=== PATIENT | female | born 1960 | race Caucasian/White ===

== ENCOUNTER 2022-12-12 17:37 | Inpatient (IN) | payer OTHER ==
[~2022-12-12] VITALS: Ht 30.5 cm; Wt 99.8 kg
--- NOTE | 2022-12-12 17:35 | NUR ---
PT ARRIVED ONTO UNIT, ACCOMPANIED BY [facility]. PT IS ALERT AND ORIENTED X3. ABLE TO VERBALIZE NEEDS, ABLE TO FOLLOW COMMANDS. PT IS ON 2L 02 VIA NC. NO SIGNS OF DISTRESS NOTED. NO COMPLAINTS OF SOB. ABD IS NONTENDER, NONDISTENDED WITH BOWEL SOUNDS PRESENT. PT IS ON CARDIAC MONITORING, SR AT THIS TIME. PT HAS HX OF SCHIZOPHRENIA, AND BIPOLAR DISORDER. DIAGNOSIS IS UTI. PT IS ON REGULAR DIET. LAST BOWEL MOVEMENT WAS ON 12/11/22. SKIN IS WARM, DRY, AND INTACT. VS TAKEN. MRSA SWAB DONE. PT IS DIRECT ADMISSION FROM [facility]. CALL LIGHT WITHIN REACH. ALL SAFETY MEASURES IN PLACE.
[2022-12-12] MEDS ORDERED: MAG SULF 2000 MG/WATER PREMIX 50 ML IV PRN (18:30)
[2022-12-12] MEDS ORDERED: ACETAMINOPHEN 325 MG TAB PO PRN (18:30)
[2022-12-12] MEDS ORDERED: DOCUSATE SODIUM 100 MG GELCAP PO PRN (18:30)
[2022-12-12] MEDS ORDERED: MORPHINE SULFATE 2 MG/ML SYR IVP PRN (18:30)
[2022-12-12] MEDS ORDERED: ONDANSETRON 4 MG/2 ML VIAL IVP PRN (18:30)
[2022-12-12 18:56] LABS: BASOPHILS # (AUTO) 0.1 K/uL (0.00-0.22); BASOPHILS % (AUTO) 0.6 % (0.0-2.0); EOSINOPHILS # (AUTO) 0.1 K/uL (0-0.4); EOSINOPHILS % (AUTO) 0.8 % (0.0-4.0); HEMATOCRIT 39.3 % (36-48); HEMOGLOBIN 13.1 g/dL (12.0-16.0); LYMPHOCYTES # (AUTO) 1.6 K/uL (2.5-16.5); LYMPHOCYTES % (AUTO) 10.4 % (20.5-51.1); MEAN CORPUSCULAR HEMOGLOBIN 29 pg (27-31); MEAN CORPUSCULAR HGB CONC 33 g/dL (33-37); MEAN CORPUSCULAR VOLUME 85.6 fL (80-94); MONOCYTES # (AUTO) 1.5 K/uL (0.8-1.0); MONOCYTES % (AUTO) 9.7 % (1.7-9.3); NEUTROPHILS # (AUTO) 11.9 K/uL (1.8-7.7); NEUTROPHILS % (AUTO) 78.5 % (42.2-75.2); PLATELET COUNT (AUTO) 345 K/uL (140-450); RED BLOOD CELL COUNT(AUTO) 4.59 MIL/uL (4.20-5.40); RED CELL DISTRIBUTION WIDTH 14.2 % (11.6-13.7); WHITE BLOOD COUNT (AUTO) 15.1 K/uL (4.8-10.8)
[2022-12-12 19:13] LABS: ALBUMIN 3.1 g/dL (3.4-5.0); ANION GAP 8.7 (8-16); CARBON DIOXIDE 31.1 mmol/L (21-32); CREATININE 0.5 mg/dL (0.6-1.3); TOTAL BILIRUBIN 0.4 mg/dL (0.0-1.0)
[2022-12-12 19:35] LABS: POTASSIUM 2.8 mmol/L (3.5-5.1)
--- NOTE | 2022-12-12 19:41 | NUR ---
ENDORSED PT TO AIR SUPPORT OPERATIONS OPERATOR NURSE, RALPH, FOR CONTINUITY OF CARE. PT IS STABLE.
--- NOTE | 2022-12-12 19:42 | NUR ---
RECD. RESTING IN BED, AWAKE, A/OX3. RESPIRATION EVEN AND UNLABORED. NEWLY INSERTED IV SALINE LOCK AT THE RIGHT AC G20, PATENT AND INTACT. VERBALIZED SHE USES A WALKER AT HOME. BEDSIDE COMMODE PLACED BESIDE BED. DENIES PAIN 0/10.
[2022-12-12 20:00] VITALS: BP 143/73
--- NOTE | 2022-12-12 20:00 | NUR ---
Patient's Plan of Care was discussed and reviewed with RALPH FERNANDO:
--- NOTE | 2022-12-12 21:00 | NUR ---
CHICKEN SANDWICH GIVEN BUT REFUSED TO EAT, DOES NOT LIKE THE TASTE. PUDDING AND CRACKERS GIVEN.
[2022-12-12] MEDS ORDERED: cefTRIAXone 1,000 MG VIAL ONE (21:44)
--- NOTE | 2022-12-12 22:00 | NUR ---
ASSISTED TO GO TO [facility]. ABLE TO VOID MODERATE AMOUNT OF CLEAR YELLOW URINE. REFUSED TO PUT SIDE RAILS UP. EXPLAINED ITS IMPORTANCE BUT STILL REFUSED.
[2022-12-12] MEDS ORDERED: HYDROXYZINE HYDROCHLORIDE 25 MG TAB PO SCH (22:55)
[2022-12-12] MEDS ORDERED: THEOPHYLLINE 300 MG TABER PO SCH (22:55)
[2022-12-12] MEDS: POTASSIUM CHLORIDE 10 MEQ TABER PO PRN (23:47)
--- NOTE | 2022-12-12 23:47 | NUR ---
K LEVEL - 2.8, MEDICATED WITH 40 MEQ K-DUR PO PER MD ORDER.
[2022-12-13] VITALS: BP 145/75
[2022-12-13] MEDS: oxyCODONE/APAP 5/325 MG 1 TAB TAB PO PRN ×4 (01:58→22:12)
[2022-12-13] MEDS: ZOLPIDEM 10 MG TAB PO PRN ×2 (02:44→22:12)
--- NOTE | 2022-12-13 02:45 | NUR ---
UNABLE TO SLEEP, MEDICATED WITH AMBIEN PER MD ORDER.
--- NOTE | 2022-12-13 03:30 | NUR ---
INFORM DR. CARRILLO, THEOPHYLLINE ER THAT PATIENT TAKES AT HOME NOT AVAILABLE IN THE [facility], PT REQUESTING FOR A REPLACEMENT FOR THIS MEDICATION. ORDERED BREATHING TREATMENT PRN FOR SOB/WHEEZING.
[2022-12-13 04:00] VITALS: BP 148/85
--- NOTE | 2022-12-13 05:30 | NUR ---
SITTING ON BED, ACCIDENTALLY WET HER BEDDINGS. ASSISTED TO CLEAN AND GOWN CHANGED.
--- NOTE | 2022-12-13 06:20 | NUR ---
INFORMED DR. JIMÉNEZ, PATIENT REFUSED TWICE FOR TELE MONITORING BOX TO BE PUT ON.
[2022-12-13] MEDS ORDERED: ALBUTEROL 0.083% 2.5 MG/3 ML NEBU INH PRN (06:25)
--- NOTE | 2022-12-13 07:23 | NUR ---
CONDITION REMAIN STABLE. ENDORSED TO AM SHIFT NURSE FOR CONTINUITY OF CARE.
[2022-12-13 07:45] LABS: BASOPHILS # (AUTO) 0.1 K/uL (0.00-0.22); BASOPHILS % (AUTO) 0.5 % (0.0-2.0); EOSINOPHILS # (AUTO) 0.2 K/uL (0-0.4); EOSINOPHILS % (AUTO) 1.8 % (0.0-4.0); HEMATOCRIT 39.1 % (36-48); HEMOGLOBIN 13.1 g/dL (12.0-16.0); LYMPHOCYTES # (AUTO) 1.9 K/uL (2.5-16.5); LYMPHOCYTES % (AUTO) 16.5 % (20.5-51.1); MEAN CORPUSCULAR HEMOGLOBIN 29 pg (27-31); MEAN CORPUSCULAR HGB CONC 34 g/dL (33-37); MEAN CORPUSCULAR VOLUME 86.1 fL (80-94); MONOCYTES % (AUTO) 8.9 % (1.7-9.3); NEUTROPHILS # (AUTO) 8.5 K/uL (1.8-7.7); NEUTROPHILS % (AUTO) 72.3 % (42.2-75.2); PLATELET COUNT (AUTO) 338 K/uL (140-450); RED BLOOD CELL COUNT(AUTO) 4.54 MIL/uL (4.20-5.40); RED CELL DISTRIBUTION WIDTH 14.4 % (11.6-13.7); WHITE BLOOD COUNT (AUTO) 11.7 K/uL (4.8-10.8)
[2022-12-13 08:00] VITALS: BP 133/71
[2022-12-13 08:16] LABS: ANION GAP 8.8 (8-16); CARBON DIOXIDE 32.3 mmol/L (21-32); CREATININE 0.5 mg/dL (0.6-1.3); MAGNESIUM 1.6 mg/dL (1.8-2.4); PHOSPHORUS 3.5 mg/dL (2.5-4.9); POTASSIUM 3.1 mmol/L (3.5-5.1)
[2022-12-13] MEDS: HYDROXYZINE HYDROCHLORIDE 25 MG TAB PO SCH ×3 (08:54→16:47)
[2022-12-13] MEDS: THEOPHYLLINE 300 MG TABER PO SCH ×3 (08:55→16:40)
[2022-12-13] MEDS: LORazepam 2 MG/ML VIAL IVP PRN ×3 (10:48→22:33)
[2022-12-13 12:00] VITALS: BP 135/54
--- NOTE | 2022-12-13 13:30 | NUR ---
DC PLANNING SW ATTEMPTED TO MEET WITH PT AT BEDSIDE TO COMPLETE ASSESSMENT HOWEVER, PT STRUGGLED TO STAY AWAKE. PT PROVIDED SW WITH PERMISSION TO CALL KA[facility] SERRANO, TO GATHER COLLAT INFO. OUTREACHED TO PTS DAUGHTER MAGGIE, HOWEVER MAGGIE UNAVAILABLE TO PROVIDE INFORMATION AT TIME OF CALL. MAGGIE REQUESTING TO CALL BACK. Addendum: 12/18/22 at 1619 by ABBY JARAMILLO CM DC PILLOW FILLER GENOVEVA: RECEIVED ORDER FOR SNF PLACEMENT. DC PILLOW FILLER FAXED TO [facility]. SPOKE WITH MURALI AND PT WAS ACCEPTED AT [place] [id number] . WILL BE GOING TO ROOM 9-A UNDER THE CARE OF DR. KIM NUMBER FOR REPORT IS . AUTH #[id number]. [facility] TRANSP[facility] WAS SETUP WITH [facility] FOR A 1999 PICKIP TIME. NURSE TAVON NEWELL CHARGE NURSE ZAIRA AND SISTER IN LAW FERNANDO AWARE OF THE ABOVE INFORMATION
--- NOTE | 2022-12-13 14:15 | NUR ---
SPOKE WITH SISTER MARIE, RECEIVED NUMBER FOR PT'S DAUGHTER MAGGIE WHO IS PRIMARY CAREGIVER.
--- NOTE | 2022-12-13 14:22 | NUR ---
SPOKE WITH PT'S PRIMARY CAREGIVER, DAUGHTER MAGGIE, CONFIRMED PREFERRED PHARMACY AND CODE STATUS. UPDATED DAUGHTER ON PT'S CONDITION.
[2022-12-13 16:00] VITALS: BP 138/63
--- NOTE | 2022-12-13 16:49 | NUR ---
PATIENT HAS BEEN SCREENED AND CATEGORIZED LOW NUTRITION RISK. PATIENT WILL BE SEEN WITHIN 7 DAYS OF ADMISSION. 12/19/[address]ZZ C[address]
[2022-12-13 17:41] LABS: APPEARANCE,URINE CLEAR (CLEAR); BILIRUBIN,URINE NEGATIVE (NEGATIVE); BLOOD, URINE 2+ (NEGATIVE); COLOR,URINE YELLOW (YELLOW); LEUKOCYTE ESTERASE ,URINE 1+ (NEGATIVE); NITRITE, URINE NEGATIVE (NEGATIVE); PH,URINE 7.5 (5.0-9.0); UGLUCOSE TRACE (NEGATIVE)
--- NOTE | 2022-12-13 18:39 | NUR ---
P.T. NOTES P.T. EVAL COMPLETED; REFER TO EVAL FOR DETAILS.
[2022-12-13] MEDS: POTASSIUM CHLORIDE 10 MEQ TABER PO PRN (19:18)
[2022-12-13 20:00] VITALS: BP 141/75
--- NOTE | 2022-12-13 20:00 | NUR ---
NURSE REPORT REPORT OBTAINED FROM DAYSTNFT NURSE AND THIS NURSE ASSUMED CARE OF PATIENT. MED SURG STATUS- SUNCE REFUSED TELE.
--- NOTE | 2022-12-13 22:00 | NUR ---
NURSE NOTES MEDICATED FOR PAIN WITH PERCOCET 1 TAB AND FOR ALSEEP AMBIEN. INCONTINENT OF URINE AND STOOL. PATIENT STILL ANXIOUS AND GIVEN ATIVAN 2 MG IVP.
[2022-12-14 04:00] VITALS: BP 174/102
--- NOTE | 2022-12-14 04:30 | NUR ---
NURSE NOTES PATIENT AWAKENED AND ASKED FOR PAIN MED AND ANXIETY MED. GIVEN PERCOCET 1 TAB PO AND ATIVAN 2 MG IVP X 1. SHE ALSO REQUESTED SLEEPING MED AND SHE WAS TOLD IT CAN'T BE GIVEN.
--- NOTE | 2022-12-14 07:30 | NUR ---
NURSE REPORT REPORT GIVEN TO [facility] NURSE IRVIN TO ASSUME CARE OF PATIENT. SBAR GIVEN. ALL QUESTIONS ANSWERED. YOLANDA CONTRERAS RN
--- NOTE | 2022-12-14 07:30 | NUR ---
RECEIVED REPORT FROM TACTICAL/MOBILE WATCH OFFICER NURSE FOR CONTINUITY OF CARE, POC DISCUSSED. PT STATES SHE WOULD LIKE A ROOM PHONE, TOLD HER ONE WILL GET SETUP IN HER ROOM SHORTLY. ON ROOM AIR WITH CHEST RISING AND FALLING EVEN AND UNLABORED. ALL SAFETY MEASURES IN PLACE, CALL LIGHT WITHIN REACH
[2022-12-14 07:31] LABS: ANION GAP 9.4 (8-16); BASOPHILS # (AUTO) 0.1 K/uL (0.00-0.22); BASOPHILS % (AUTO) 0.5 % (0.0-2.0); CARBON DIOXIDE 29.6 mmol/L (21-32); CREATININE 0.5 mg/dL (0.6-1.3); EOSINOPHILS # (AUTO) 0.4 K/uL (0-0.4); EOSINOPHILS % (AUTO) 3.5 % (0.0-4.0); HEMATOCRIT 39.1 % (36-48); HEMOGLOBIN 13.2 g/dL (12.0-16.0); LYMPHOCYTES # (AUTO) 2.2 K/uL (2.5-16.5); MEAN CORPUSCULAR HEMOGLOBIN 29 pg (27-31); MEAN CORPUSCULAR HGB CONC 34 g/dL (33-37); MEAN CORPUSCULAR VOLUME 85.6 fL (80-94); MONOCYTES # (AUTO) 1.1 K/uL (0.8-1.0); MONOCYTES % (AUTO) 9.3 % (1.7-9.3); NEUTROPHILS # (AUTO) 8.2 K/uL (1.8-7.7); NEUTROPHILS % (AUTO) 68.7 % (42.2-75.2); PLATELET COUNT (AUTO) 339 K/uL (140-450); RED BLOOD CELL COUNT(AUTO) 4.56 MIL/uL (4.20-5.40); RED CELL DISTRIBUTION WIDTH 14.2 % (11.6-13.7)
[2022-12-14 08:00] VITALS: BP 162/97
[2022-12-14] MEDS: POTASSIUM CHLORIDE 10 MEQ TABER PO PRN (08:52)
[2022-12-14] MEDS: HYDROXYZINE HYDROCHLORIDE 25 MG TAB PO SCH ×3 (08:53→17:35)
[2022-12-14] MEDS: THEOPHYLLINE 300 MG TABER PO SCH ×3 (08:54→17:35)
[2022-12-14] MEDS: oxyCODONE/APAP 5/325 MG 1 TAB TAB PO PRN ×3 (11:15→20:18)
[2022-12-14] MEDS: LORazepam 2 MG/ML VIAL IVP PRN ×2 (13:54→19:49)
--- NOTE | 2022-12-14 14:02 | NUR ---
PRN ATIVAN ADMINISTERED PER MD ORDER FOR PT YELLING AND UNABLE TO CONTROL. NONPHARM METHODS ATTEMPTED, COMFORT MEASURES, ANSWERS QUESTIONS, ALL NEEDS MET. PT UNCONSOLIBLE AND YELLING DISRESPECTFUL THINGS AT PT IN BED A. PT TOLERATED ADMINISTRATION. REITERATED THE IMPORTANCE OF KEEPING QUIET VOICE AND BEING RESPECTFUL TO ALL STAFF AND PTS/FAMILY.
[2022-12-14 20:00] VITALS: BP 158/95
--- NOTE | 2022-12-14 20:18 | NUR ---
NURSE REPORT REPORT OBTAINED FROM THE DAYSSDFT NURSE SHANNA AT 1915 AND THIS NURSE ASSUMED CARE. VSS. AFEB. C/O PAIN AND MEDICATED WITH PERCOCET 1 TAB. SHE WAS SCREAMING AT THE START OF PROJECT EXECUTIVE. GIVEN ATIVAN 2 MG IVP AT 1949. INCONTINENT OF STOOL AND URINE. CLEANSED BY CAN OPERATOR. YOLANDA CONTRERAS RN
[2022-12-14] MEDS: ZOLPIDEM 10 MG TAB PO PRN (22:00)
--- NOTE | 2022-12-15 | NUR ---
NURSE NOTES ASLEEP WITHOUT ANY SXS OF PAIN OR DISCOMFORT.
[2022-12-15] MEDS: oxyCODONE/APAP 5/325 MG 1 TAB TAB PO PRN (01:55)
[2022-12-15] MEDS ORDERED: LORazepam 1 MG TAB PO PRN (05:50)
[2022-12-15] MEDS ORDERED: LORazepam 1 MG TAB PO SCH (05:50)
--- NOTE | 2022-12-15 06:22 | NUR ---
NURSE NOTES DR SHARMA WAS SENT A TEXT ABOUT ORDERING HALDOL IM OR ATIVAN PO. HE ORDERED ATIVAN 2 MG PO Q6H PRN AGITATION. IS AWARE THAT SHE PULLED OUT THE IV. SHE HAS BEEN YELLING SINCE 399. PATIENT REFUSED ATIVAN. INCONTINENT OF STOOL AND WAS TOLD THAT THE BARBER STYLIST WILL CLEAN HER AND SHE STATED "I DON'T WANT TO BE CLEAN! LEAVE ME ALONE." YOLANDA CONTRERAS RN
[2022-12-15] MEDS: LORazepam 2 MG/ML VIAL IVP PRN (06:34)
--- NOTE | 2022-12-15 07:00 | NUR ---
NURSE NOTES STILL INCONTINENT OF STOOL, AND PATIENT STILL REFUSED TO BE CLEANSED. CHARGE NURSE WAS NOTIFIED ABOUT PATIENT REFUSAL.
--- NOTE | 2022-12-15 08:15 | NUR ---
Assumed care, found patient in bed naked with feces and off threat monitoring analyst. IV found in bed. Offered to clean her up but she refused. She is refusing all nursing care and treatment plan at this time. Will continue to offer assistance and reassurance as needed. Safety measures implemented.
--- NOTE | 2022-12-15 08:15 | NUR ---
NURSE REPORT REPORT GIVEN TO THE [facility] NURSE SANDOVAL TO ASSUME CARE OF PATIENT. ALL QUESTIONS ANSWERED. YOLANDA CONTRERAS RN
[2022-12-15] MEDS: THEOPHYLLINE 300 MG TABER PO SCH ×3 (09:00→17:00)
[2022-12-15] MEDS: HYDROXYZINE HYDROCHLORIDE 25 MG TAB PO SCH ×3 (09:00→17:00)
--- NOTE | 2022-12-15 12:28 | NUR ---
DR. KIM GAVE A VERBAL ORDER TO TRANSFER PT FROM TELEMETRY TO MED-SURG.
[2022-12-15 17:44] VITALS: BP 145/81
[2022-12-15 18:04] VITALS: BP 145/71
[2022-12-15] MEDS: ZOLPIDEM 10 MG TAB PO PRN (22:29)
--- NOTE | 2022-12-16 07:30 | NUR ---
RECEIVED REPORT FROM [facility] NURSEJORGE. PT AWAKE AND ALERT. NO SOB OR RESPIRATORY DISTRESS. ON RA. PT WITHDRAWN. REGULAR DIET. INCONTINENT. REFUSING CARE. NO IV ACCESS. REPORT FROM NIGHTSIDFT STATES SHE REFUSED IV INSERTION. NEEDS ALL MET AT THIS TIME. ALL SAFETY MEASURES IN PLACE.
--- NOTE | 2022-12-16 07:31 | NUR ---
NIGHTSHIFT NURSE STATES NO ORAL MEDS WERE GIVEN D/T PT REFUSING ALL ORAL MEDS. WILL CORRECT EMAR FOR 12/15/22 AND SELECT NON-ADMINISTRATION FOR DAYSHIFT NURSE YESTERDAY IN ORDER FOR AN UPDATED EMAR. DAYSHIFT NURSE DID NOT CHART FOR NON-ADMINISTRATION FOR 12/15/22.
[2022-12-16 08:00] VITALS: BP 178/92
[2022-12-16] MEDS: HYDROXYZINE HYDROCHLORIDE 25 MG TAB PO SCH ×3 (09:00→16:38)
[2022-12-16] MEDS: THEOPHYLLINE 300 MG TABER PO SCH ×3 (09:00→16:38)
--- NOTE | 2022-12-16 09:07 | NUR ---
PT REFUSED ALL ORAL MEDS. DOCUMENTED ON EMAR.
--- NOTE | 2022-12-16 09:07 | NUR ---
DR. SHARMA AWARE OF NO IV ACCESS AND PT REFUSING ALL MEDS. BLOOD PRESSURE REPORTED TO DR. SHARMA ALSO.
--- NOTE | 2022-12-16 10:50 | NUR ---
SPOKE WITH PT'S SISTER FERNANDO AND SHE STATES SHE IS WORRIED PT IS DECLINING. POC UPDATED. ALL QUESTIONS ANSWERED. WILL UPDATE PT'S SISTER ONCE MD ROUNDS.
--- NOTE | 2022-12-16 12:52 | NUR ---
DR. KIM ROUNDED ON PT. CONTACTED [employer] AND STATES DR PULIDO WILL CONTACT GRAYLING ONCE AVAILABLE. PHONE NUMBER PROVIDED. Addendum: 12/16/22 at 1740 by Agency [address] KIM ROUNDED ON PT. CONTACTED [employer] AND SPOKE WITH CHRISSIE AND HE STATES DR. AUSTIN WILL CONTACT GRAYLING ONCE HE IS AVAILABLE. PROVIDED PHONE NUMBER TO CHRISSIE FOR CALLBACK.
--- NOTE | 2022-12-16 14:00 | NUR ---
DR. HUGHES STATES HE WILL CALL LATER IN THE AFTERNOON.
[2022-12-16 16:00] VITALS: BP 146/89
[2022-12-16] MEDS ORDERED: HALOPERIDOL IM 5 MG/ML VIAL IM PRN (16:45)
--- NOTE | 2022-12-16 16:50 | NUR ---
PT TELE-PSYCH MEETING WITH DR. AUSTIN COMPLETED. DR. AUSTIN INPUTTED NEW ORDERS. PT STILL REFUSING PO MEDS.
--- NOTE | 2022-12-16 19:21 | NUR ---
BEDSIDE REPORT GIVEN TO NIGHTSHIFT NURSELATRELL FOR CONTINUITY OF CARE.
--- NOTE | 2022-12-16 19:22 | NUR ---
RECEIVED REPORT FROM MORNING SHIFT RN. PT IS AOX1-2, BEDREST, ABLE TO VERBALIZE NEEDS AND NOT ABLE TO FOLLOW COMMAND. DAUGHTER WAS ON BEDSIDE. PT IS ON ROOM AIR AND ON REGULAR DIET. PT NO IV. PT SKIN IS INTACT. NO S/S OF RESPIRATORY DISTRESS AND NO COMPLAIN OF PAIN AT THIS TIME. ALL SAFETY MEASURES IMPLEMENTED. BED IN LOW POSITION, BED WHEELS ON LOCK AND CALL LIGHT WITHIN REACH.
--- NOTE | 2022-12-16 20:37 | NUR ---
PT WAS GIVEN TYLENOL DUE TO HEADACHE. ALL SAFETY MEASURES IMPLEMENTED. BED IN LOW POSITION, BED WHEELS ON LOCK AND CALL LIGHT WITHIN REACH.
--- NOTE | 2022-12-16 22:00 | NUR ---
WARM BLANKET AND EXTRA PILLOW WAS GIVEN TO PT PER PT REQUEST. PT DENIES PAIN AT THIS TIME AND NO S/S OF RESPIRATORY DISTRESS NOTED. ALL SAFETY MEASURES IMPLEMENTED. BED IN LOW POSITION, BED WHEELS ON LOCK AND CALL LIGHT WITHIN REACH.
[2022-12-17] VITALS: BP 146/98
--- NOTE | 2022-12-17 | NUR ---
PT IS SLEEPING. CHEST RISE AND FALL SYMMETRICALLY NOTED. RESPIRATION IS EVEN AND UNLABORED. ALL SAFETY MEASURES IMPLEMENTED. BED IN LOW POSITION, BED WHEELS ON LOCK AND CALL LIGHT WITHIN REACH.
--- NOTE | 2022-12-17 02:00 | NUR ---
CHECKED THE PT, STILL SLEEPING. CHEST RISE AND FALL SYMMETRICALLY NOTED. RESPIRATION IS EVEN AND UNLABORED. ALL SAFETY MEASURES IMPLEMENTED. BED IN LOW POSITION, BED WHEELS ON LOCK AND CALL LIGHT WITHIN REACH.
--- NOTE | 2022-12-17 04:00 | NUR ---
MORNING CARE WAS DONE TO PT. CHANGED LINENS, GOWNS AND CHUCKS. ALL SAFETY MEASURES IMPLEMENTED. BED IN LOW POSITION, BED WHEELS ON LOCK AND CALL LIGHT WITHIN REACH.
--- NOTE | 2022-12-17 04:30 | NUR ---
BELT BUILDER HELPER TOLD ME TO COME BACK LATER TO WITHDRAW BLOOD SAMPLE.
--- NOTE | 2022-12-17 07:02 | NUR ---
receive the patinet in rm 108B aox4 bedrest admitting diagnosis of urinary tract infection , will continue to monitor
--- NOTE | 2022-12-17 07:31 | NUR ---
PT IS STABLE. ENDORSED PT TO THE MORNING SHIFT NURSE FOR CONTINUITY OF CARE.
[2022-12-17 08:00] VITALS: BP 152/92
[2022-12-17] MEDS: HYDROXYZINE HYDROCHLORIDE 25 MG TAB PO SCH ×3 (09:11→17:59)
[2022-12-17] MEDS: THEOPHYLLINE 300 MG TABER PO SCH ×3 (09:12→18:00)
--- NOTE | 2022-12-17 09:30 | NUR ---
sister in law talk to primary md for update . did some updated on the patient medications
[2022-12-17 16:00] VITALS: BP 186/85
[2022-12-17] MEDS: ZIPRASIDONE 40 MG CAP PO SCH (17:57)
[2022-12-17] MEDS: OXYBUTYNIN 5 MG TAB PO SCH ×2 (17:57→17:59)
[2022-12-17] MEDS: NITROFURANTOIN 100 MG CAP PO SCH (17:57)
--- NOTE | 2022-12-17 19:01 | NUR ---
will endorse to night rn for continuity of care
[2022-12-17 20:01] VITALS: BP 132/80
--- NOTE | 2022-12-18 06:05 | NUR ---
PATIENT REFUSED BLOOD DRAW
[2022-12-18] MEDS: LEVOTHYROXINE 0.05 MG TAB PO SCH ×2 (06:40→09:08)
--- NOTE | 2022-12-18 07:06 | NUR ---
RECEIVE THE PATIENT FROM THE HIGHWAY LANDSCAPE ARCHITECT RN IN RM 106b AOX2 ADMITTING DIAGNOSIS OF URINARY TRACT INFECTION . WILL CONTINUE TO MONITOR
[2022-12-18] MEDS ORDERED: PANTOPRAZOLE 40 MG TABEC PO SCH (09:00)
[2022-12-18] MEDS ORDERED: ATORVASTATIN 20 MG TAB PO SCH (09:00)
[2022-12-18] MEDS ORDERED: amLODIPine 5 MG TAB PO SCH (09:00)
[2022-12-18] MEDS ORDERED: ESCITALOPRAM 20 MG TAB PO SCH (09:00)
[2022-12-18] MEDS ORDERED: ASPIRIN 81 MG TAB.CHEW PO SCH (09:00)
[2022-12-18] MEDS: NITROFURANTOIN 100 MG CAP PO SCH ×2 (09:08→17:01)
[2022-12-18] MEDS: ZIPRASIDONE 40 MG CAP PO SCH ×3 (09:09→17:08)
[2022-12-18] MEDS: HYDROXYZINE HYDROCHLORIDE 25 MG TAB PO SCH ×3 (09:10→17:02)
[2022-12-18] MEDS: THEOPHYLLINE 300 MG TABER PO SCH ×3 (09:11→17:03)
[2022-12-18] MEDS: OXYBUTYNIN 5 MG TAB PO SCH ×3 (09:14→17:02)
--- NOTE | 2022-12-18 10:48 | NUR ---
the sister in law is here . would like to have an update . called md lama . said she will be here to meet with her Addendum: 12/18/22 at 1057 by Agency 04 JIM RN wrong patient
--- NOTE | 2022-12-18 15:00 | NUR ---
patient was discharge to [facility] with psyche md consult .
[2022-12-18] MEDS ORDERED: ASPI81CT95 PO (15:18)
[2022-12-18] MEDS ORDERED: ZIPR40CA39 PO (15:18)
[2022-12-18] MEDS ORDERED: PANT40EC56 PO (15:18)
[2022-12-18] MEDS ORDERED: OXYB-118 PO (15:18)
[2022-12-18] MEDS ORDERED: AMLO-3 PO (15:18)
[2022-12-18] MEDS ORDERED: ATA25 PO (15:18)
[2022-12-18] MEDS ORDERED: NITR100C15 PO (15:18)
[2022-12-18] MEDS ORDERED: ATOR20TA40 PO (15:18)
[2022-12-18] MEDS ORDERED: DOCU-299 PO (15:18)
[2022-12-18] MEDS ORDERED: ESCI20TA49 PO (15:18)
[2022-12-18] MEDS ORDERED: SYN.05 PO (15:18)
--- NOTE | 2022-12-18 15:50 | NUR ---
report was given to Harry luevano of [facility]
--- NOTE | 2022-12-18 16:08 | NUR ---
12/18/22 RD INITIAL ASSESSMENT COMPLETED PLEASE REFER TO NUTRITION ASSESSMENT UNDER CARE ACTIVITY FOR ESTIMATED NUTRITIONAL NEEDS. 1. RECOMMEND 2 GRAM NA DIET 2. RECOMMEND ENSURE BID. 3. RECOMMEND BANATROL BID FOR DIARRHEA 4. RD TO FOLLOW-UP 2-3 DAYS, HIGH RISK REVIEWED BY JAZZ CANTU RD
--- NOTE | 2022-12-18 16:44 | NUR ---
DC PLANNING: PATIENT GOT ACCEPTED AT [facility] ROOM 2A. [facility] FROM [facility] PROVIDE THE AUTH # [id number] ARRANGED TRANSPORT WITH [facility] PICK UPTIME 8PM
--- NOTE | 2022-12-18 18:34 | NUR ---
tonya waste picker [facility] ambulance to [facility] in stable condition . identification band has been remove
== END 2022-12-18 18:44 | DRG 71 ==
LOC: MTU 17:40
PROVIDERS: ADMIT Hospitalist; ATTEND Hospitalist
DX: G93.41 Metabolic encephalopathy (principal); N39.0 Urinary tract infection, site not specified; I10 Essential (primary) hypertension; F31.9 Bipolar disorder, unspecified; I25.10 Atherosclerotic heart disease of native coronary artery without angina pectoris; J45.909 Unspecified asthma, uncomplicated; K21.9 Gastro-esophageal reflux disease without esophagitis; M16.11 Unilateral primary osteoarthritis, right hip; M47.9 Spondylosis, unspecified; D72.829 Elevated white blood cell count, unspecified; E87.6 Hypokalemia; E83.51 Hypocalcemia; E83.42 Hypomagnesemia; G47.30 Sleep apnea, unspecified; K44.9 Diaphragmatic hernia without obstruction or gangrene; B96.20 Unspecified Escherichia coli [E. coli] as the cause of diseases classified elsewhere; E03.9 Hypothyroidism, unspecified; I25.2 Old myocardial infarction; Z87.891 Personal history of nicotine dependence; Z91.041 Radiographic dye allergy status; Z91.013 Allergy to seafood
CPT/HCPCS: 36415; 71045; 80048; 80053; 81001; 83605; 83735; 84100; 85025; 87040; 87081; 87086; 97110; 97112; 97116; 97530; J0696; J2060; J2270; J2405; J7060; Q0092

== ENCOUNTER 2022-12-24 13:04 | Inpatient (IN) | payer OTHER ==
[~2022-12-24] VITALS: Ht 162.6 cm; Wt 90.3 kg
[~2022-12-24 13:04] MED LIST: AMLO-3 PO; ASPI81CT95 PO; ATA25 PO; ATOR20TA40 PO; DOCU-299 PO; ESCI20TA49 PO; NITR100C15 PO; OXYB-118 PO; PANT40EC56 PO; SYN.05 PO; ZIPR40CA39 PO
[2022-12-24 13:11] VITALS: BP 157/116
--- NOTE | 2022-12-24 13:26 | NUR ---
TAKEN TO CT SCAN
[2022-12-24] MEDS ORDERED: NACL 0.9% 1,000 ML IV SCH (13:35)
--- NOTE | 2022-12-24 13:36 | NUR ---
BACK FROM CT SCAN
[2022-12-24] MEDS ORDERED: ACETAMINOPHEN 650 MG SUPP RC ONE ×2 (13:39→13:40)
--- NOTE | 2022-12-24 13:44 | NUR ---
RECTAL TEMP TAKEN, 100.6. DR FORD AWARE. ORDERS CARRIED OUT.
[2022-12-24 13:48] LABS: BASOPHILS # (AUTO) 0.1 K/uL (0.00-0.22); BASOPHILS % (AUTO) 0.6 % (0.0-2.0); EOSINOPHILS # (AUTO) 0.1 K/uL (0-0.4); EOSINOPHILS % (AUTO) 0.7 % (0.0-4.0); HEMATOCRIT 46.3 % (36-48); HEMOGLOBIN 15.4 g/dL (12.0-16.0); LYMPHOCYTES # (AUTO) 2.6 K/uL (2.5-16.5); LYMPHOCYTES % (AUTO) 17.8 % (20.5-51.1); MEAN CORPUSCULAR HEMOGLOBIN 29 pg (27-31); MEAN CORPUSCULAR HGB CONC 33 g/dL (33-37); MEAN CORPUSCULAR VOLUME 86.7 fL (80-94); MONOCYTES # (AUTO) 1.5 K/uL (0.8-1.0); MONOCYTES % (AUTO) 10.1 % (1.7-9.3); NEUTROPHILS # (AUTO) 10.5 K/uL (1.8-7.7); NEUTROPHILS % (AUTO) 70.8 % (42.2-75.2); PLATELET COUNT (AUTO) 463 K/uL (140-450); RED BLOOD CELL COUNT(AUTO) 5.34 MIL/uL (4.20-5.40); RED CELL DISTRIBUTION WIDTH 14.5 % (11.6-13.7); WHITE BLOOD COUNT (AUTO) 14.8 K/uL (4.8-10.8)
--- NOTE | 2022-12-24 14:00 | NUR ---
62YO FEMALE ANDREW QUILES C/O SEIZURE XTODAY. PER [facility], FACILITY REPORT WITNESSED 2MIN TONIC CLONIC SEIZURE WHILE LAYING IN BED. AT ARRIVAL PT AAOX2 TO NAME AND PLACE - AT BASELINE. RECEIVED ON 15L NON REBREATHER. 90% ROOM AIR, PLACED ON 6L NC. -INCONTINENCE OR ORAL TRAUMA. L ARM AND L KNEE PAIN ON MOVEMENT W/ ABRASION NOTED ON L KNEE. PER SISTER IN LAW, PT HAD UNWITNESSED FALL FROM BED ON 12/19/22. PT ON BLEACH BOILER PACKER, BED AT LOWEST POSITION, BED RAILS UPX2. SEIZURE PADS IN PLACE. HX: ASTHMA, HTN, HLD, HYPOTHYROID, GERD, OSTEOARTHRITIS, GLAUCOMA ALLERGIES: IODINE
[2022-12-24 14:01] LABS: PROTHROMBIN TIME 10.4 secs (10.8-13.4)
--- NOTE | 2022-12-24 14:04 | NUR ---
pt swabbed for covid(ellie), flu and rsv. handed to lab
--- NOTE | 2022-12-24 14:08 | NUR ---
XRAY AT BEDSIDE
[2022-12-24 14:13] LABS: ALBUMIN 3.3 g/dL (3.4-5.0); ANION GAP 12.1 (8-16); CARBON DIOXIDE 28.2 mmol/L (21-32); CREATININE 0.7 mg/dL (0.6-1.3); POTASSIUM 3.3 mmol/L (3.5-5.1); TOTAL BILIRUBIN 0.5 mg/dL (0.0-1.0)
--- NOTE | 2022-12-24 14:29 | NUR ---
FERNANDO -sister in law, amb to bed 7
--- NOTE | 2022-12-24 14:33 | NUR ---
REVIEWED ABG ORDER WITH DR. ALMAZ MUNOZ MD TO CANCEL ORDER
--- NOTE | 2022-12-24 14:39 | NUR ---
XRAY AT BEDSIDE
[2022-12-24 14:46] LABS: RSV NEGATIVE (NEGATIVE)
[2022-12-24] MEDS ORDERED: AZITHROMYCIN 500 MG in DEXTROSE 5% 250 ML IV ONE (14:50)
[2022-12-24 14:51] LABS: APPEARANCE,URINE CLEAR (CLEAR); BILIRUBIN,URINE 1+ (NEGATIVE); BLOOD, URINE 2+ (NEGATIVE); COLOR,URINE YELLOW (YELLOW); LEUKOCYTE ESTERASE ,URINE NEGATIVE (NEGATIVE); NITRITE, URINE NEGATIVE (NEGATIVE); UGLUCOSE NEGATIVE (NEGATIVE)
[2022-12-24] MEDS ORDERED: AZITHROMYCIN 500 MG INJ VIAL IV ONE (15:01)
[2022-12-24] MEDS ORDERED: cefTRIAXone 1,000 MG VIAL ONE (15:09)
[2022-12-24 15:13] LABS: RBC,URINE 0-5 /HPF (0-5); WBC,URINE NONE SEEN /HPF (0-5)
[2022-12-24 15:14] LABS: TRIPLE PHOSPHATE CRYSTAL,UR 0-10 /HPF (None Seen)
[2022-12-24] MEDS ORDERED: DORZ10SO22 OP (17:31)
[2022-12-24] MEDS ORDERED: ALBU2.5V IH (17:31)
[2022-12-24] MEDS ORDERED: ONDANSETRON 4 MG/2 ML VIAL IVP PRN (17:45)
[2022-12-24] MEDS ORDERED: MORPHINE SULFATE 2 MG/ML SYR IVP PRN (17:45)
[2022-12-24] MEDS ORDERED: ACETAMINOPHEN 325 MG TAB PO PRN (17:45)
[2022-12-24] MEDS ORDERED: levETIRAcetam 1,000 MG in NACL 0.9% 100 ML IV SCH (17:50)
[2022-12-24] MEDS: NACL 0.9% 1,000 ML IV SCH (18:40)
--- NOTE | 2022-12-24 18:55 | NUR ---
MD MADHAVI SAHA
--- NOTE | 2022-12-24 19:18 | NUR ---
REPORT GIVEN TO ENMANUEL FERNANDEZ . TRANSFER OF CARE AT THIS TIME
--- NOTE | 2022-12-24 19:30 | NUR ---
Patient received on bed lying comfortably and awake. Alert and oriented. No acute distress. No complaints of pain or discomfort. Respirations even and unlabored.
--- NOTE | 2022-12-24 19:35 | NUR ---
Patient placed on seizure precautions.
[2022-12-24] MEDS ORDERED: PIPERACILLIN/TAZOBACTAM 3.375 GM VIAL IV ONE (20:27)
[2022-12-24] MEDS: levETIRAcetam 500 MG in NACL 0.9% 100 ML IV SCH (20:33)
[2022-12-24] MEDS: PIPERACILLIN/TAZOBACTAM 3.375 GM in DEXTROSE 5% 50 ML IV SCH (20:37)
--- NOTE | 2022-12-24 21:04 | NUR ---
Called Telemetry Unit to give report. Spoke to JIM Mcgraw and stated she is currently giving medications to another patient and to call back after 10 minutes.
--- NOTE | 2022-12-24 21:24 | NUR ---
Called Telemetry Unit and gave report to JIM Mcgraw.
--- NOTE | 2022-12-24 21:50 | NUR ---
Patient will be admitted to care of Dr. Willis. Admited to Telemetry. Will go to room 110A. Belongings list completed. Report to JIM Mcgraw.
--- NOTE | 2022-12-24 21:50 | NUR ---
PATIENT WAS ADMITTED TO [facility] UNIT FROM ER VIA [facility] AWAKE ALERT WITH CONFUSION. O2 2L NC SATING 97%. NO S/S OF RESPIRATORY DISTRESS. NO COMPLAINTS OF PAIN. SKIN INTACT. MRSA SCREENING DONE. ALL SAFETY PRECAUTIONS ARE IN PLACE. CALL LIGHT ON EASY REACH.
--- NOTE | 2022-12-24 21:50 | NUR ---
Note velasquez in EDM - 12/24/22 at 2215 by [id number] Patient will be admitted to care of . Admited to Telemetry. Will go to room 110A. Belongings list completed. Report to JIM Mcgraw.
[2022-12-25] VITALS: BP 154/90
[2022-12-25] MEDS: NACL 0.9% 1,000 ML IV SCH ×3 (03:45→23:45)
[2022-12-25 04:00] VITALS: BP 177/98
--- NOTE | 2022-12-25 04:25 | NUR ---
PATIENT BP-177/98 P-116, NOTIFIED DR WOODS WITH ORDER TO RESUME HOME MEDS. NEED TO CLARIFY TO SNF WHEN WAS THE LAST MEDICATION TAKEN. PATIENT IS CONFUSED. ENDORSED TO EVITA FERNANDEZ AM SHIFT.
[2022-12-25] MEDS ORDERED: PIPERACILLIN/TAZOBACTAM 3.375 GM VIAL IV ONE (04:37)
[2022-12-25] MEDS: PIPERACILLIN/TAZOBACTAM 3.375 GM in DEXTROSE 5% 50 ML IV SCH ×3 (05:06→20:49)
[2022-12-25 06:49] LABS: ALBUMIN 2.9 g/dL (3.4-5.0); ANION GAP 11.1 (8-16); CARBON DIOXIDE 29.2 mmol/L (21-32); CREATININE 0.5 mg/dL (0.6-1.3); MAGNESIUM 1.7 mg/dL (1.8-2.4); POTASSIUM 3.3 mmol/L (3.5-5.1); TOTAL BILIRUBIN 0.6 mg/dL (0.0-1.0)
--- NOTE | 2022-12-25 07:10 | NUR ---
RECEIVED REPORT FROM LEAK HUNTER NURSE FOR CONTINUITY OF CARE. PT STABLE AT THIS TIME.
[2022-12-25 08:00] VITALS: BP 150/78
[2022-12-25] MEDS ORDERED: MAG SULF 2000 MG/WATER PREMIX 50 ML IV PRN (08:35)
[2022-12-25] MEDS: amLODIPine 5 MG TAB PO SCH (09:00)
[2022-12-25] MEDS: levETIRAcetam 500 MG in NACL 0.9% 100 ML IV SCH ×2 (09:13→20:51)
--- NOTE | 2022-12-25 09:53 | NUR ---
PATIENT HAS BEEN SCREENED AND CATEGORIZED MODERATE NUTRITION RISK. PATIENT WILL BE SEEN WITHIN 3-5 DAYS OF ADMISSION. REVIEWED BY JAZZ CANTU RD
[2022-12-25 12:00] VITALS: BP 159/84
[2022-12-25] MEDS: KCL 20 MEQ IN 100 mL PREMIX 200 ML IV PRN (15:42)
[2022-12-25 16:00] VITALS: BP 171/84
[2022-12-25] MEDS: hydrALAZINE 20 MG/ML VIAL IVP PRN (18:01)
--- NOTE | 2022-12-25 19:10 | NUR ---
ENDORSED PT TO DYNAMOTOR REPAIRER NURSE FOR CONTINUITY OF CARE. PT STABLE AT THIS TIME.
--- NOTE | 2022-12-25 19:15 | NUR ---
RECEIVED PT FROM AM NURSE FOR CONTINUITY OF CARE.PT IS STABLE
[2022-12-25 20:00] VITALS: BP 155/86
[2022-12-26] VITALS: BP 142/79
--- NOTE | 2022-12-26 02:00 | NUR ---
PATIENT ASLEEP, NOS/SX OF DISTRESS NOTED
[2022-12-26] MEDS: LORazepam 2 MG/ML VIAL IVP PRN (02:38)
[2022-12-26 04:00] VITALS: BP 149/84
[2022-12-26] MEDS: PIPERACILLIN/TAZOBACTAM 3.375 GM in DEXTROSE 5% 50 ML IV SCH ×3 (04:52→20:32)
[2022-12-26 08:00] VITALS: BP 156/91
[2022-12-26] MEDS: levETIRAcetam 500 MG in NACL 0.9% 100 ML IV SCH ×2 (08:56→20:41)
[2022-12-26] MEDS: amLODIPine 5 MG TAB PO SCH (09:00)
[2022-12-26] MEDS: NACL 0.9% 1,000 ML IV SCH ×2 (09:45→20:43)
[2022-12-26 10:18] LABS: BASOPHILS # (AUTO) 0.1 K/uL (0.00-0.22); BASOPHILS % (AUTO) 1.2 % (0.0-2.0); EOSINOPHILS # (AUTO) 0.3 K/uL (0-0.4); EOSINOPHILS % (AUTO) 2.7 % (0.0-4.0); HEMATOCRIT 40.4 % (36-48); HEMOGLOBIN 13.3 g/dL (12.0-16.0); LYMPHOCYTES # (AUTO) 1.8 K/uL (2.5-16.5); MEAN CORPUSCULAR HEMOGLOBIN 29 pg (27-31); MEAN CORPUSCULAR HGB CONC 33 g/dL (33-37); MEAN CORPUSCULAR VOLUME 87.7 fL (80-94); NEUTROPHILS # (AUTO) 6.9 K/uL (1.8-7.7); NEUTROPHILS % (AUTO) 68.1 % (42.2-75.2); PLATELET COUNT (AUTO) 376 K/uL (140-450); RED BLOOD CELL COUNT(AUTO) 4.61 MIL/uL (4.20-5.40); RED CELL DISTRIBUTION WIDTH 14.4 % (11.6-13.7); WHITE BLOOD COUNT (AUTO) 10.1 K/uL (4.8-10.8)
[2022-12-26 10:37] LABS: ALBUMIN 2.8 g/dL (3.4-5.0); ANION GAP 9.4 (8-16); CARBON DIOXIDE 27.9 mmol/L (21-32); CREATININE 0.5 mg/dL (0.6-1.3); POTASSIUM 3.3 mmol/L (3.5-5.1); TOTAL BILIRUBIN 0.5 mg/dL (0.0-1.0)
[2022-12-26] MEDS: KCL 20 MEQ IN 100 mL PREMIX 200 ML IV PRN (11:56)
[2022-12-26 12:00] VITALS: BP 173/98
[2022-12-26] MEDS: hydrALAZINE 20 MG/ML VIAL IVP PRN (15:41)
[2022-12-26 16:00] VITALS: BP 163/85
--- NOTE | 2022-12-26 16:09 | NUR ---
DC PLANNING ASSESSMENT COMPLETE PLEASE REFER TO ASSESSMENT FOR DETAILS PT IS A 62 YR OLD FEMALE ADMITTED TO [facility] FROM [facility]) WITH DX OF SEIZURE. PT HAS PAST MEDICAL HX OF HISTORY OF HIGH CHOLESTEROL, HYPERTENSION, HYPOTHYROIDISM, GERD, AND BIPOLAR DEPRESSION FERNANDO REPORTS PATIENT HAS HAS SEVERAL BEHAVIORAL HEALTH HOSPITALIZATIONS WITH THE MOST RECENT BEING APPROX ONE YR AGO. FERNANDO BROWN IS REPORTED TO BE PTS POA. FERNANDO REPORTS DC PLAN IS FOR PT TO RETURN TO WHEN MEDICALLY STABLE. FERNANDO REQUESTING CLINICAL UPDATE AND POC. FERNANDO REPORTS BEING CONCERNED WITH PTS BEHAVIOR/MEMORY THAT IS NOT BASELINE FOR PT. FERNANDO REPORTS SHE WILL BE AT BEDSIDE TOMORROW 12/26 AND IS REQUESTING TO SPEAK TO ENDORSED TO PT NURSE WHO REPORTS SHE WILL ENDORSE TO PHYSICIAN Addendum: 12/26/22 at 1611 by Aria CHANG Amended: Links added.
[2022-12-26] MEDS: ZIPRASIDONE 40 MG CAP PO SCH (17:19)
--- NOTE | 2022-12-26 19:25 | NUR ---
ENDORSED PT TO MOTOR CARRIER INSPECTOR NURSE FOR CONTINUITY OF CARE. PT STABLE AT THIS TIME.
[2022-12-26 20:00] VITALS: BP 166/100
--- NOTE | 2022-12-26 20:00 | NUR ---
NURSE REPORT REPORT OBTAINED FROM [facility] NURSE JAMA AT 1925 AND THIS NURSE ASSUMED CARE. VSS. AFEB. NO C/O PAIN OR DISCOMFORT. IV NS INFUSING AT 100 ML/HR IN R AC. NO REDNESS OR SWELLING.
[2022-12-27] VITALS (7 sets, daily range): BP systolic 108–178; BP diastolic 77–102
--- NOTE | 2022-12-27 00:45 | NUR ---
NURSE NOTES VS TAKEN. BP 176/102. GIVEN HYDRALAZINE 10 MG GIVEN IVP AND ATIVAN 1 MG GIVEN FOR ANXIETY.
[2022-12-27] MEDS: hydrALAZINE 20 MG/ML VIAL IVP PRN ×2 (01:07→15:37)
[2022-12-27] MEDS: LORazepam 2 MG/ML VIAL IVP PRN (01:09)
[2022-12-27] MEDS: PIPERACILLIN/TAZOBACTAM 3.375 GM in DEXTROSE 5% 50 ML IV SCH ×3 (05:28→20:12)
--- NOTE | 2022-12-27 05:30 | NUR ---
NURSE NOTES PATIENT PULLED OUT IV AND IV ZOSYN GIVEN 30 PRIOR. CLEANSED.
[2022-12-27] MEDS: NACL 0.9% 1,000 ML IV SCH ×2 (05:45→15:38)
[2022-12-27] MEDS ORDERED: LEVOTHYROXINE 0.05 MG TAB PO SCH (06:30)
--- NOTE | 2022-12-27 07:20 | NUR ---
receive the patinet from the retail shift manager rn in [id number] aox2 still 2L nasal canula , admitting diagnosis of seizures . still on levetiracetam . will continue to monitor .
--- NOTE | 2022-12-27 07:40 | NUR ---
NURSE REPORT REPORT GIVEN TO [facility] NURSE TAVON TO ASSUME CARE. ALL QUESTIONS ANSWERED. EXPLAINED TO TAVON THAT MAYBE THE PATIENT NEEDS A PICC LINE YOLANDA CONTRERAS RN
[2022-12-27] MEDS ORDERED: ESCITALOPRAM 20 MG TAB PO SCH (09:00)
[2022-12-27] MEDS ORDERED: amLODIPine 5 MG TAB PO SCH (09:00)
[2022-12-27] MEDS ORDERED: PANTOPRAZOLE 40 MG TABEC PO SCH (09:00)
[2022-12-27] MEDS ORDERED: ASPIRIN 81 MG TAB.CHEW PO SCH (09:00)
[2022-12-27] MEDS ORDERED: ATORVASTATIN 20 MG TAB PO SCH (09:00)
[2022-12-27] MEDS: amLODIPine 5 MG TAB PO SCH (09:09)
[2022-12-27] MEDS: ZIPRASIDONE 40 MG CAP PO SCH ×2 (09:10→17:21)
[2022-12-27] MEDS: levETIRAcetam 500 MG in NACL 0.9% 100 ML IV SCH ×2 (09:10→20:02)
--- NOTE | 2022-12-27 11:30 | NUR ---
patient complain of headache . acetaminophen was given .
--- NOTE | 2022-12-27 13:20 | NUR ---
patient was clean by the DINING SERVER . male nurse was refuse by the patinet . made clean and comfortable .
--- NOTE | 2022-12-27 13:44 | NUR ---
gave update with briseyda horne of power of environmental attorney . coleen also requested for a regular breathing treatment for the patinet due to COPD , asthma . will made the MD aware . also requesting for an update by the coleen from
[2022-12-27] MEDS ORDERED: KEP500 PO (14:40)
--- NOTE | 2022-12-27 16:10 | NUR ---
informed the briseyda the niece with power of tax associate attorney was informed of the discharge
--- NOTE | 2022-12-27 16:10 | NUR ---
blood pressure went up to 178/50 . hydralizine was given . will continue to monitor
--- NOTE | 2022-12-27 16:22 | NUR ---
ZOHAIB TOMAS RECEIVED ODER FOR PT TO RETURN TO .ZOHAIB BARBOSA FAXED TO [facility]. SPOKE WITH LORIN AT [facility] [address] [facility] [address]. PT WILL BE GOING TO [address] KIM. SNF AUTH#[id number]. [facility] SET UP WITH [facility] WITH A 2130 [employer]IC[employer] MEDIATOR TIME. TRANSPORTATION AUTH#[id number]. NURSE MONTES DE OCA AND SISTER IN LAW FERNANDO AWARE OF THE ABOVE INFORMATION.
--- NOTE | 2022-12-27 16:44 | NUR ---
gave report to Jignesh ding [phone] to rm 10C . pickling machine operator time is 21:30 by [facility]
--- NOTE | 2022-12-27 17:12 | NUR ---
blood pressure was re check . bp was down 144/90
--- NOTE | 2022-12-27 18:32 | NUR ---
will endorse to shift supervisor rn for continuity of care . possible discharge to [facility] ding . gave report to Harry possible picking machine operator by [facility] at 21:30
--- NOTE | 2022-12-27 20:00 | NUR ---
NURSE REPORT REPORT OBTAINED FROM [facility] NURSE TAVON AND THIS NURSE ASSUMED CARE. VSS. AFEB. NO C/O PAIN OR DISCOMFORT. TELE MONITOR WITH AFIB 80. STILL WITH CONF=GESTIVE COUGH. WILL GIVE TENSALON PEARLE FOR COUGH.
--- NOTE | 2022-12-27 21:00 | NUR ---
NURSE NOTES TENSALON PEARLE GIVEN FOR COUGH AND ALSO PATIENT HAD LAKEMA FOR THE HIGH POTASSIUM OF 5.1 O2 WITH 2 L/MIN PER NASAL CANNULA. VOIDS WELL IN URINAL.
--- NOTE | 2022-12-27 21:30 | NUR ---
CALLED [facility] #[id number] AND SPOKE TO BRADY FOR FOLLOW UP, STATED TRANSPORT WILL BE HERE IN AN HOUR BECAUSE THEY ARE RUNNING LATE, JIM CORONA MADE AWARE.
--- NOTE | 2022-12-27 23:30 | NUR ---
NURSE DISCHARGE NOTES PATIENT WAS D/C VIA [facility]. SL AND TELE MONITOR WAS DC'D. IV WAS DC'D WITH CATHETER INTACT.
== END 2022-12-27 23:40 | DRG 100 ==
LOC: MED 13:04 → MTU 17:48
PROVIDERS: ADMIT Hospitalist; ATTEND Hospitalist
DX: G40.89 Other seizures (principal); G93.41 Metabolic encephalopathy; J69.0 Pneumonitis due to inhalation of food and vomit; K21.9 Gastro-esophageal reflux disease without esophagitis; J45.909 Unspecified asthma, uncomplicated; E78.00 Pure hypercholesterolemia, unspecified; M17.12 Unilateral primary osteoarthritis, left knee; Z20.822 Contact with and (suspected) exposure to COVID-19; E87.6 Hypokalemia; Z91.041 Radiographic dye allergy status; Z91.013 Allergy to seafood; Z79.899 Other long term (current) drug therapy; Z79.82 Long term (current) use of aspirin
CPT/HCPCS: 36415; 70450; 71045; 73030; 73562; 80053; 80173; 81001; 82553; 83605; 83735; 83880; 84484; 85025; 85610; 85730; 87040; 87081; 87086; 87420; 96365; 96368; 99285; J0360; J0456; J0696; J1953; J2060; J2270; J2543; J3475; J3480; J7060; Q0092

== ENCOUNTER 2023-02-10 20:43 | Inpatient (IN) | payer OTHER ==
[~2023-02-10] VITALS: Ht 165.1 cm; Wt 82.6 kg
[~2023-02-10 20:43] MED LIST changes: +ALBU2.5V IH; +DORZ10SO22 OP; +KEP500 PO
--- NOTE | 2023-02-10 20:47 | NUR ---
ANDREW ALS TO BED #11
[2023-02-10 20:53] VITALS: BP 164/67
--- NOTE | 2023-02-10 21:06 | NUR ---
ER MD AT BEDSIDE EXAMINING PATIENT
--- NOTE | 2023-02-10 21:10 | NUR ---
Assumed care of patient via EMS [facility] to ER w/ c/o sob and desaturation. Patient noted at her facility to be "shaking" then started to have SOB w/ pox at 85-88%. Patient arrived to Er via NRB w/ pox of 100%. Noted to have accessory myos use and hypernea rate of 28-32. Introduced self to patient, positioned for comfort. bed to low position sr up, continue to monitor.
[2023-02-10 21:28] LABS: EOSINOPHILS # (AUTO) 0.1 K/uL (0-0.4); EOSINOPHILS % (AUTO) 0.8 % (0.0-4.0); HEMATOCRIT 37.5 % (36-48); HEMOGLOBIN 12.8 g/dL (12.0-16.0); LYMPHOCYTES # (AUTO) 0.3 K/uL (2.5-16.5); LYMPHOCYTES % (AUTO) 2.7 % (20.5-51.1); MEAN CORPUSCULAR HEMOGLOBIN 29 pg (27-31); MEAN CORPUSCULAR HGB CONC 34 g/dL (33-37); MEAN CORPUSCULAR VOLUME 85.4 fL (80-94); MONOCYTES # (AUTO) 0.1 K/uL (0.8-1.0); MONOCYTES % (AUTO) 0.6 % (1.7-9.3); NEUTROPHILS # (AUTO) 10.7 K/uL (1.8-7.7); NEUTROPHILS % (AUTO) 95.9 % (42.2-75.2); PLATELET COUNT (AUTO) 343 K/uL (140-450); RED BLOOD CELL COUNT(AUTO) 4.39 MIL/uL (4.20-5.40); RED CELL DISTRIBUTION WIDTH 16.2 % (11.6-13.7); WHITE BLOOD COUNT (AUTO) 11.2 K/uL (4.8-10.8)
--- NOTE | 2023-02-10 21:37 | NUR ---
patient to ct scan via gurney [facility] w/ manufacturing leader.
[2023-02-10 21:42] LABS: ANION GAP 15.4 (8-16); CARBON DIOXIDE 21.1 mmol/L (21-32); POTASSIUM 4.5 mmol/L (3.5-5.1); TOTAL BILIRUBIN 0.6 mg/dL (0.0-1.0)
[2023-02-10] MEDS ORDERED: NACL 0.9% 1,000 ML IV ONE ×2 (21:50→22:55)
--- NOTE | 2023-02-10 21:53 | NUR ---
patient returned from ct scan. will started on Normal Saline bolus as ordered. continue to monitor.
[2023-02-10 21:55] LABS: CREATININE 1.2 mg/dL (0.6-1.3)
[2023-02-10] MEDS ORDERED: DOXYCYCLINE 100 MG in DEXTROSE 5% 100 ML IV SCH (22:05)
[2023-02-10] MEDS ORDERED: cefTRIAXone 1,000 MG VIAL ONE (22:41)
--- NOTE | 2023-02-10 23:00 | NUR ---
Patient w/ diarreal stool, patient cleaned, diaper and gown changed. Repositioned patient for comfort. bed to low position sr up. in/out cath performed, patient ua obtained and sent to lab.
--- NOTE | 2023-02-10 23:20 | NUR ---
patient started in iv rocephin 1gm ivpb, will observe for any adverse reaction. bed to low position sr up, continue to monitor.
[2023-02-10 23:21] LABS: APPEARANCE,URINE CLEAR (CLEAR); BILIRUBIN,URINE NEGATIVE (NEGATIVE); BLOOD, URINE 3+ (NEGATIVE); COLOR,URINE YELLOW (YELLOW); LEUKOCYTE ESTERASE ,URINE 3+ (NEGATIVE); NITRITE, URINE NEGATIVE (NEGATIVE); UGLUCOSE NEGATIVE (NEGATIVE)
--- NOTE | 2023-02-10 23:25 | NUR ---
patient medicated as ordered w/ 0.9% 2nd liter bolus, iv site patent and intact. bed to low position sr up continue to monitor.
[2023-02-10] MEDS ORDERED: DOXYCYCLINE 100 MG VIAL IV ONE (23:46)
[2023-02-10] MEDS ORDERED: NACL 3% 500 ML IV ONE (23:50)
--- NOTE | 2023-02-10 23:57 | NUR ---
patient started on doxycycline ivpb as ordered. iv site to left forearm patent and intact. will observe for any adverse reaction. bed to low position sr up, continue to monitor.
[2023-02-11] VITALS (21 sets, daily range): BP systolic 94–177; BP diastolic 49–99
[2023-02-11 00:06] LABS: RBC,URINE 0-5 /HPF (0-5); WBC,URINE TOO MANY TO COUNT /HPF (0-5)
--- NOTE | 2023-02-11 00:10 | NUR ---
Patient started on iv 3%NACL at 100ml bolus over 10 minutes (600ml/hr) per MD iv site to right forearm patent and intact. bed to low position sr up. continue to monitor. will observe for any adverse reaction.
[2023-02-11] MEDS ORDERED: ONDANSETRON 4 MG/2 ML VIAL IVP PRN (00:15)
[2023-02-11] MEDS ORDERED: NACL 0.9% 1,000 ML IV SCH (00:15)
[2023-02-11 01:07] LABS: ALBUMIN 1.5 g/dL (3.4-5.0); ANION GAP 11.5 (8-16); POTASSIUM 3.5 mmol/L (3.5-5.1); TOTAL BILIRUBIN 0.6 mg/dL (0.0-1.0)
[2023-02-11 01:19] LABS: CREATININE 1.1 mg/dL (0.6-1.3)
--- NOTE | 2023-02-11 01:19 | NUR ---
Patient will be admitted to care of jessica JONES. Admited to ICU . Will go to room8. Belongings list completed. Report to gemma ext [phone].
[2023-02-11] MEDS: ACETAMINOPHEN 325 MG TAB PO PRN (01:24)
[2023-02-11] MEDS ORDERED: Z-GUARD PASTE TP ONE (01:38)
[2023-02-11] MEDS ORDERED: Z-GUARD PASTE TP PRN (03:30)
[2023-02-11] MEDS ORDERED: WATER STERILE 10 ML MC ONE (04:09)
[2023-02-11] MEDS ORDERED: methylPREDNISolone SS 40 MG/ML VIAL ONE (04:09)
--- NOTE | 2023-02-11 04:17 | NUR ---
PT ADMITTED FROM ER. HAND OFF RECEIVED FROM RICHAR FERNANDEZ. PT IS IS STABLE, VITAL SIGNS STABLE. SACRAL/COCCYX EXCORIATION ASSESSED AND Z-GUARD WAS APPLIED FOR PROTECTION. PT HAD A SMALL BM UPON ASSESSMMENT. PT IS LETHARGIC BUT IS ABLE TO FOLLOW COMMANDS BUT WILL FALL BACK ASLEEP. BILATERAL FOREARM IVS PRESENT UPON ADMISSION. PUREWICK PUT IN PLACE TO CATCH URINE
[2023-02-11] MEDS ORDERED: methylPREDNISolone SS 40 MG in WATER STERILE 1 ML IV SCH (05:00)
--- NOTE | 2023-02-11 06:27 | NUR ---
SPOKE TO SISTER IN LAW OF PATIENT FERNANDO BROWN AND WAS ASKED TO RESTART THE PATIENT ON HOME PSYCHE MEDS. DR FITO KIM WAS NOTIFIED VIA TEXT. WILL ENDORSE TO AM NURSE TO FOLLOW UP ON IT
--- NOTE | 2023-02-11 07:15 | NUR ---
RECEIVED REPORT FROM JIM LEON. PT AOX2 BUT CONFUSED. NS AT 80 ML/HR INFUSING ON R 20G IV. PT ON NASAL CANNULA AT 2L/MIN. PT ON PUREWICK ON SUCTION.
[2023-02-11] MEDS: ENOXAPARIN 40 MG/0.4 ML SYR SUBQ SCH (08:17)
--- NOTE | 2023-02-11 08:36 | NUR ---
PATIENT HAS BEEN SCREENED AND CATEGORIZED HIGH NUTRITION RISK. PATIENT WILL BE SEEN WITHIN 1-2 DAYS OF ADMISSION. 02/11/23-02/13/23 CONSULT REQUEST RECEIVED FOR MARCELLO 12, UNHEALED WOUND. SABASN WILL BE SEEN WITHIN 1-2 DAYS OF REFERRAL REVIEWED BY JAZZ CANTU RD
--- NOTE | 2023-02-11 10:45 | NUR ---
PT CONTINOUS TO BE CONFUSED AND RESTLESS, ATTEMPTED TO REORIENT PT, PROVIDE ALTERNATE ACTIVITIES FOR PT, AND PT CONTINOUS TO TRY TO PULL OFF MONITORING LINES AND IV'S. IV ON R AC WAS OUT, PT RESTLESS AND CONFUSED. PT'S IV ON L FOREARM NOTED OUT. INSERTED NEW IV ON R FOREARM 20 G
[2023-02-11] MEDS ORDERED: DEXTROSE 5% 1,000 ML IV SCH ×3 (13:05→20:55)
--- NOTE | 2023-02-11 13:27 | NUR ---
WOUND CARE NOTE: PT ADMITTED WITH AMS AND HYPOXIA. PT IN ROOM EATING LUNCH, ABLE TO FEED SELF. ASSIST IN TURNING. PT. ADMITTED WITH MODERATE MOISTURE ASSOCIATE SKIN DAMAGE, MULTIPLE SUPERFICIAL EROSIONS WITH RASHES. PER TRANSFER REPORT SHOWS THAT PT. HAS SACRALCOCCYX PRESSURE INJURY STAGE 3. SACRALCOCCYX 2X1X0.1CM WOUND BED PINK AND MOIST PINK, NO ODOR, CARA WOUND SKIN MASD WITH NON BLANCHABLE REDNESS. BILATERAL BUTTOCKS BLANCHABLE REDNESS. PT. WITH LOW MARCELLO SCALE AT HIGH RISK, CONTINUE TO FOLLOW PRESSURE INJURY PREVENTION INTERVENTIONS. POC DISCUSSED WITH PRIMARY RN ANETA. RECOMMENDATIONS: -GOOD CARA-CARE Q SHIFT AND PRN IF SOILING. APPLY TRIAMOLONE 0.5% CREAM TO SACRALCOCCYX CARA- WOUND SKIN AND BUTTOCKS BID -CLEANSE SACRALCOCCYX WITH NS PAT DRY, APPLY OIL EMULSION DRESSING TO WOUND BED, TRIAMOLONE CR. TO CARA WOUND SKIN AND COVER WITH FOAM DRESSING QD AND PRN IF SOILING -PRESSURE REDISTRIBUTION SURFACE THERAPY ANGEL ISOFLEX JESSE MATTRESS -POSITIONING: TURN AND REPOSITION PATIENT Q 2H OR SOONER USE PILLOWS TO KEEP BONY PROMINENCES FROM DIRECT CONTACT WITH SURFACES USE REPOSITIONING WEDGES TO PROVIDE 30-DEGREE ANGLE FOR SIDE LYING POSITIONS OFFLOADING OR FOAM DRESSING TO ALL TUBING TO PREVENT MEDICAL DEVICES RELATED PRESSURE INJURY -RE-EVALUATING AND MANAGING INCONTINENCE MONITOR SKIN CONDITION DURING POSITION CHANGE DO NOT MASSAGE REDNESS, BONY PROMINENCES FREQUENT CARA-CARE AND PROVIDE BARRIER CREAMS PRN IF SOILING MOISTURE CONTROL BY OFFER ABSORBENT PAD TO WICK AND HOLD MOISTURE KEEP SKIN DRY AND PROTECT FROM FRICTION -MANAGE FRICTION/SHEAR/MOBILITY KEEP HOB AT THE LOWEST LEVEL OF ELEVATION NO MORE THAN 30 DEGREE UNLESS OTHERWISE CONTRAINDICATED USE LIFT SHEET OR TRANSFER DEVICE TO MOVE PATIENT AND PREVENT LATERAL SHEER. PROTECT HEELS, ELBOWS BONY PROMINENCES WITH SKIN BERRIES OR FOAM DRESSING IF EXPOSED TO FRICTION OFFLOAD BILATERAL HEELS BY PLACING PILLOWS UNDER CALVES AT ALL TIMES, UNLESS OTHERWISE CONTRAINDICATED -NUTRITION: PLEASE FOLLOW RD RECOMMENDATIONS AND OFFER NUTRITION SUPPLEMENTS IF ORDERED. PLEASE CONTACT WOUND CARE NURSE FOR ANY QUESTION AND CHANGE OF WOUND CONDITION.
[2023-02-11 13:40] LABS: ALBUMIN 1.8 g/dL (3.4-5.0); ANION GAP 12.7 (8-16); CARBON DIOXIDE 20.7 mmol/L (21-32); CREATININE 1.1 mg/dL (0.6-1.3); POTASSIUM 4.4 mmol/L (3.5-5.1); TOTAL BILIRUBIN 0.3 mg/dL (0.0-1.0)
--- NOTE | 2023-02-11 13:45 | NUR ---
DR NEWMAN ROUNDED PT BEDSIDE. BMP TO BE DRAWN Q4 HRS. STRICT INTAKE AND OUTPUT. IF PT HAS 150 ML OF URINE IN 2 HRS NOTIFY HIM.
[2023-02-11 14:14] LABS: HEMATOCRIT 33.7 % (36-48); HEMOGLOBIN 11.3 g/dL (12.0-16.0); MEAN CORPUSCULAR HEMOGLOBIN 29 pg (27-31); MEAN CORPUSCULAR HGB CONC 34 g/dL (33-37); MEAN CORPUSCULAR VOLUME 85.6 fL (80-94); PLATELET COUNT (AUTO) 261 K/uL (140-450); RED BLOOD CELL COUNT(AUTO) 3.94 MIL/uL (4.20-5.40); RED CELL DISTRIBUTION WIDTH 16.2 % (11.6-13.7)
[2023-02-11 14:25] LABS: LYMPHOCYTES % (MANUAL) 3 % (20-46); MONOCYTES % (MANUAL) 9 % (5-12)
[2023-02-11] MEDS: methylPREDNISolone SS 40 MG/ML VIAL IVP SCH ×2 (14:27→21:45)
[2023-02-11] MEDS: TRIAMCINOLONE 0.5% CRM 15 GM TUBE TP SCH (14:40)
--- NOTE | 2023-02-11 14:44 | NUR ---
DR. MARKS ROUNDED AT PT BEDSIDE. PLAN OF CARE DISCUSSED WITH PT MD TO ENTER NEW ORDERS.
--- NOTE | 2023-02-11 15:01 | NUR ---
02/11/23 RD INITIAL ASSESSMENT COMPLETED PLEASE REFER TO NUTRITION ASSESSMENT UNDER CARE ACTIVITY FOR ESTIMATED NUTRITIONAL NEEDS. 1. CONTINUE REGULAR DIET TOLERATED 2. RECOMMEND ENSURE 1/DAY FOR WOUND SUPPORT -PROVIDES 350 KCAL AND [address] TO FOLLOW-UP 3-5 DAYS, MODERATE RISK REVIEWED BY JAZZ CANTU RD
[2023-02-11] MEDS: CEFEPIME 2,000 MG in DEXTROSE 5% 100 ML IV SCH (15:13)
--- NOTE | 2023-02-11 15:20 | NUR ---
DC PLANNING A 62 Y.O RESIDENT OF [facility] ADMITTED FOR SEIZURE ACTIVITY WITH ALTERED MENTAL STATUS PLUS HYPOXIA.HX OF SEIZURE DISORDER ON KEPPRA ,UNSPECIFIED PSYCH DISORDER AND HTN. (+) FOR INFLUENZA TYPE B.UA SIGNIFICANT FOR UTI.STARTED ON CEFTRIAXONE.NA+ WAS 111 .LATEST 116.GIVEN 0.3NACL 100CC FOLLOWED BY IVF NACL.NEPRO FOLLOWING.DC PLAN BACK TO [facility] WHEN PATIENT RESPONDS TO TX.CM TO FOLLOW. Addendum: 02/13/23 at 1159 by GERARDO REIS CM DC PLANNING NA LEVEL IMPROVED (124).PENDING URINE SENSITIVITY .NO HEMATOLOGY REQUEST TODAY.WBC HIGH FROM 02/12/23.MIGHT BE DOWNGRADED TO TELEMETRY.CM TO FOLLOW. Addendum: 02/13/23 at 1627 by GERARDO REIS CM LATE ENTRY WBC DOWN TO 45.URINE CULTURE(+) FOR PSEUDOMONAS A. BLOOD CULTURE (+)PROTEUS MIRABILIS.ABX CHANGED.UROLOGY FOLLOWING FOR GROSS HEMATURIA DUE TO ALATORRE CATH INSERTION TRAUMA.PATIENT WILL STAY IN ICU.CM TO FOLLOW. Addendum: 02/18/23 at 1344 by GERARDO REIS CM DC PLANNING PATIENT IN TELEMETRY NOW.AWAKE ,ALERT AND FOLLOWS COMMAND.NA LEVEL MUCH IMPROVED.LATEST 133..ON SODIUM CHLORIDE TABLETS PO.WBC DOWN TO 29.1.ALATORRE CATH NO MORE HEMATURIA.RECEIVED 1 UNIT PRBC.STILL ON DROPLET ISOLATION FOR INFLUENZA B.CM TO FOLLOW. Addendum: 02/19/23 at 7260 by ABBY JARAMILLO CM RECEIVED ORDER FOR PATIENT TO GO BACK TO SNF WITH IV ABX. FAXED TO [facility] AND [facility]. CALLED JAI FROM [facility] LOCATED AT [address] [facility] [id number]. PATIENT WILL BE GOING TO ROOM [address] MADERA. SKILLED AUTH# [id number] AND TRANSPORTATION AUTH # [id number] WAS GIVEN BY JENNY FROM [facility]. TRANSPORTATION SET UP WITH [facility] [facility] FOR A 1800 LOG BRANDER TIME. NURSE AWARE OF THE ABOVE INFORMATION AND SISTER IN LAW KING WAS LEFT A VOICE MAIL. Addendum: 02/19/23 at 1440 by ABBY JARAMILLO CM CALLED [facility] AND SPOKE WITH BRADY WHO INFORMED ME THE SOONEST AVAILABLE TRANSPORT IS FOR 0.
[2023-02-11] MEDS ORDERED: NACL 3% IV SCH (15:30)
--- NOTE | 2023-02-11 16:30 | NUR ---
DR NEWMAN TO INFUSE D5W @ 200 ML/HR. D/C 3% SODIUM CHLORIDE.
[2023-02-11 17:28] LABS: ANION GAP 13.1 (8-16); CARBON DIOXIDE 20.7 mmol/L (21-32); CREATININE 0.8 mg/dL (0.6-1.3); POTASSIUM 4.8 mmol/L (3.5-5.1)
[2023-02-11] MEDS ORDERED: hydrALAZINE 20 MG/ML VIAL IVP PRN (19:00)
--- NOTE | 2023-02-11 19:00 | NUR ---
DR CHANG INSTRUCTED TO LOWER INFUSION RATE OF D5W AT 150 ML/HR.
[2023-02-11 20:20] LABS: ANION GAP 11.2 (8-16); CARBON DIOXIDE 22.7 mmol/L (21-32); CREATININE 0.8 mg/dL (0.6-1.3); POTASSIUM 3.9 mmol/L (3.5-5.1)
--- NOTE | 2023-02-11 20:48 | NUR ---
CALLED DR SCHUSTER WITH 2000 LAB RESULTS. NEW ORDER RECIEVED
[2023-02-11] MEDS: levETIRAcetam 500 MG TAB PO SCH (21:46)
[2023-02-11] MEDS: LORazepam 2 MG/ML VIAL IVP PRN (23:24)
[2023-02-11] MEDS: HYDROcodone/APAP 5/325 MG 1 TAB TAB PO PRN (23:25)
[2023-02-12] VITALS (23 sets, daily range): BP systolic 109–177; BP diastolic 62–95
[2023-02-12] MEDS: TRIAMCINOLONE 0.5% CRM 15 GM TUBE TP SCH ×2 (01:11→14:41)
[2023-02-12 01:32] LABS: ANION GAP 10.1 (8-16); CARBON DIOXIDE 19.4 mmol/L (21-32); CREATININE 0.8 mg/dL (0.6-1.3); POTASSIUM 3.5 mmol/L (3.5-5.1)
[2023-02-12 02:17] LABS: ANION GAP 8.9 (8-16); CARBON DIOXIDE 24.3 mmol/L (21-32); CREATININE 0.8 mg/dL (0.6-1.3); POTASSIUM 4.2 mmol/L (3.5-5.1)
[2023-02-12] MEDS: CEFEPIME 2,000 MG in DEXTROSE 5% 100 ML IV SCH ×2 (04:00→17:40)
[2023-02-12 04:20] LABS: EOSINOPHILS % (AUTO) 1.9 % (0.0-4.0); HEMATOCRIT 35.7 % (36-48); HEMOGLOBIN 12.1 g/dL (12.0-16.0); LYMPHOCYTES # (AUTO) 10.7 K/uL (2.5-16.5); LYMPHOCYTES % (AUTO) 20.2 % (20.5-51.1); MEAN CORPUSCULAR HEMOGLOBIN 29 pg (27-31); MEAN CORPUSCULAR HGB CONC 34 g/dL (33-37); MONOCYTES # (AUTO) 0.4 K/uL (0.8-1.0); MONOCYTES % (AUTO) 0.8 % (1.7-9.3); NEUTROPHILS % (AUTO) 77.1 % (42.2-75.2); PLATELET COUNT (AUTO) 304 K/uL (140-450); RED BLOOD CELL COUNT(AUTO) 4.15 MIL/uL (4.20-5.40); RED CELL DISTRIBUTION WIDTH 15.7 % (11.6-13.7)
[2023-02-12 04:24] LABS: WHITE BLOOD COUNT (AUTO) 53.1 K/uL (4.8-10.8)
[2023-02-12 04:32] LABS: ANION GAP 9.7 (8-16); CARBON DIOXIDE 23.7 mmol/L (21-32); CREATININE 0.9 mg/dL (0.6-1.3); MAGNESIUM 1.6 mg/dL (1.8-2.4); POTASSIUM 4.4 mmol/L (3.5-5.1); TOTAL BILIRUBIN 0.2 mg/dL (0.0-1.0)
[2023-02-12] MEDS: methylPREDNISolone SS 40 MG/ML VIAL IVP SCH ×3 (05:13→20:34)
[2023-02-12] MEDS: LEVOTHYROXINE 0.05 MG TAB PO SCH (06:30)
--- NOTE | 2023-02-12 07:58 | NUR ---
pt resting in bed alert, made a comment about my uniform, grabbing at my arms, vss
[2023-02-12] MEDS: ZIPRASIDONE 40 MG CAP PO SCH ×2 (08:00→17:41)
--- NOTE | 2023-02-12 08:00 | NUR ---
lab at bedside at this time for BMP
[2023-02-12 08:42] LABS: ANION GAP 10.2 (8-16); CARBON DIOXIDE 23.8 mmol/L (21-32); CREATININE 0.7 mg/dL (0.6-1.3)
--- NOTE | 2023-02-12 08:43 | NUR ---
PT RESTING IN BED ALERT BUT CONFUSED. PT ON 2L NC WITH O2 SATURATION OF 96%. WILL CONTINUE TO MONITOR PT.
[2023-02-12] MEDS: PANTOPRAZOLE 40 MG TABEC PO SCH (09:00)
[2023-02-12] MEDS: levETIRAcetam 500 MG TAB PO SCH ×2 (09:00→20:34)
[2023-02-12] MEDS: OXYBUTYNIN 5 MG TAB PO SCH ×3 (09:00→17:41)
[2023-02-12] MEDS: ENOXAPARIN 40 MG/0.4 ML SYR SUBQ SCH (09:00)
[2023-02-12] MEDS: HYDROXYZINE HYDROCHLORIDE 25 MG TAB PO SCH ×3 (09:00→17:40)
[2023-02-12] MEDS: ESCITALOPRAM 20 MG TAB PO SCH (09:00)
[2023-02-12] MEDS: amLODIPine 5 MG TAB PO SCH (09:00)
[2023-02-12] MEDS: ASPIRIN 81 MG TAB.CHEW PO SCH (09:00)
[2023-02-12] MEDS ORDERED: NACL 0.9% 1,000 ML IV SCH (09:25)
[2023-02-12] MEDS: ATORVASTATIN 20 MG TAB PO SCH (10:00)
--- NOTE | 2023-02-12 11:33 | NUR ---
DR MARKS STATED TO FLUSH WITH 200CC Q2 TO 4HRS
--- NOTE | 2023-02-12 11:54 | NUR ---
LAB AT BED SIDE , URINE COLLECTED , DR FERRARO AWARE OF URINE COLOR STATED WILL CALL DR BOYD
[2023-02-12 13:02] LABS: ANION GAP 11.7 (8-16); CARBON DIOXIDE 23.8 mmol/L (21-32); CREATININE 0.7 mg/dL (0.6-1.3); POTASSIUM 4.5 mmol/L (3.5-5.1)
--- NOTE | 2023-02-12 13:17 | NUR ---
DC PLANNING ASSESSMENT COMPLETE PLEASE REFER TO ASSESSMENT FOR ADDITIONAL DETAILS PER ROBERT, PTS FAMILY IS NOTIFIED OF ADMISSIONS AND IS AWARE PT HAS BEEN ADMITTED TO [facility]. DC PLAN IS FOR PT TO RETURN TO , ONCE MEDICALLY STABLE. Addendum: 02/12/23 at 1318 by Aria Parsons SS Amended: Links added.
--- NOTE | 2023-02-12 13:35 | NUR ---
PT RETURNED FROM CT AT THIS TIME, NS DECREASED TO 75CC/HR
--- NOTE | 2023-02-12 13:52 | NUR ---
PT JOHANNE IS HERE REQUESTING FOR LAB RESULTS, I INFORMED HER THAT I CAN TAKE HER NUMBDER AND HAVE THE DOCTOR TO CALL HER AND SHE STATED PT BEEN ADMITTED 3 TIMES AND HE NEVER CALLS HER.
--- NOTE | 2023-02-12 16:19 | NUR ---
DR CHIRINOS AT BEDSIDE AWARE ON 150CC INSERTED, AWARE OF H/H STABLE, AWARE OF LABS DRAWN FOR [address]
[2023-02-12 16:35] LABS: ANION GAP 9.7 (8-16); CARBON DIOXIDE 25.6 mmol/L (21-32); CREATININE 0.7 mg/dL (0.6-1.3); POTASSIUM 4.3 mmol/L (3.5-5.1)
[2023-02-12] MEDS: MUPIROCIN CA NASAL 2% 1GM TUBE NS SCH (17:41)
[2023-02-12] MEDS: CHLORHEXADINE GLUC 2% CLOTH TP SCH (18:00)
--- NOTE | 2023-02-12 18:55 | NUR ---
PT ROMA LOPEZLLING FOR WATER, ICE CHIPS,DINNER TRAY WAS GIVEN
[2023-02-12 20:09] LABS: ANION GAP 10.6 (8-16); CARBON DIOXIDE 21.7 mmol/L (21-32); CREATININE 0.8 mg/dL (0.6-1.3); POTASSIUM 4.3 mmol/L (3.5-5.1)
--- NOTE | 2023-02-12 20:25 | NUR ---
DR MARKS NOTIFIED OF DOMENICO MARQUEZ 119. HE ORDERED FOR THE NS TO STOP AND TO START 3% SODIUM AT 40 ML/HR FOR A TOTAL OF OF 100ML. CLARIFIED IF "IT WAS SAFE FOR THE 3% TO GO THROUGH A REGUALR PERIPHERAL VASCULAR ACCESS" AND HE SAID "IT WILL BE OK AT THAT RATE."
[2023-02-12] MEDS ORDERED: NACL 3% 100 ML IV ONE (20:30)
[2023-02-12] MEDS: LORazepam 2 MG/ML VIAL IVP PRN (20:35)
[2023-02-13] VITALS (18 sets, daily range): BP systolic 103–152; BP diastolic 58–78
[2023-02-13 00:25] LABS: ANION GAP 7.2 (8-16); CARBON DIOXIDE 24.6 mmol/L (21-32); CREATININE 0.8 mg/dL (0.6-1.3); POTASSIUM 4.8 mmol/L (3.5-5.1)
[2023-02-13] MEDS ORDERED: NACL 3% 150 ML IV SCH (00:35)
[2023-02-13] MEDS: TRIAMCINOLONE 0.5% CRM 15 GM TUBE TP SCH ×2 (00:42→12:54)
--- NOTE | 2023-02-13 01:05 | NUR ---
DR MARKS NOTIFIED OF NA-120. NA 3% ORDERED FOR TOTAL VOLUME OF 150 ML AT 40 ML/HR
[2023-02-13] MEDS: CEFEPIME 2,000 MG in DEXTROSE 5% 100 ML IV SCH (04:00)
[2023-02-13 04:22] LABS: ANION GAP 9.6 (8-16); CARBON DIOXIDE 23.2 mmol/L (21-32); CREATININE 0.8 mg/dL (0.6-1.3); POTASSIUM 4.8 mmol/L (3.5-5.1)
[2023-02-13] MEDS: methylPREDNISolone SS 40 MG/ML VIAL IVP SCH (05:12)
--- NOTE | 2023-02-13 05:32 | NUR ---
SODIUM LEVELS ARE NOW 124 WHICH IS ACCEPTABLE RANGE FOR DR MARKS. GROSS HEMUTRIA WAS STILL PRESENT IN THE INDWELLING CATHETER WITH ABOUT 1800 ML OF URINE OUTPUT AND DR MARKS WAS NOTIFIED. LABORATORY ALSO CALLED WITHIN THE SHIFT AND SAID THAT WE HAVE TO CALL [facility] FOR THE SENT OUT URINE LABS AND THE FAX MACHINE IS BROKEN.
[2023-02-13] MEDS: LEVOTHYROXINE 0.05 MG TAB PO SCH (05:55)
--- NOTE | 2023-02-13 07:30 | NUR ---
RECEIVED REPORT FROM SINTER MACHINE OPERATOR. A0X3 WITH EPISODES OF FORGETFULNESS. NO C/O PAIN. NO RESPIRATORY DISTRESS ON 2L. WITH EPISODES OF DESATURATION WHEN ASLEEP. ALATORRE INTACT AND PATENT. DRAINING DARK RED URINE. WILL FLUSH ORDERED
[2023-02-13] MEDS: HYDROXYZINE HYDROCHLORIDE 25 MG TAB PO SCH ×3 (08:37→17:54)
[2023-02-13] MEDS: ASPIRIN 81 MG TAB.CHEW PO SCH (08:37)
[2023-02-13] MEDS: ZIPRASIDONE 40 MG CAP PO SCH ×2 (08:37→17:54)
[2023-02-13] MEDS: ENOXAPARIN 40 MG/0.4 ML SYR SUBQ SCH (08:38)
[2023-02-13] MEDS: amLODIPine 5 MG TAB PO SCH (08:38)
[2023-02-13] MEDS: OXYBUTYNIN 5 MG TAB PO SCH ×3 (08:38→17:54)
[2023-02-13] MEDS: levETIRAcetam 500 MG TAB PO SCH ×2 (08:38→21:36)
[2023-02-13] MEDS: ESCITALOPRAM 20 MG TAB PO SCH (08:38)
[2023-02-13] MEDS: PANTOPRAZOLE 40 MG TABEC PO SCH (08:38)
[2023-02-13] MEDS: ATORVASTATIN 20 MG TAB PO SCH (08:38)
[2023-02-13] MEDS: HYDROcodone/APAP 5/325 MG 1 TAB TAB PO PRN ×3 (08:45→23:47)
--- NOTE | 2023-02-13 09:00 | NUR ---
SEEN BY UROLOGY. CONTINUE PLAN TO IRRIGATE ALATORRE AND HOLD BLOOD THINNERS
[2023-02-13 09:20] LABS: ANION GAP 10.3 (8-16); CARBON DIOXIDE 23.2 mmol/L (21-32); CREATININE 0.8 mg/dL (0.6-1.3); POTASSIUM 4.5 mmol/L (3.5-5.1)
--- NOTE | 2023-02-13 11:00 | NUR ---
SEEN AND EXAMINED BY DR MARKS. UPDATE GIVEN TO PT'S SISTER FERNANDO.
[2023-02-13 12:17] LABS: ANION GAP 13.2 (8-16); CARBON DIOXIDE 21.4 mmol/L (21-32); CREATININE 0.9 mg/dL (0.6-1.3); POTASSIUM 4.6 mmol/L (3.5-5.1)
[2023-02-13] MEDS: SODIUM CHLORIDE 1 GM TAB PO SCH ×2 (12:55→17:54)
[2023-02-13 13:56] LABS: HEMOGLOBIN 8.9 g/dL (12.0-16.0); MEAN CORPUSCULAR HEMOGLOBIN 29 pg (27-31); MEAN CORPUSCULAR HGB CONC 33 g/dL (33-37); MEAN CORPUSCULAR VOLUME 86.7 fL (80-94); PLATELET COUNT (AUTO) 345 K/uL (140-450); RED BLOOD CELL COUNT(AUTO) 3.11 MIL/uL (4.20-5.40); RED CELL DISTRIBUTION WIDTH 16.4 % (11.6-13.7)
[2023-02-13 15:18] LABS: LYMPHOCYTES % (MANUAL) 4 % (20-46); MONOCYTES % (MANUAL) 7 % (5-12)
[2023-02-13 15:19] LABS: PROMYELOCYTES % 1 % (0-0)
[2023-02-13 16:13] LABS: ANION GAP 10.2 (8-16); CARBON DIOXIDE 24.4 mmol/L (21-32); CREATININE 0.8 mg/dL (0.6-1.3); POTASSIUM 4.6 mmol/L (3.5-5.1)
[2023-02-13] MEDS: MUPIROCIN CA NASAL 2% 1GM TUBE NS SCH (17:54)
[2023-02-13] MEDS: CHLORHEXADINE GLUC 2% CLOTH TP SCH (17:54)
[2023-02-13 20:07] LABS: ANION GAP 9.7 (8-16); CARBON DIOXIDE 24.7 mmol/L (21-32); CREATININE 0.8 mg/dL (0.6-1.3); POTASSIUM 4.4 mmol/L (3.5-5.1)
[2023-02-13] MEDS ORDERED: MEROPENEM 1,000 MG in NACL 0.9% 50 ML IV SCH (21:00)
[2023-02-13] MEDS: MEROPENEM 1,000 MG in NACL 0.9% 100 ML IV SCH (21:35)
[2023-02-13] MEDS: OSELTAMIVIR PHOSPHATE 75 MG CAP PO SCH (21:37)
[2023-02-14] VITALS (12 sets, daily range): BP systolic 115–147; BP diastolic 56–96
[2023-02-14 00:28] LABS: ANION GAP 10.3 (8-16); CARBON DIOXIDE 25.2 mmol/L (21-32); CREATININE 0.8 mg/dL (0.6-1.3); POTASSIUM 4.5 mmol/L (3.5-5.1)
[2023-02-14] MEDS: TRIAMCINOLONE 0.5% CRM 15 GM TUBE TP SCH ×2 (01:00→12:59)
[2023-02-14 04:45] LABS: BASOPHILS # (AUTO) 0.1 K/uL (0.00-0.22); BASOPHILS % (AUTO) 0.4 % (0.0-2.0); EOSINOPHILS # (AUTO) 0.2 K/uL (0-0.4); EOSINOPHILS % (AUTO) 0.8 % (0.0-4.0); HEMATOCRIT 23.9 % (36-48); HEMOGLOBIN 7.9 g/dL (12.0-16.0); LYMPHOCYTES # (AUTO) 2.8 K/uL (2.5-16.5); LYMPHOCYTES % (AUTO) 8.8 % (20.5-51.1); MEAN CORPUSCULAR HEMOGLOBIN 28 pg (27-31); MEAN CORPUSCULAR HGB CONC 33 g/dL (33-37); MEAN CORPUSCULAR VOLUME 86.2 fL (80-94); MONOCYTES % (AUTO) 6.1 % (1.7-9.3); NEUTROPHILS # (AUTO) 26.7 K/uL (1.8-7.7); NEUTROPHILS % (AUTO) 83.9 % (42.2-75.2); PLATELET COUNT (AUTO) 297 K/uL (140-450); RED BLOOD CELL COUNT(AUTO) 2.77 MIL/uL (4.20-5.40)
[2023-02-14 04:49] LABS: WHITE BLOOD COUNT (AUTO) 31.9 K/uL (4.8-10.8)
[2023-02-14 05:15] LABS: ALBUMIN 1.9 g/dL (3.4-5.0); CARBON DIOXIDE 26.5 mmol/L (21-32); CREATININE 0.8 mg/dL (0.6-1.3); POTASSIUM 4.5 mmol/L (3.5-5.1); TOTAL BILIRUBIN 0.2 mg/dL (0.0-1.0)
[2023-02-14] MEDS: LEVOTHYROXINE 0.05 MG TAB PO SCH (06:27)
--- NOTE | 2023-02-14 07:30 | NUR ---
Opening Received report on pt. Pt AAOx1, forgetful. Pt states no pain, no distress noted at this time on 3L O2 via nasal cannula. IV sites intact, patent, no infiltration noted. Hager with red urine output and clots.
--- NOTE | 2023-02-14 07:33 | NUR ---
Dr Landaverde ordered patient to be on fluid restriction of 1oooml/day, patient still passing out a lot of blood in her urine and MD made aware Patient vitals are stable .Endorsed report
--- NOTE | 2023-02-14 08:35 | NUR ---
Dr. Jhaveri rounding on pt, states to notify him if sodium is 127. Also states pt is okay for downgrade.
[2023-02-14 09:38] LABS: ANION GAP 11.2 (8-16); CARBON DIOXIDE 23.9 mmol/L (21-32); CREATININE 0.7 mg/dL (0.6-1.3); POTASSIUM 4.1 mmol/L (3.5-5.1)
[2023-02-14] MEDS: MEROPENEM 1,000 MG in NACL 0.9% 100 ML IV SCH ×2 (09:55→20:15)
[2023-02-14] MEDS: PANTOPRAZOLE 40 MG TABEC PO SCH (09:56)
[2023-02-14] MEDS: HYDROXYZINE HYDROCHLORIDE 25 MG TAB PO SCH ×3 (09:57→16:47)
[2023-02-14] MEDS: amLODIPine 5 MG TAB PO SCH (09:57)
[2023-02-14] MEDS: levETIRAcetam 500 MG TAB PO SCH ×2 (09:57→21:03)
[2023-02-14] MEDS: ESCITALOPRAM 20 MG TAB PO SCH (09:57)
[2023-02-14] MEDS: ATORVASTATIN 20 MG TAB PO SCH (09:57)
[2023-02-14] MEDS: OSELTAMIVIR PHOSPHATE 75 MG CAP PO SCH ×2 (10:00→21:03)
--- NOTE | 2023-02-14 10:00 | NUR ---
Irrigated camacho catheter with 300 ml NS, still note red output with clots.
[2023-02-14] MEDS: ZIPRASIDONE 40 MG CAP PO SCH ×2 (10:01→16:47)
[2023-02-14] MEDS: OXYBUTYNIN 5 MG TAB PO SCH ×3 (10:01→16:47)
[2023-02-14] MEDS ORDERED: SODIUM CHLORIDE 1 GM TAB PO SCH (12:00)
--- NOTE | 2023-02-14 13:30 | NUR ---
Irrigation done, still note red output with clots.
[2023-02-14 14:07] LABS: ANION GAP 8.3 (8-16); CREATININE 0.6 mg/dL (0.6-1.3); POTASSIUM 4.3 mmol/L (3.5-5.1)
--- NOTE | 2023-02-14 15:30 | NUR ---
Transfer to Tele Pt transfer to tele 117A via bed with continuous monitoring. Pt in no distress, tolerated well. All belongings sent with pt. Pt's daughter present at bedside and aware. Addendum: 02/14/23 at 1849 by Agency 08 JIM FERNANDEZ intake 800 ml, output 850. Barb FERNANDEZ.
--- NOTE | 2023-02-14 15:50 | NUR ---
PT WAS BROUGHT BY ICU IN STABLE CONDITION. PT A&OX3. ABLE TO MAKE NEEDS KNOW. SKIN APPEARS PALE, INTACT WITH SACRAL DERMITIS, FOAM DRESSING IN PLACE. ON 3L NC SATING AT 99%. RONCHI LUNG SOUNDS, LOWER BASES. IVS PATENT AND INTACT, SALINE LOCK. S1 AND S2 HEART SOUNDS, SR ON TELE MONITOR. 97.3 TEMP, 115/64 BLOOD PRESSURE. PT HAS A ALATORRE, DARK HEMATURIA NOTED. ICU ENDORSED q3 IRRIGATION OF ALATORRE WITH 200CC. NEXT TIME IS 1730. PT BELONGINGS CONSIST OF STUFFED ANIMAL, AND GLASSES IN A GLASSES CASE. PLACED AT BEDSIDE. DAUGHTER AT BEDSIDE. ALL SAFETY MEASURES IN PLACE, CALL LIGHT WITHIN REACH.
[2023-02-14] MEDS: MUPIROCIN CA NASAL 2% 1GM TUBE NS SCH (16:47)
--- NOTE | 2023-02-14 16:47 | NUR ---
SCHEDULED MEDICATION ADMINISTERED PER MD ORDER, PT TOLERATED ADMINISTRATION. 10 CC WATER GIVEN WITH MEDS, PT REQUESTING MORE BUT EDUCATED ON HOW PT HAS ALREADY REACHED HER MAX ON FLUIDS FOR THE DAY. ORAL SWAB PROVIDED FOR COMFORT MEASURES OF DRY MOUTH.
[2023-02-14] MEDS: CHLORHEXADINE GLUC 2% CLOTH TP SCH (16:48)
--- NOTE | 2023-02-14 17:30 | NUR ---
ALATORRE IRRIGATION COMPLETED WITH 200CC, BRIGHT RED HEMATURIA NOTED WITH BLOOD CLOTS. 850 CC HEMATURIA EMPTIED FROM ALATORRE. MRSA TX COMPLETED PER MD ORDER.
[2023-02-14 19:47] LABS: ANION GAP 7.2 (8-16); CARBON DIOXIDE 29.2 mmol/L (21-32); CREATININE 0.6 mg/dL (0.6-1.3); POTASSIUM 4.4 mmol/L (3.5-5.1)
--- NOTE | 2023-02-14 19:48 | NUR ---
RECEIVED REPORT FROM IRVIN FERNANDEZ FOR CONTINUITY OF CARE. PATIENT WAS STABLE DURING SHIFT REPORT. PATIENT WAS NOTED IN BED ASLEEP BUT EASY TO AROUSE BY CALLING HER NAME. PATIENT DID NOT HAVE HER OXYGEN ON AND NO S/S OF RESPIRATORY DISTRESS OR DISCOMFORT. ALATORRE DRAINAGE NOTED BRIGHT RED WITH NO SENTIMENTS. PATIENT DENIES ANY PAIN/DISCOMFORT AT THIS TIME. SIDE RAILS UP X 3 FOR SAFETY AND COMFORT. CALL LIGHT WITHIN REACH. [email or web address]
[2023-02-14] MEDS: HYDROcodone/APAP 5/325 MG 1 TAB TAB PO PRN (21:11)
[2023-02-14 22:22] LABS: ANION GAP 8.3 (8-16); CARBON DIOXIDE 26.9 mmol/L (21-32); CREATININE 0.6 mg/dL (0.6-1.3); POTASSIUM 4.2 mmol/L (3.5-5.1)
--- NOTE | 2023-02-14 22:55 | NUR ---
PATIENT WAS ABLE TOLERATED MEDICATION PASS WITHOUT INCIDENT. REQUESTED A NORCO FOR PAIN TO HER SHOULDER. PATIENT WANT MORE LIQUIDS BUT WAS GIVEN PATIENT EDUCATION THE IMPORTANCE OF STRICT INTAKE AND OUTPUT. SHE STATED SHE UNDERSTOOD BUT SHORTLY ASKED FOR MORE WATER. NURSING GAVE ORAL CARE AND THE ORAL SPONGES DIPPED IN WATER TO REFRESH HER MOUTH. [email or web address]
[2023-02-15] VITALS: BP 102/54
[2023-02-15] MEDS: TRIAMCINOLONE 0.5% CRM 15 GM TUBE TP SCH ×2 (01:02→13:00)
--- NOTE | 2023-02-15 01:24 | NUR ---
PATIENT NOTED IN BED ASLEEP. CHEST RISING AND FALLING EVENLY. NO NOTED S/S OF PAIN/DISCOMFORT. NO NOTED S/S OF RESPIRATORY DISTRESS. CALL LIGHT WITHIN REACH. [email or web address]
--- NOTE | 2023-02-15 03:07 | NUR ---
DURING ROUNDS NURSING NOTED PATIENT ASLEEP. NO NOTED S/S OF PAIN/DISCOMFORT. NO NOTED S/S OR RESPIRATORY DISTRESS. CHEST RISING AND FALLING EVENLY. SIDE RAILS UP X 2 CALL LIGHT WITHIN REACH. NURSING WILL FREQUENT THIS ROOM FOR ANTICIPATED ASSISTANCE. [email or web address]
[2023-02-15 04:00] VITALS: BP 104/58
--- NOTE | 2023-02-15 05:09 | NUR ---
NURSING NOTED PATIENT ASLEEP. NO NOTED S/S OF PAIN/DISCOMFORT. NO NOTED S/S OR RESPIRATORY DISTRESS. CHEST RISING AND FALLING EVENLY. SIDE RAILS UP X 2 CALL LIGHT WITHIN REACH. [email or web address]
[2023-02-15] MEDS: LEVOTHYROXINE 0.05 MG TAB PO SCH (05:48)
--- NOTE | 2023-02-15 07:22 | NUR ---
ENDORSED TO AM SHIFT NURSE FOR CONTINUITY OF CARE. PLEASE FOLLOW UP WITH THE ALATORRE IRRIGATION. [email or web address]
[2023-02-15 08:00] VITALS: BP 116/67
[2023-02-15] MEDS: ZIPRASIDONE 40 MG CAP PO SCH ×2 (08:00→17:22)
[2023-02-15] MEDS: amLODIPine 5 MG TAB PO SCH (09:00)
[2023-02-15] MEDS: levETIRAcetam 500 MG TAB PO SCH ×2 (09:00→23:49)
[2023-02-15] MEDS: HYDROXYZINE HYDROCHLORIDE 25 MG TAB PO SCH ×3 (09:00→17:25)
[2023-02-15] MEDS: ESCITALOPRAM 20 MG TAB PO SCH (09:00)
[2023-02-15] MEDS: OSELTAMIVIR PHOSPHATE 75 MG CAP PO SCH ×2 (09:00→23:49)
[2023-02-15] MEDS: MEROPENEM 1,000 MG in NACL 0.9% 100 ML IV SCH ×2 (09:00→23:48)
[2023-02-15] MEDS: OXYBUTYNIN 5 MG TAB PO SCH ×3 (09:00→17:00)
[2023-02-15] MEDS: ATORVASTATIN 20 MG TAB PO SCH (09:00)
[2023-02-15 11:01] LABS: CARBON DIOXIDE 28.5 mmol/L (21-32); CREATININE 0.5 mg/dL (0.6-1.3); POTASSIUM 4.5 mmol/L (3.5-5.1)
[2023-02-15 11:28] LABS: BASOPHILS # (AUTO) 0.1 K/uL (0.00-0.22); BASOPHILS % (AUTO) 0.4 % (0.0-2.0); EOSINOPHILS # (AUTO) 0.1 K/uL (0-0.4); EOSINOPHILS % (AUTO) 0.3 % (0.0-4.0); HEMATOCRIT 22.9 % (36-48); HEMOGLOBIN 7.7 g/dL (12.0-16.0); LYMPHOCYTES # (AUTO) 2.8 K/uL (2.5-16.5); LYMPHOCYTES % (AUTO) 7.3 % (20.5-51.1); MEAN CORPUSCULAR HEMOGLOBIN 29 pg (27-31); MEAN CORPUSCULAR HGB CONC 34 g/dL (33-37); MEAN CORPUSCULAR VOLUME 86.2 fL (80-94); MONOCYTES # (AUTO) 1.6 K/uL (0.8-1.0); MONOCYTES % (AUTO) 4.2 % (1.7-9.3); NEUTROPHILS % (AUTO) 87.8 % (42.2-75.2); PLATELET COUNT (AUTO) 390 K/uL (140-450); RED BLOOD CELL COUNT(AUTO) 2.66 MIL/uL (4.20-5.40); RED CELL DISTRIBUTION WIDTH 15.9 % (11.6-13.7)
[2023-02-15 11:31] LABS: WHITE BLOOD COUNT (AUTO) 38.7 K/uL (4.8-10.8)
[2023-02-15 12:00] VITALS: BP 104/58
[2023-02-15] MEDS: PANTOPRAZOLE 40 MG TABEC PO SCH (12:30)
[2023-02-15] MEDS: SODIUM CHLORIDE 1 GM TAB PO SCH ×2 (13:00→17:00)
[2023-02-15 16:00] VITALS: BP 108/53
[2023-02-15] MEDS: MUPIROCIN CA NASAL 2% 1GM TUBE NS SCH (17:22)
[2023-02-15] MEDS: CHLORHEXADINE GLUC 2% CLOTH TP SCH (17:24)
[2023-02-15 20:00] VITALS: BP 105/65
[2023-02-15] MEDS: HYDROcodone/APAP 5/325 MG 1 TAB TAB PO PRN (23:54)
[2023-02-16] VITALS: BP 107/66
[2023-02-16] MEDS: TRIAMCINOLONE 0.5% CRM 15 GM TUBE TP SCH ×2 (01:00→12:51)
[2023-02-16 04:00] VITALS: BP 105/65
[2023-02-16] MEDS: LEVOTHYROXINE 0.05 MG TAB PO SCH (06:11)
[2023-02-16 08:00] VITALS: BP 128/58
[2023-02-16] MEDS: ZIPRASIDONE 40 MG CAP PO SCH ×2 (09:17→16:51)
[2023-02-16] MEDS: MEROPENEM 1,000 MG in NACL 0.9% 100 ML IV SCH ×2 (09:18→21:17)
[2023-02-16] MEDS: OXYBUTYNIN 5 MG TAB PO SCH ×3 (09:19→16:50)
[2023-02-16] MEDS: levETIRAcetam 500 MG TAB PO SCH ×2 (09:19→21:16)
[2023-02-16] MEDS: HYDROXYZINE HYDROCHLORIDE 25 MG TAB PO SCH ×3 (09:19→16:51)
[2023-02-16] MEDS: ATORVASTATIN 20 MG TAB PO SCH (09:20)
[2023-02-16] MEDS: ESCITALOPRAM 20 MG TAB PO SCH (09:20)
[2023-02-16] MEDS: PANTOPRAZOLE 40 MG TABEC PO SCH (09:21)
[2023-02-16] MEDS: amLODIPine 5 MG TAB PO SCH (09:21)
[2023-02-16] MEDS: SODIUM CHLORIDE 1 GM TAB PO SCH ×3 (09:21→16:51)
[2023-02-16] MEDS: OSELTAMIVIR PHOSPHATE 75 MG CAP PO SCH ×2 (09:24→21:16)
[2023-02-16 12:00] VITALS: BP 101/69
[2023-02-16] MEDS: HYDROcodone/APAP 5/325 MG 1 TAB TAB PO PRN ×3 (13:07→21:50)
[2023-02-16] MEDS: MUPIROCIN CA NASAL 2% 1GM TUBE NS SCH (17:11)
[2023-02-16] MEDS: CHLORHEXADINE GLUC 2% CLOTH TP SCH (17:12)
[2023-02-16 20:00] VITALS: BP 111/65
[2023-02-17] MEDS: TRIAMCINOLONE 0.5% CRM 15 GM TUBE TP SCH ×2 (01:00→13:00)
[2023-02-17 04:00] VITALS: BP 109/78
[2023-02-17] MEDS: HYDROcodone/APAP 5/325 MG 1 TAB TAB PO PRN ×4 (05:25→22:27)
[2023-02-17] MEDS: LEVOTHYROXINE 0.05 MG TAB PO SCH (05:37)
[2023-02-17 07:30] VITALS: BP 127/62
[2023-02-17] MEDS: ESCITALOPRAM 20 MG TAB PO SCH (09:58)
[2023-02-17] MEDS: SODIUM CHLORIDE 1 GM TAB PO SCH ×3 (09:59→16:04)
[2023-02-17] MEDS: amLODIPine 5 MG TAB PO SCH (09:59)
[2023-02-17] MEDS: ATORVASTATIN 20 MG TAB PO SCH (09:59)
[2023-02-17] MEDS: HYDROXYZINE HYDROCHLORIDE 25 MG TAB PO SCH ×3 (10:00→16:04)
[2023-02-17] MEDS: ZIPRASIDONE 40 MG CAP PO SCH ×2 (10:00→17:26)
[2023-02-17] MEDS: PANTOPRAZOLE 40 MG TABEC PO SCH (10:00)
[2023-02-17] MEDS: OXYBUTYNIN 5 MG TAB PO SCH ×3 (10:01→16:04)
[2023-02-17] MEDS: OSELTAMIVIR PHOSPHATE 75 MG CAP PO SCH ×2 (10:01→22:17)
[2023-02-17] MEDS: levETIRAcetam 500 MG TAB PO SCH ×2 (10:01→22:15)
[2023-02-17] MEDS: MEROPENEM 1,000 MG in NACL 0.9% 100 ML IV SCH ×2 (10:03→22:14)
--- NOTE | 2023-02-17 10:34 | NUR ---
LOC AWAKE AND ALERT; VERBALLY RESPONSIVE; C/O SOB; PATIENT STATES THE USAGE OF HOME MDI WITH NO HOME OXYGEN USAGE; PATIENT ASSESSMENT DONE; REVIEWED PMHX: ASTHMA HTN SEIZURES THYROID DISEASE; REVIEWED CXR IMPRESSION 02/14 LOW LUNG VOLUMES; RECEIVED ON SUPPLEMENTAL OXYGEN AT 2 LPM VIA NC SATURATION 98%; BREATH SOUNDS DIMINISHED BILATERAL; LOGISTICS ANALYST RECOMMENDATION: PRN HHN THERAPY; OXYGEN SATURATION GREATER THAN 90%; INCENTIVE SPIROMETRY
[2023-02-17] MEDS ORDERED: ALBUTEROL SULFATE/IPRATROPIU 3 ML SOL IH ONE (10:42)
--- NOTE | 2023-02-17 10:47 | NUR ---
RECEIVED ON SUPPLEMENTAL OXYGEN AT 2 LPM VIA NC SATURATION 98%; POST HHN THERAPY TITRATED FIO2 TO ROOM AIR CLIENT CUSTOMER MANAGER TO MONITOR; TOLERATED INCENTIVE SPIROMETRY WELL WITHOUT COMPLICATIONS NOTED ENCOURAGED PATIENT TO USE INCENTIVE SPIROMETRY EVERY 1 TO 2 HOURS WHILE AWAKE
[2023-02-17 12:00] VITALS: BP 97/49
[2023-02-17 13:36] LABS: BASOPHILS # (AUTO) 0.1 K/uL (0.00-0.22); BASOPHILS % (AUTO) 0.3 % (0.0-2.0); EOSINOPHILS # (AUTO) 0.3 K/uL (0-0.4); EOSINOPHILS % (AUTO) 1.2 % (0.0-4.0); HEMATOCRIT 20.8 % (36-48); LYMPHOCYTES # (AUTO) 2.6 K/uL (2.5-16.5); LYMPHOCYTES % (AUTO) 10.9 % (20.5-51.1); MEAN CORPUSCULAR HEMOGLOBIN 29 pg (27-31); MEAN CORPUSCULAR HGB CONC 34 g/dL (33-37); MEAN CORPUSCULAR VOLUME 87.1 fL (80-94); MONOCYTES # (AUTO) 1.2 K/uL (0.8-1.0); MONOCYTES % (AUTO) 5.2 % (1.7-9.3); NEUTROPHILS # (AUTO) 19.3 K/uL (1.8-7.7); NEUTROPHILS % (AUTO) 82.4 % (42.2-75.2); PLATELET COUNT (AUTO) 501 K/uL (140-450); RED BLOOD CELL COUNT(AUTO) 2.39 MIL/uL (4.20-5.40); RED CELL DISTRIBUTION WIDTH 16.5 % (11.6-13.7); WHITE BLOOD COUNT (AUTO) 23.5 K/uL (4.8-10.8)
[2023-02-17 13:48] LABS: ANION GAP 8.2 (8-16); CARBON DIOXIDE 31.9 mmol/L (21-32); CREATININE 0.6 mg/dL (0.6-1.3); POTASSIUM 4.1 mmol/L (3.5-5.1)
[2023-02-17] MEDS: ALBUTEROL SULFATE/IPRATROPIU 3 ML SOL IH PRN (14:45)
[2023-02-17 16:00] VITALS: BP 120/54
--- NOTE | 2023-02-17 17:09 | NUR ---
Transfusing packed red blood cell unit now.
[2023-02-17 20:00] VITALS: BP 129/64
[2023-02-18] VITALS: BP 143/67
[2023-02-18] MEDS: TRIAMCINOLONE 0.5% CRM 15 GM TUBE TP SCH ×2 (01:00→13:02)
[2023-02-18 04:00] VITALS: BP 118/46
[2023-02-18] MEDS: LEVOTHYROXINE 0.05 MG TAB PO SCH (06:49)
[2023-02-18] MEDS: HYDROcodone/APAP 5/325 MG 1 TAB TAB PO PRN (06:54)
[2023-02-18 08:00] VITALS: BP 138/89
[2023-02-18 09:15] LABS: BASOPHILS # (AUTO) 0.3 K/uL (0.00-0.22); BASOPHILS % (AUTO) 1.2 % (0.0-2.0); EOSINOPHILS # (AUTO) 0.2 K/uL (0-0.4); EOSINOPHILS % (AUTO) 0.5 % (0.0-4.0); HEMATOCRIT 27.1 % (36-48); HEMOGLOBIN 9.1 g/dL (12.0-16.0); LYMPHOCYTES # (AUTO) 2.5 K/uL (2.5-16.5); LYMPHOCYTES % (AUTO) 8.5 % (20.5-51.1); MEAN CORPUSCULAR HEMOGLOBIN 29 pg (27-31); MEAN CORPUSCULAR HGB CONC 34 g/dL (33-37); MEAN CORPUSCULAR VOLUME 86.6 fL (80-94); MONOCYTES # (AUTO) 1.4 K/uL (0.8-1.0); NEUTROPHILS # (AUTO) 24.7 K/uL (1.8-7.7); NEUTROPHILS % (AUTO) 84.8 % (42.2-75.2); PLATELET COUNT (AUTO) 649 K/uL (140-450); RED BLOOD CELL COUNT(AUTO) 3.13 MIL/uL (4.20-5.40); RED CELL DISTRIBUTION WIDTH 16.3 % (11.6-13.7)
[2023-02-18] MEDS: amLODIPine 5 MG TAB PO SCH (09:21)
[2023-02-18] MEDS: SODIUM CHLORIDE 1 GM TAB PO SCH ×3 (09:21→17:31)
[2023-02-18] MEDS: ESCITALOPRAM 20 MG TAB PO SCH (09:21)
[2023-02-18] MEDS: HYDROXYZINE HYDROCHLORIDE 25 MG TAB PO SCH ×3 (09:21→17:31)
[2023-02-18] MEDS: OXYBUTYNIN 5 MG TAB PO SCH ×3 (09:21→17:32)
[2023-02-18] MEDS: ATORVASTATIN 20 MG TAB PO SCH (09:21)
[2023-02-18] MEDS: levETIRAcetam 500 MG TAB PO SCH ×2 (09:22→20:55)
[2023-02-18] MEDS: PANTOPRAZOLE 40 MG TABEC PO SCH (09:22)
[2023-02-18 09:26] LABS: ANION GAP 6.9 (8-16); CARBON DIOXIDE 31.5 mmol/L (21-32); CREATININE 0.5 mg/dL (0.6-1.3); POTASSIUM 4.4 mmol/L (3.5-5.1)
[2023-02-18] MEDS: OSELTAMIVIR PHOSPHATE 75 MG CAP PO SCH ×2 (09:28→21:36)
[2023-02-18] MEDS: MEROPENEM 1,000 MG in NACL 0.9% 100 ML IV SCH ×2 (09:29→20:43)
[2023-02-18] MEDS: ZIPRASIDONE 40 MG CAP PO SCH ×2 (09:36→17:31)
[2023-02-18 09:39] LABS: WHITE BLOOD COUNT (AUTO) 29.1 K/uL (4.8-10.8)
[2023-02-18] MEDS: ACETAMINOPHEN 325 MG TAB PO PRN (09:39)
--- NOTE | 2023-02-18 10:09 | NUR ---
Patient daughter at bedside says her condition has worsened in MST unit, says patient is shaky, numb on left leg and confused. relief manager requesting antibiotic name, sodium level and possible orders from MD for discharge. Laboratory call for WBC level of 29.1.
--- NOTE | 2023-02-18 11:19 | NUR ---
WOUND CARE RE-EVALUATION NOTE SACRALCOCCYX NO OPEN WOUND. SKIN MASD RASHES AND REDNESS IMPROVING, BUTTOCKS WITH BLANCHABLE REDNESS AND MULTIPLE DRY THIN SUPERFICIAL SCABBING SKIN. F/C WITH MODERATE AMOUNT CLEAR YELLOW URINE OBSERVED, PT. ABLE TO TURN WITH ASSISTANCE. WILL CONTINUE CURRENT TREATMENT.
[2023-02-18 12:00] VITALS: BP 113/65
--- NOTE | 2023-02-18 14:30 | NUR ---
02/18/23 RD FOLLOW UP COMPLETED PLEASE REFER TO NUTRITION ASSESSMENT UNDER CARE ACTIVITY FOR ESTIMATED NUTRITIONAL NEEDS. 1. CONTINUE REGULAR DIET TOLERATED 2. MONITOR PO INTAKE AND NUTRITION RELATED LAB VALUES 3. RD TO FOLLOW-UP 7 DAYS, LOW RISK REVIEWED BY JAZZ CANTU RD
[2023-02-18] MEDS: oxyCODONE/APAP 5/325 MG 1 TAB TAB PO PRN (15:24)
--- NOTE | 2023-02-18 15:52 | NUR ---
Patient says she is ready to go back to her room at [facility]. Education requiring MD and POA approval. Patient says she does not care what they say because she wants to go back. During morning visit with her daughter she says that she was not feeling well with nausea and other problems of shaking in her left arm and numbness in her left leg. Education about treatment continuation sometimes requires intravenous medication for infection versus tablet / capsule antibiotics. Patient needs reinforcement of teaching.
[2023-02-18 16:00] VITALS: BP 132/70
--- NOTE | 2023-02-18 16:03 | NUR ---
Patient call to nurse and she says she does not want her intravenous site so she took it out. She says she just wants to go back to her [facility] facility.
--- NOTE | 2023-02-18 19:12 | NUR ---
Unsuccessful IV start to right forearm and right upper arm. Will endorse to night team nurse.
--- NOTE | 2023-02-18 19:20 | NUR ---
RECEIVED PATIENT FROM AM NURSE FOR CONTINUITY OF CARE. PT IS STABLE
[2023-02-18 20:00] VITALS: BP 126/71
[2023-02-19] VITALS: BP 128/75
[2023-02-19] MEDS: TRIAMCINOLONE 0.5% CRM 15 GM TUBE TP SCH ×2 (01:00→12:59)
--- NOTE | 2023-02-19 01:00 | NUR ---
PATIENT ASLEEP, NO DISTRESS NOTED
[2023-02-19 04:00] VITALS: BP 132/70
[2023-02-19] MEDS: oxyCODONE/APAP 5/325 MG 1 TAB TAB PO PRN ×2 (06:12→12:55)
[2023-02-19] MEDS: LEVOTHYROXINE 0.05 MG TAB PO SCH (06:13)
[2023-02-19 07:06] LABS: ANION GAP 10.8 (8-16); CARBON DIOXIDE 30.4 mmol/L (21-32); CREATININE 0.6 mg/dL (0.6-1.3); POTASSIUM 4.2 mmol/L (3.5-5.1)
[2023-02-19 08:00] VITALS: BP 136/82
[2023-02-19] MEDS: ZIPRASIDONE 40 MG CAP PO SCH ×2 (08:47→16:54)
[2023-02-19] MEDS: SODIUM CHLORIDE 1 GM TAB PO SCH (08:47)
[2023-02-19] MEDS: ATORVASTATIN 20 MG TAB PO SCH (08:47)
[2023-02-19] MEDS: MEROPENEM 1,000 MG in NACL 0.9% 100 ML IV SCH (08:47)
[2023-02-19] MEDS: amLODIPine 5 MG TAB PO SCH (08:47)
[2023-02-19] MEDS: ESCITALOPRAM 20 MG TAB PO SCH (08:47)
[2023-02-19] MEDS: HYDROXYZINE HYDROCHLORIDE 25 MG TAB PO SCH ×3 (08:47→16:54)
[2023-02-19] MEDS: OXYBUTYNIN 5 MG TAB PO SCH ×3 (08:47→16:54)
[2023-02-19] MEDS: levETIRAcetam 500 MG TAB PO SCH (08:47)
[2023-02-19] MEDS: PANTOPRAZOLE 40 MG TABEC PO SCH (08:47)
[2023-02-19] MEDS: OSELTAMIVIR PHOSPHATE 75 MG CAP PO SCH (08:48)
[2023-02-19 08:52] LABS: BASOPHILS # (AUTO) 0.1 K/uL (0.00-0.22); BASOPHILS % (AUTO) 0.3 % (0.0-2.0); EOSINOPHILS # (AUTO) 0.2 K/uL (0-0.4); EOSINOPHILS % (AUTO) 0.9 % (0.0-4.0); HEMATOCRIT 26.2 % (36-48); HEMOGLOBIN 8.7 g/dL (12.0-16.0); LYMPHOCYTES # (AUTO) 1.9 K/uL (2.5-16.5); LYMPHOCYTES % (AUTO) 10.7 % (20.5-51.1); MEAN CORPUSCULAR HEMOGLOBIN 29 pg (27-31); MEAN CORPUSCULAR HGB CONC 33 g/dL (33-37); MEAN CORPUSCULAR VOLUME 88.1 fL (80-94); MONOCYTES # (AUTO) 1.2 K/uL (0.8-1.0); MONOCYTES % (AUTO) 6.5 % (1.7-9.3); NEUTROPHILS # (AUTO) 14.6 K/uL (1.8-7.7); NEUTROPHILS % (AUTO) 81.6 % (42.2-75.2); PLATELET COUNT (AUTO) 595 K/uL (140-450); RED BLOOD CELL COUNT(AUTO) 2.97 MIL/uL (4.20-5.40); RED CELL DISTRIBUTION WIDTH 16.4 % (11.6-13.7); WHITE BLOOD COUNT (AUTO) 17.9 K/uL (4.8-10.8)
[2023-02-19] MEDS ORDERED: POLYETHYLENE GLYCOL 17 GM/PKT PO PRN (11:00)
[2023-02-19 12:00] VITALS: BP 120/59
[2023-02-19] MEDS: THEOPHYLLINE 300 MG TABER PO SCH ×2 (12:53→16:54)
[2023-02-19] MEDS ORDERED: MERO1PIG IV (13:21)
[2023-02-19] MEDS: ALBUTEROL SULFATE/IPRATROPIU 3 ML SOL IH PRN (14:49)
[2023-02-19 16:00] VITALS: BP 102/71
--- NOTE | 2023-02-19 16:05 | NUR ---
PT. TO BE PICKED UP @1800 TRANSFERRING BACK TO [facility] Addendum: 02/19/23 at 1606 by BIANCA DOS SANTOS RN Amended: Links added.
--- NOTE | 2023-02-19 16:30 | NUR ---
REPORT GIVEN TO WILDA AT [facility]
[2023-02-19] MEDS: ACETAMINOPHEN 325 MG TAB PO PRN (18:04)
--- NOTE | 2023-02-19 18:10 | NUR ---
PT. PICKED UP BY [facility] TO BE TAKEN TO [facility]
== END 2023-02-19 18:15 | DRG 871 ==
LOC: MED 20:43 → MIC 02-11 00:31 → MTU 02-14 15:55
PROVIDERS: ADMIT Hospitalist; ATTEND Hospitalist
PROC: 0T9B70Z Drainage of Bladder with Drainage Device, Via Natural or Artificial Opening (ICD-10-PCS; 2023-02-14)
PROC: 30233N1 Transfusion of Nonautologous Red Blood Cells into Peripheral Vein, Percutaneous Approach (ICD-10-PCS; principal; 2023-02-17)
DX: A41.9 Sepsis, unspecified organism (principal); G93.41 Metabolic encephalopathy; J10.01 Influenza due to other identified influenza virus with the same other identified influenza virus pneumonia; E87.1 Hypo-osmolality and hyponatremia; N17.9 Acute kidney failure, unspecified; D62 Acute posthemorrhagic anemia; N13.6 Pyonephrosis; T83.83XA Hemorrhage due to genitourinary prosthetic devices, implants and grafts, initial encounter; Z20.822 Contact with and (suspected) exposure to COVID-19; I10 Essential (primary) hypertension; G40.909 Epilepsy, unspecified, not intractable, without status epilepticus; F99 Mental disorder, not otherwise specified; R31.0 Gross hematuria; E78.5 Hyperlipidemia, unspecified; Z66 Do not resuscitate; Z91.041 Radiographic dye allergy status; Z88.6 Allergy status to analgesic agent; Z91.013 Allergy to seafood
CPT/HCPCS: 36415; 36600; 70450; 71045; 72125; 76705; 76770; 80048; 80053; 81001; 82533; 82803; 82948; 83605; 83735; 83880; 83930; 83935; 84133; 84300; 84443; 85025; 85379; 86886; 86900; 86901; 86920; 87040; 87081; 87086; 93005; 94010; 94640; 96365; 96368; 99291; J0692; J0696; J1650; J2060; J2185; J2920; J3490; J7060; P9016; Q0092

== ENCOUNTER 2023-03-06 14:55 | Inpatient (IN) | payer OTHER ==
[~2023-03-06] VITALS: Ht 162.6 cm; Wt 85.3 kg
[2023-03-06 14:55] VITALS: BP 120/72
[~2023-03-06 14:55] MED LIST changes: +MERO1PIG IV; -NITR100C15 PO
--- NOTE | 2023-03-06 15:15 | NUR ---
62YO FEMALE PT B[facility]A [facility] C/O VAGINAL BLEEDING XYESTERDAY AND CONSTIPATION [id number]. REPORTS 2 EPISODES OF VAGINAL BLEEDING +CLOTS AND HAVING "SMALL" BM YESTERDAY. ABD MILD DISTENDED, TENDER TO TOUCH. STATES PRESSURED 8/10 PAIN W/ DECREASE IN APPETITE. DENIES VAGINAL PAIN, N/V, FEVER, CHILLS, CHEST PAIN OR SOB. PT AAOX4, NON AMB. ON 2L NC- BASELINE .HOB POSITIONED PER COMFORT. 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 SEIZURE PADS IN PLACE HX: COPD, ASTHMA, HTN, CKD, HLD, HYPOTHYROID, SEIZURES, ANXIETY, DEPRESSION, BIPOLAR ALLERGIES: PENICILLIN, SULFA,IODINE, TETRACYCLINE
--- NOTE | 2023-03-06 15:16 | NUR ---
MD LUCIO AT BEDSIDE FOR EVALUATION
[2023-03-06] MEDS ORDERED: NACL 0.9% 1,000 ML IV ONE (15:25)
--- NOTE | 2023-03-06 15:38 | NUR ---
lab at bedside
[2023-03-06 15:55] LABS: BASOPHILS % (AUTO) 0.2 % (0.0-2.0); EOSINOPHILS # (AUTO) 0.4 K/uL (0-0.4); EOSINOPHILS % (AUTO) 2.7 % (0.0-4.0); HEMATOCRIT 26.1 % (36-48); HEMOGLOBIN 8.9 g/dL (12.0-16.0); LYMPHOCYTES # (AUTO) 1.8 K/uL (2.5-16.5); LYMPHOCYTES % (AUTO) 11.7 % (20.5-51.1); MEAN CORPUSCULAR HEMOGLOBIN 28 pg (27-31); MEAN CORPUSCULAR HGB CONC 34 g/dL (33-37); MEAN CORPUSCULAR VOLUME 83.4 fL (80-94); MONOCYTES # (AUTO) 1.7 K/uL (0.8-1.0); MONOCYTES % (AUTO) 11.2 % (1.7-9.3); NEUTROPHILS # (AUTO) 11.3 K/uL (1.8-7.7); NEUTROPHILS % (AUTO) 74.2 % (42.2-75.2); PLATELET COUNT (AUTO) 615 K/uL (140-450); RED BLOOD CELL COUNT(AUTO) 3.13 MIL/uL (4.20-5.40); RED CELL DISTRIBUTION WIDTH 15.8 % (11.6-13.7); WHITE BLOOD COUNT (AUTO) 15.2 K/uL (4.8-10.8)
[2023-03-06] MEDS ORDERED: MORPHINE SULFATE 4 MG/ML SYR IVP ONE (15:55)
[2023-03-06 16:09] LABS: ALBUMIN 2.3 g/dL (3.4-5.0); ANION GAP 14.7 (8-16); CREATININE 1.3 mg/dL (0.6-1.3); POTASSIUM 4.7 mmol/L (3.5-5.1); TOTAL BILIRUBIN 0.3 mg/dL (0.0-1.0)
--- NOTE | 2023-03-06 16:19 | NUR ---
pt taken to xray/ct via randall
[2023-03-06 16:30] LABS: PROTHROMBIN TIME 9.6 secs (10.8-13.4)
--- NOTE | 2023-03-06 17:02 | NUR ---
pt brought back via randall
[2023-03-06 17:39] LABS: BILIRUBIN,URINE 2+ (NEGATIVE); BLOOD, URINE 3+ (NEGATIVE); LEUKOCYTE ESTERASE ,URINE 3+ (NEGATIVE); NITRITE, URINE POSITIVE (NEGATIVE); UGLUCOSE TRACE (NEGATIVE)
[2023-03-06 17:40] LABS: APPEARANCE,URINE TURBID (CLEAR); COLOR,URINE SLIGHT BLOODY (YELLOW)
--- NOTE | 2023-03-06 17:42 | NUR ---
pt taken to ct via randall
[2023-03-06 17:49] LABS: RBC,URINE 20-50 /HPF (0-5)
[2023-03-06] MEDS ORDERED: cefTRIAXone 1,000 MG VIAL ONE (18:10)
--- NOTE | 2023-03-06 19:21 | NUR ---
REPORT GIVEN TO SANTINO RN. TRANSFER OF CARE AT THIS TIME
[2023-03-06] MEDS ORDERED: SODIUM PHOSPHATE 118 ML ENEM RC ONE (19:55)
[2023-03-06] MEDS ORDERED: LORazepam 1 MG TAB PO PRN (20:35)
[2023-03-06] MEDS ORDERED: METOCLOPRAMIDE 10 MG/2 ML INJ VIAL IVP PRN ×2 (20:35→20:45)
[2023-03-06] MEDS ORDERED: HYDROcodone/APAP 5/325 MG 1 TAB TAB PO PRN (20:35)
[2023-03-06] MEDS ORDERED: ZOLPIDEM 5 MG TAB PO PRN (20:35)
[2023-03-06] MEDS ORDERED: ONDANSETRON 4 MG/2 ML VIAL IVP PRN ×2 (20:35→20:45)
[2023-03-06] MEDS ORDERED: ACETAMINOPHEN 325 MG TAB PO PRN ×2 (20:35→20:45)
--- NOTE | 2023-03-06 20:58 | NUR ---
Patient reported, right hip pain, 8/10.
[2023-03-06] MEDS: HYDROcodone/APAP 5/325 MG 1 TAB TAB PO PRN (21:02)
--- NOTE | 2023-03-06 21:28 | NUR ---
Patient will be admitted to care of Dr. Trinh. Admited to TELE. Will go to room 110A. Belongings list completed. Report to JIM Stern.
--- NOTE | 2023-03-06 22:05 | NUR ---
PT WAS ADMITTED TO [facility] DEPARTMENT FROM ER [facility]RU [facility] WITH DIAGNOSIS OF HYPONATREMIA WITH CONSTIPATION. PT IS AOX4, BEDBOUND, ABLE TO VERBALIZE NEEDS AND ABLE TO FOLLOW COMMANDS. PT IS ON 2L NC AND ON CARDIAC DIET. PT HAS IV ON RIGHT AC GAUGE 20, SALINE LOCK. PT HAS REDNESS ON BUTTOCKS. PT DENIES PAIN AT THIS TIME. NO S/S OF RESPIRATORY DISTRESS NOTED. PT WAS ORIENTED TO ROOM/HOSPITAL, BED BUTTON AND CALL LIGHT. ALL SAFETY MEASURES IMPLEMENTED. BED IN LOW POSITION, BED WHEELS ON LOCK AND CALL LIGHT WITHIN REACH.
--- NOTE | 2023-03-06 22:47 | NUR ---
FLEET ENEMA WAS GIVEN TO PT PER MD ORDER. ALL SAFETY MEASURES IMPLEMENTED. BED IN LOW POSITION, BED WHEELS ON LOCK AND CALL LIGHT WITHIN REACH.
[2023-03-07] VITALS: BP 104/70
--- NOTE | 2023-03-07 | NUR ---
PT WAS GIVEN ICE CHIPS PER PT REQUEST. NO COMPLAIN OF PAIN. NO S/S OF RESPIRATORY DISTRESS NOTED. ALL SAFETY MEASURES IMPLEMENTED. BED IN LOW POSITION, BED WHEELS ON LOCK AND CALL LIGHT WITHIN REACH.
[2023-03-07 00:37] LABS: ANION GAP 12.5 (8-16); CARBON DIOXIDE 24.1 mmol/L (21-32); CREATININE 1.1 mg/dL (0.6-1.3); POTASSIUM 4.6 mmol/L (3.5-5.1)
--- NOTE | 2023-03-07 02:00 | NUR ---
PT IS ON SLEEP. CHEST RISE AND FALL SYMMETRICALLY NOTED. RESPIRATION IS EVEN AND UNLABORED. ALL SAFETY MEASURES IMPLEMENTED. BED IN LOW POSITION, BED WHEELS ON LOCK AND CALL LIGHT WITHIN REACH.
[2023-03-07 04:00] VITALS: BP 107/68
--- NOTE | 2023-03-07 04:00 | NUR ---
CHECKED THE PT, STILL ON SLEEP. CHEST RISE AND FALL SYMMETRICALLY NOTED. RESPIRATION IS EVEN AND UNLABORED. ALL SAFETY MEASURES IMPLEMENTED. BED IN LOW POSITION, BED WHEELS ON LOCK AND CALL LIGHT WITHIN REACH.
[2023-03-07 04:30] LABS: ALBUMIN 2.1 g/dL (3.4-5.0); ANION GAP 13.1 (8-16); CARBON DIOXIDE 24.9 mmol/L (21-32); CREATININE 0.9 mg/dL (0.6-1.3); MAGNESIUM 1.7 mg/dL (1.8-2.4); PHOSPHORUS 5.4 mg/dL (2.5-4.9); TOTAL BILIRUBIN 0.2 mg/dL (0.0-1.0)
--- NOTE | 2023-03-07 07:20 | NUR ---
PT IS STABLE. ENDORSED PT TO MORNING SHIFT FOR CONTINUITY OF CARE.
--- NOTE | 2023-03-07 07:37 | NUR ---
RECEIVED PT CARE AND REPORT FROM LATRELL FERNANDEZ. PT IS IN BED SEMI FOWLERS, SUPINE, A&OX4, APPEARS CALM. NO VISIBLE S/S OF DISTRESS OR DISCOMFORT. DENIES PAIN OR SOB AT THIS TIME. 2L VIA AR. CALL LIGHT IS WITHIN REACH, ALL NEEDS MET AT THIS TIME.
[2023-03-07 08:00] VITALS: BP 121/69
[2023-03-07] MEDS ORDERED: POLYETHYLENE GLYCOL 17 GM/PKT PO PRN (08:10)
[2023-03-07 08:11] LABS: BASOPHILS % (AUTO) 0.3 % (0.0-2.0); EOSINOPHILS # (AUTO) 0.1 K/uL (0-0.4); EOSINOPHILS % (AUTO) 0.5 % (0.0-4.0); HEMOGLOBIN 8.5 g/dL (12.0-16.0); LYMPHOCYTES # (AUTO) 0.9 K/uL (2.5-16.5); LYMPHOCYTES % (AUTO) 5.5 % (20.5-51.1); MEAN CORPUSCULAR HEMOGLOBIN 29 pg (27-31); MEAN CORPUSCULAR HGB CONC 34 g/dL (33-37); MEAN CORPUSCULAR VOLUME 83.3 fL (80-94); MONOCYTES # (AUTO) 1.8 K/uL (0.8-1.0); MONOCYTES % (AUTO) 11.6 % (1.7-9.3); NEUTROPHILS # (AUTO) 12.9 K/uL (1.8-7.7); NEUTROPHILS % (AUTO) 82.1 % (42.2-75.2); PLATELET COUNT (AUTO) 615 K/uL (140-450); RED CELL DISTRIBUTION WIDTH 15.7 % (11.6-13.7); WHITE BLOOD COUNT (AUTO) 15.7 K/uL (4.8-10.8)
[2023-03-07] MEDS ORDERED: ALBUTEROL 0.083% 2.5 MG/3 ML NEBU INH PRN (08:15)
[2023-03-07] MEDS: DOCUSATE SODIUM 100 MG GELCAP PO SCH (08:28)
[2023-03-07 08:32] LABS: CARBON DIOXIDE 24.1 mmol/L (21-32); CREATININE 0.9 mg/dL (0.6-1.3); POTASSIUM 4.1 mmol/L (3.5-5.1)
[2023-03-07] MEDS: ASPIRIN 81 MG TAB.CHEW PO SCH (08:35)
[2023-03-07] MEDS: levETIRAcetam 500 MG TAB PO SCH ×2 (08:35→21:15)
[2023-03-07] MEDS: PANTOPRAZOLE 40 MG TABEC PO SCH (08:35)
[2023-03-07] MEDS: OXYBUTYNIN 5 MG TAB PO SCH ×3 (08:36→17:34)
[2023-03-07] MEDS: amLODIPine 5 MG TAB PO SCH (08:36)
[2023-03-07] MEDS: ENOXAPARIN 40 MG/0.4 ML SYR SUBQ SCH (08:36)
[2023-03-07] MEDS ORDERED: DOCUSATE SODIUM 100 MG GELCAP PO SCH (09:00)
[2023-03-07] MEDS ORDERED: ENOXAPARIN 40 MG/0.4 ML SYR SUBQ SCH (09:00)
[2023-03-07] MEDS ORDERED: DORZOLAMIDE 2% OP 10 ML BTL OP SCH ×2 (09:00→14:18)
[2023-03-07] MEDS: POLYETHYLENE GLYCOL 17 GM/PKT PO SCH ×2 (09:15→09:17)
--- NOTE | 2023-03-07 09:23 | NUR ---
PATIENT HAS BEEN SCREENED AND CATEGORIZED MODERATE NUTRITION RISK. PATIENT WILL BE SEEN WITHIN 3-5 DAYS OF ADMISSION. REVIEWED BY JAZZ CANTU RD
--- NOTE | 2023-03-07 09:50 | NUR ---
RECEIVED CALL FROM MURALI FROM [facility]. SHE REQUESTED UPDATE ON PATIENT CONDITION AND DIAGNOSIS. REPORT GIVEN. ACCORDING TO NOC SHIFT NURSE LATRELL, PATIENT BROUGHT IN COPY OF HER DNR FORM. HOWEVER, ER STATED THAT ORIGINAL COPY OF FORM WAS REQUIRED. ASKED MURALI IF ORIGINAL COPY COULD BE PROVIDED. HOWEVER, SHE STATED THAT ORIGINAL COPY IS IN PATIENT'S FILE THERE AND ONLY COPIES CAN BE PROVIDED AT THIS TIME.
[2023-03-07 12:00] VITALS: BP 105/68
--- NOTE | 2023-03-07 13:07 | NUR ---
TEXTED DR. BHAKTA TO INFORM OF MAG LEVEL OF 1.7 THIS MORNING. AWAITING ORDERS.
[2023-03-07 13:15] LABS: ANION GAP 13.1 (8-16); CARBON DIOXIDE 25.4 mmol/L (21-32); CREATININE 0.9 mg/dL (0.6-1.3); POTASSIUM 4.5 mmol/L (3.5-5.1)
[2023-03-07] MEDS ORDERED: MAGNESIUM OXIDE 400 MG TAB PO SCH (14:30)
--- NOTE | 2023-03-07 15:44 | NUR ---
DC PLANNING 62 YRS OLD PATIENT WAS ADMITTED FROM [facility] WITH A DX OF HYPONATREMIA WITH CONSTIPATION. PATIENT HAS A HX OF COPD ,ASTHMA ANXIETY DISORDER DISORDER BIPOLAR DEPRESSION ,SZ, HTN, HLD, AND CKD. CT ABD SHOWED LARGE COLONIC STOOL. XR ACUTE ABD SERIES SHOWED FECAL IMPACTION. RENAL US SHOWED RIGHT RENAL CYST. RAPID COVID TEST NEGATIVE. ADMINISTERED IVF AND IV ABX ROCEPHIN AND CONTINUED HOME MEDS. CONSULTED WITH NEPHRO AND WOUND CARE. DC PLAN TO RETURN TO [facility]. CM TO FOLLOW
[2023-03-07 16:00] VITALS: BP 134/99
[2023-03-07 16:17] LABS: ANION GAP 13.4 (8-16); CARBON DIOXIDE 24.7 mmol/L (21-32); CREATININE 0.8 mg/dL (0.6-1.3); POTASSIUM 4.1 mmol/L (3.5-5.1)
--- NOTE | 2023-03-07 17:40 | NUR ---
PT STATING SHE IS FEELING ANXIOUS AT THIS TIME. OFFERED ATIVAN AND PT WILLING TO TAKE IT. ADMINISTERED ATIVAN PRN.
[2023-03-07] MEDS: LORazepam 1 MG TAB PO PRN (17:42)
--- NOTE | 2023-03-07 18:47 | NUR ---
PT IS RESTING IN BED SEMI FOWLERS EATING DINNER, A&OX3-4, APPEARS CALM. NO VISIBLE S/S OF DISTRESS OR DISCOMFORT. DENIES PAIN OR SOB. CALL LIGHT IS WITHIN REACH, ALL NEEDS MET AT THIS TIME. WILL ENDORSE TO NOC SHIFT NURSE.
[2023-03-07 20:00] VITALS: BP 100/60
[2023-03-07 20:20] LABS: ANION GAP 11.7 (8-16); CARBON DIOXIDE 25.3 mmol/L (21-32); CREATININE 0.7 mg/dL (0.6-1.3)
[2023-03-07] MEDS: MAGNESIUM OXIDE 400 MG TAB PO SCH (21:16)
[2023-03-07] MEDS: ATORVASTATIN 20 MG TAB PO SCH (21:16)
[2023-03-07] MEDS: DORZOLAMIDE 2% OP 10 ML BTL OP SCH (21:32)
[2023-03-08] VITALS: BP 102/62
--- NOTE | 2023-03-08 01:50 | NUR ---
PT. HIT THE CALL LIGHT - C/O PAIN - WILL MEDICATE
--- NOTE | 2023-03-08 01:55 | NUR ---
PT SLEEPING , I CALLED HER NAME 2X BUT STILL SLEEPING SOUNDLY - WILL RE ASSESSMENT THE PAIN , CALL LIGHT WITHIN REACH .
--- NOTE | 2023-03-08 02:25 | NUR ---
RE VISIT PT , AWAKE , C/O OF PAIN , SHE RATES THE PAIN 5/ 10 - BP 109 / 62 , 02 SAT 98 % , RR 18 - WILL MEDICATE . CALL LIGT WITHIN REACH .
[2023-03-08] MEDS: HYDROcodone/APAP 5/325 MG 1 TAB TAB PO PRN ×3 (02:28→21:40)
[2023-03-08 04:00] VITALS: BP 109/71
--- NOTE | 2023-03-08 04:00 | NUR ---
RE VISITING THE PT , PT IS AWAKE , SHE SAID SHE HAS ON AND OFF SLIGHTLY SHORTNESS OF BREATH , I FOUND PT. 'S O2 CANULLA OUT OF PLACE - RE FIX THE O2 CANULLA - O2 SAT 95 % TO 96 % - WILL CONT. TO MONITOR . RR 18 .
--- NOTE | 2023-03-08 04:20 | NUR ---
RT AT BEDSIDE / RT ASSESSING THE PT . WILL CONT. TO MONITOR .CALL LIGHT WITHIN REACH .
--- NOTE | 2023-03-08 06:00 | NUR ---
ROUNDS , NO COMPLAIN MADE , WILL CONT. TO MONITOR .
[2023-03-08] MEDS: LEVOTHYROXINE 0.05 MG TAB PO SCH (06:29)
[2023-03-08 07:25] LABS: ALBUMIN 1.9 g/dL (3.4-5.0); ANION GAP 11.1 (8-16); CREATININE 0.8 mg/dL (0.6-1.3); MAGNESIUM 1.4 mg/dL (1.8-2.4); PHOSPHORUS 3.8 mg/dL (2.5-4.9); POTASSIUM 4.1 mmol/L (3.5-5.1); TOTAL BILIRUBIN 0.2 mg/dL (0.0-1.0)
--- NOTE | 2023-03-08 07:35 | NUR ---
ENDORSED TO AM NURSE FOR CONT. OF CARE , XEROX COPY OF DNR POLST FOUND ON FILE , ENDORSED TO AM NURSE TO REMIND THE DOCTOR TO REVISE THE RESUSCITATION CODE ORDER , AM NURSE VERBALIZED UNDERSTANDING .
--- NOTE | 2023-03-08 07:36 | NUR ---
RECEIVED BEDSIDE REPORT FROM NIGHTSHIFT NURSE. PT IS RESTING IN BED, STABLE, NO SIGNS OF DISTRESS. REORIENTED PT TO CALL LIGHT. WILL CONTINUE WITH CARE.
[2023-03-08 08:00] VITALS: BP 110/62
[2023-03-08 08:11] LABS: BASOPHILS # (AUTO) 0.1 K/uL (0.00-0.22); BASOPHILS % (AUTO) 0.4 % (0.0-2.0); EOSINOPHILS # (AUTO) 0.2 K/uL (0-0.4); HEMOGLOBIN 8.3 g/dL (12.0-16.0); LYMPHOCYTES # (AUTO) 1.6 K/uL (2.5-16.5); LYMPHOCYTES % (AUTO) 7.3 % (20.5-51.1); MEAN CORPUSCULAR HEMOGLOBIN 28 pg (27-31); MEAN CORPUSCULAR HGB CONC 33 g/dL (33-37); MEAN CORPUSCULAR VOLUME 83.9 fL (80-94); MONOCYTES # (AUTO) 1.8 K/uL (0.8-1.0); MONOCYTES % (AUTO) 8.5 % (1.7-9.3); NEUTROPHILS # (AUTO) 17.8 K/uL (1.8-7.7); NEUTROPHILS % (AUTO) 82.8 % (42.2-75.2); PLATELET COUNT (AUTO) 635 K/uL (140-450); RED BLOOD CELL COUNT(AUTO) 2.98 MIL/uL (4.20-5.40); RED CELL DISTRIBUTION WIDTH 15.8 % (11.6-13.7); WHITE BLOOD COUNT (AUTO) 21.5 K/uL (4.8-10.8)
[2023-03-08] MEDS: OXYBUTYNIN 5 MG TAB PO SCH ×3 (09:13→17:58)
[2023-03-08] MEDS: MAGNESIUM OXIDE 400 MG TAB PO SCH ×2 (09:13→20:20)
[2023-03-08] MEDS: DORZOLAMIDE 2% OP 10 ML BTL OP SCH ×2 (09:14→20:20)
[2023-03-08] MEDS: levETIRAcetam 500 MG TAB PO SCH ×2 (09:14→20:20)
[2023-03-08] MEDS: DOCUSATE SODIUM 100 MG GELCAP PO SCH (09:14)
[2023-03-08] MEDS: amLODIPine 5 MG TAB PO SCH (09:14)
[2023-03-08] MEDS: PANTOPRAZOLE 40 MG TABEC PO SCH (09:14)
[2023-03-08] MEDS: ASPIRIN 81 MG TAB.CHEW PO SCH (09:14)
[2023-03-08] MEDS: POLYETHYLENE GLYCOL 17 GM/PKT PO SCH (09:14)
[2023-03-08] MEDS: ENOXAPARIN 40 MG/0.4 ML SYR SUBQ SCH (09:26)
--- NOTE | 2023-03-08 10:55 | NUR ---
WOUND CARE NOTE: SKIN ASSESSMENT DONE WITH WITH THIS 62 Y/O PT. AAX4. ABLE TO TURN AND REPOSITION. PT. ADMITTED WITH MODERATED MASD TO BILATERAL BUTTOCKS WITH MULTIPLE SUPERFICIAL EROSIONS AND GROINS /PERINEUM REDNESS. PREVIOUS SNF TX WITH NYSTATIN POWDERS, POC DISCUSSED WITH PT, WILL CONTINUE NYSTATIN AND COVER WITH DRY DRESSING TO PREVENT FURTHER FRICTION DAMAGE. PT. VERBALIZES UNDERSTANDING. RECOMMENDATIONS: -CLEANSE GROINS, PERINEUM AND BUTTOCKS WITH MILD SOAP AND RODAS, PAT DRY COMPLETELY, APPLY NYSTATIN POWDER AND COVER WITH FOAM DRESSING BID AND PRN IF SOILING -POSITIONING: TURN AND REPOSITION PATIENT Q 2H OR SOONER USE PILLOWS TO KEEP BONY PROMINENCES FROM DIRECT CONTACT WITH SURFACES USE REPOSITIONING WEDGES TO PROVIDE 30-DEGREE ANGLE FOR SIDE LYING POSITIONS OFFLOADING OR FOAM DRESSING TO ALL TUBING TO PREVENT MEDICAL DEVICES RELATED PRESSURE INJURY -RE-EVALUATING AND MANAGING INCONTINENCE MONITOR SKIN CONDITION DURING POSITION CHANGE DO NOT MASSAGE REDNESS, BONY PROMINENCES FREQUENT CARA-CARE AND PROVIDE BARRIER CREAMS PRN IF SOILING MOISTURE CONTROL BY OFFER BED MCNAIR/URINAL /ABSORBENT PAD TO WICK AND HOLD MOISTURE KEEP SKIN DRY AND PROTECT FROM FRICTION -MANAGE FRICTION/SHEAR/MOBILITY KEEP HOB AT THE LOWEST LEVEL OF ELEVATION NO MORE THAN 30 DEGREE UNLESS OTHERWISE CONTRAINDICATED USE LIFT SHEET OR TRANSFER DEVICE TO MOVE PATIENT AND PREVENT LATERAL SHEER. PROTECT HEELS, ELBOWS BONY PROMINENCES WITH SKIN BERRIES OR FOAM DRESSING IF EXPOSED TO FRICTION OFFLOAD BILATERAL HEELS BY PLACING PILLOWS UNDER CALVES AT ALL TIMES, UNLESS OTHERWISE CONTRAINDICATED -PRESSURE REDISTRIBUTION SURFACE THERAPY ANGEL ISOFLEX MATTRESS -NUTRITION: PLEASE FOLLOW RD RECOMMENDATIONS AND OFFER NUTRITION SUPPLEMENTS IF ORDERED. PLEASE CONTACT WOUND CARE NURSE FOR ANY QUESTION AND CHANGE OF WOUND CONDITION.
[2023-03-08] MEDS ORDERED: TOLVAPTAN 15 MG PO SCH (11:30)
[2023-03-08 12:00] VITALS: BP 135/62
[2023-03-08] MEDS: NACL 0.9% 1,000 ML IV SCH ×2 (12:07→20:22)
[2023-03-08] MEDS ORDERED: NYSTATIN POW 100 MU/GM 15 GM BTL TP PRN (12:10)
--- NOTE | 2023-03-08 13:00 | NUR ---
PT STATES SHE IS HAVING PAIN, 8/10 IN UPPER AND LOWER BACK. PAIN ASSESSMENT DONE. NONPHARM INTERVENTIONS PROVIDED. PRN PAIN MED PROVIDED. PT STATES PAIN MED EFFECTIVE.
[2023-03-08] MEDS: NYSTATIN POW 100 MU/GM 15 GM BTL TP SCH (13:14)
[2023-03-08] MEDS ORDERED: SODIUM PHOSPHATE 118 ML ENEM RC SCH (13:15)
[2023-03-08] MEDS: SODIUM CHLORIDE 1 GM TAB PO SCH ×2 (13:20→17:58)
[2023-03-08 16:00] VITALS: BP 125/73
--- NOTE | 2023-03-08 19:30 | NUR ---
ENDORSED PT TO NIGHTSHIFT NURSE FOR CONTINUITY OF CARE. PT IS STABLE, RESTING IN BED, NO SIGNS OF DISTRESS.
[2023-03-08 20:00] VITALS: BP 123/62
[2023-03-08] MEDS: ATORVASTATIN 20 MG TAB PO SCH (20:21)
[2023-03-08] MEDS: ZOLPIDEM 5 MG TAB PO PRN (20:21)
[2023-03-09] VITALS: BP 118/65
[2023-03-09] MEDS: NYSTATIN POW 100 MU/GM 15 GM BTL TP SCH ×2 (00:26→13:13)
[2023-03-09 04:00] VITALS: BP 121/71
[2023-03-09] MEDS: LEVOTHYROXINE 0.05 MG TAB PO SCH (05:33)
--- NOTE | 2023-03-09 05:35 | NUR ---
Received a return call from [employer], releasing the body with no case. Call [employer] and informations provided to supervisor picking crew the body. Will wait for their team.
--- NOTE | 2023-03-09 07:10 | NUR ---
RECEIVED BEDSIDE REPORT FROM NIGHTSHIFT NURSE. PT IS AWAKE IN BED, STABLE, NO SIGNS OF DISTRESS, NO REPORTS OF PAIN OR DISCOMFORT. REORIENTED PT TO CALL LIGHT. NO FURTHER NEEDS ARE TO BE MET AT THIS TIME. WILL CONTINUE WITH PT CARE.
[2023-03-09 07:23] LABS: BASOPHILS # (AUTO) 0.1 K/uL (0.00-0.22); BASOPHILS % (AUTO) 0.3 % (0.0-2.0); EOSINOPHILS # (AUTO) 0.3 K/uL (0-0.4); EOSINOPHILS % (AUTO) 1.9 % (0.0-4.0); HEMATOCRIT 22.2 % (36-48); HEMOGLOBIN 7.6 g/dL (12.0-16.0); LYMPHOCYTES # (AUTO) 1.7 K/uL (2.5-16.5); LYMPHOCYTES % (AUTO) 10.1 % (20.5-51.1); MEAN CORPUSCULAR HEMOGLOBIN 28 pg (27-31); MEAN CORPUSCULAR HGB CONC 34 g/dL (33-37); MEAN CORPUSCULAR VOLUME 82.5 fL (80-94); MONOCYTES % (AUTO) 11.5 % (1.7-9.3); NEUTROPHILS # (AUTO) 12.9 K/uL (1.8-7.7); NEUTROPHILS % (AUTO) 76.2 % (42.2-75.2); PLATELET COUNT (AUTO) 595 K/uL (140-450); RED BLOOD CELL COUNT(AUTO) 2.69 MIL/uL (4.20-5.40); RED CELL DISTRIBUTION WIDTH 15.6 % (11.6-13.7); WHITE BLOOD COUNT (AUTO) 16.9 K/uL (4.8-10.8)
[2023-03-09 07:40] LABS: ALBUMIN 1.9 g/dL (3.4-5.0); ANION GAP 8.7 (8-16); CARBON DIOXIDE 27.8 mmol/L (21-32); CREATININE 0.5 mg/dL (0.6-1.3); MAGNESIUM 1.4 mg/dL (1.8-2.4); PHOSPHORUS 3.5 mg/dL (2.5-4.9); POTASSIUM 3.5 mmol/L (3.5-5.1); TOTAL BILIRUBIN 0.1 mg/dL (0.0-1.0)
[2023-03-09 08:00] VITALS: BP 118/70
[2023-03-09] MEDS ORDERED: MAG SULF 2000 MG/WATER PREMIX 50 ML IV SCH (09:00)
[2023-03-09] MEDS: SODIUM CHLORIDE 1 GM TAB PO SCH ×3 (09:06→18:33)
[2023-03-09] MEDS: ASPIRIN 81 MG TAB.CHEW PO SCH (09:06)
[2023-03-09] MEDS: levETIRAcetam 500 MG TAB PO SCH ×2 (09:06→21:17)
[2023-03-09] MEDS: DOCUSATE SODIUM 100 MG GELCAP PO SCH (09:06)
[2023-03-09] MEDS: PANTOPRAZOLE 40 MG TABEC PO SCH (09:06)
[2023-03-09] MEDS: amLODIPine 5 MG TAB PO SCH (09:07)
[2023-03-09] MEDS: HYDROcodone/APAP 5/325 MG 1 TAB TAB PO PRN ×3 (09:07→19:39)
[2023-03-09] MEDS: OXYBUTYNIN 5 MG TAB PO SCH ×3 (09:07→18:33)
[2023-03-09] MEDS: MAGNESIUM OXIDE 400 MG TAB PO SCH ×2 (09:08→21:18)
[2023-03-09] MEDS: POLYETHYLENE GLYCOL 17 GM/PKT PO SCH (09:08)
[2023-03-09] MEDS: DORZOLAMIDE 2% OP 10 ML BTL OP SCH ×2 (09:08→21:17)
[2023-03-09] MEDS: ENOXAPARIN 40 MG/0.4 ML SYR SUBQ SCH (09:09)
[2023-03-09] MEDS: SODIUM FERRIC GLUCONATE 125 MG in NACL 0.9% 100 ML IV SCH (12:30)
[2023-03-09 16:00] VITALS: BP 121/73
--- NOTE | 2023-03-09 18:00 | NUR ---
PT SEEN BY NEPHARI JONES THIS MORNING. INFORMED PT TO RESTRICT FLUIDS DUE TO LOW SODIUM LEVELS, PT VERBALIZE UNDERSTANDING - HOWEVER - PT CONTINUED TO REQUEST FOR FLUIDS THROUGHOUT THE DAY. PT WAS ONLY PROVIDED ICE CHIPS. PT BECAME VERY FRUSTRATED, ATTEMPTED TO CALM AND EDUCATE PT ON IMPORTANCE OF FLUID RESTRICTION. PT STILL UPSET. PROVIDED DISTRACTIONS TO CALM PT. URINE OUTPUT VERY HIGH BY END OF SHIFT.
--- NOTE | 2023-03-09 19:00 | NUR ---
ENDORSED TO NIGHTSHIFT NURSE FOR CONTINUITY OF CARE. PT IS STABLE. RESTING IN BED. NO SIGNS OF DISTRESS.
[2023-03-09 20:00] VITALS: BP 144/75
[2023-03-09] MEDS: ZOLPIDEM 5 MG TAB PO PRN (21:18)
[2023-03-09] MEDS: ATORVASTATIN 20 MG TAB PO SCH (21:18)
[2023-03-10] VITALS: BP 128/75
[2023-03-10] MEDS: LORazepam 1 MG TAB PO PRN (00:04)
[2023-03-10] MEDS: HYDROcodone/APAP 5/325 MG 1 TAB TAB PO PRN ×2 (00:04→11:06)
[2023-03-10] MEDS: NYSTATIN POW 100 MU/GM 15 GM BTL TP SCH (00:13)
[2023-03-10 04:00] VITALS: BP 124/67
[2023-03-10] MEDS: LEVOTHYROXINE 0.05 MG TAB PO SCH (06:33)
[2023-03-10 07:03] LABS: BASOPHILS # (AUTO) 0.1 K/uL (0.00-0.22); BASOPHILS % (AUTO) 0.4 % (0.0-2.0); EOSINOPHILS # (AUTO) 0.3 K/uL (0-0.4); EOSINOPHILS % (AUTO) 2.4 % (0.0-4.0); HEMATOCRIT 24.2 % (36-48); HEMOGLOBIN 8.2 g/dL (12.0-16.0); LYMPHOCYTES # (AUTO) 1.9 K/uL (2.5-16.5); MEAN CORPUSCULAR HEMOGLOBIN 28 pg (27-31); MEAN CORPUSCULAR HGB CONC 34 g/dL (33-37); MEAN CORPUSCULAR VOLUME 83.5 fL (80-94); MONOCYTES # (AUTO) 1.9 K/uL (0.8-1.0); NEUTROPHILS % (AUTO) 70.6 % (42.2-75.2); PLATELET COUNT (AUTO) 548 K/uL (140-450); RED CELL DISTRIBUTION WIDTH 15.7 % (11.6-13.7); WHITE BLOOD COUNT (AUTO) 14.2 K/uL (4.8-10.8)
[2023-03-10 07:18] LABS: ALBUMIN 1.9 g/dL (3.4-5.0); ANION GAP 8.8 (8-16); CARBON DIOXIDE 29.5 mmol/L (21-32); CREATININE 0.5 mg/dL (0.6-1.3); MAGNESIUM 1.5 mg/dL (1.8-2.4); PHOSPHORUS 3.5 mg/dL (2.5-4.9); POTASSIUM 3.3 mmol/L (3.5-5.1); TOTAL BILIRUBIN 0.1 mg/dL (0.0-1.0)
[2023-03-10 07:51] LABS: LYMPHOCYTES % (AUTO) 13.5 % (20.5-51.1); MONOCYTES % (AUTO) 13.1 % (1.7-9.3)
[2023-03-10 08:00] VITALS: BP 145/84
[2023-03-10] MEDS: MAGNESIUM OXIDE 400 MG TAB PO SCH (08:51)
[2023-03-10] MEDS: levETIRAcetam 500 MG TAB PO SCH (08:51)
[2023-03-10] MEDS: PANTOPRAZOLE 40 MG TABEC PO SCH (08:51)
[2023-03-10] MEDS: DOCUSATE SODIUM 100 MG GELCAP PO SCH (08:52)
[2023-03-10] MEDS: ASPIRIN 81 MG TAB.CHEW PO SCH (08:52)
[2023-03-10] MEDS: SODIUM CHLORIDE 1 GM TAB PO SCH (08:52)
[2023-03-10] MEDS: OXYBUTYNIN 5 MG TAB PO SCH (08:53)
[2023-03-10] MEDS: amLODIPine 5 MG TAB PO SCH (08:53)
[2023-03-10] MEDS: POLYETHYLENE GLYCOL 17 GM/PKT PO SCH (08:54)
[2023-03-10] MEDS: ENOXAPARIN 40 MG/0.4 ML SYR SUBQ SCH (08:56)
[2023-03-10] MEDS: DORZOLAMIDE 2% OP 10 ML BTL OP SCH (08:57)
[2023-03-10] MEDS ORDERED: MULTIVITAMIN/MINERALS 1 TAB PO SCH (09:00)
[2023-03-10] MEDS ORDERED: KCL 20 MEQ IN 100 mL PREMIX 200 ML IV PRN (09:10)
[2023-03-10] MEDS ORDERED: MAG SULF 2000 MG/WATER PREMIX 50 ML IV PRN (09:10)
[2023-03-10] MEDS ORDERED: POTASSIUM CHLORIDE 10 MEQ TABER PO PRN (09:10)
[2023-03-10] MEDS ORDERED: MAGNESIUM OXIDE 400 MG TAB PO PRN (09:10)
[2023-03-10] MEDS ORDERED: LEVOFLOXACIN 500 MG/D5W PREMIX 100 ML IV SCH (10:00)
[2023-03-10] MEDS ORDERED: LEVO-481 PO (10:19)
[2023-03-10] MEDS ORDERED: SODI100076 PO (10:19)
[2023-03-10] MEDS ORDERED: MIRABULK PO (10:20)
--- NOTE | 2023-03-10 10:55 | NUR ---
Patient returning to [facility], transport arranged through [facility] Call the [facility]([phone]), requested gurney mode. Vendor is [facility], pick-up time 1230.
[2023-03-10] MEDS: SODIUM FERRIC GLUCONATE 125 MG in NACL 0.9% 100 ML IV SCH (11:04)
[2023-03-10 11:49] VITALS: BP 145/84
--- NOTE | 2023-03-10 12:49 | NUR ---
DISCHARGE PATIENT IN STABLE CONDITION BACK TO [facility] PER PCP ORDER VIA [facility] NON-EMERGENCY MEDICAL TRANSPORTATION. IV ACCESS, ALATORRE CATHETER, & WRIST BAND REMOVED BEFORE PATIENT TRANSFER OUT. NURSE ATTEMPT GIVE REPORT TO [facility] [phone]) BUT UNABLE TO GET HOLD ANY NURSE. NURSE DID INFORM [id number] ([phone]) THAT PATIENT IS DISCHARGE BACK TO [facility] WITH PO ANTIBIOTIC. DISCHARGE DOCUMENTATION AND MEDICAL CHART COPY RELEASE TO [facility].
== END 2023-03-10 12:50 | DRG 391 ==
LOC: MED 14:55 → MTU 20:39 → MED 20:47 → MTU 21:09
PROVIDERS: ADMIT Internal Medicine; ATTEND Internal Medicine
DX: K59.00 Constipation, unspecified (principal); R65.11 Systemic inflammatory response syndrome (SIRS) of non-infectious origin with acute organ dysfunction; E87.1 Hypo-osmolality and hyponatremia; N39.0 Urinary tract infection, site not specified; N17.9 Acute kidney failure, unspecified; E44.0 Moderate protein-calorie malnutrition; R63.1 Polydipsia; R31.9 Hematuria, unspecified; Z20.822 Contact with and (suspected) exposure to COVID-19; F31.9 Bipolar disorder, unspecified; J44.9 Chronic obstructive pulmonary disease, unspecified; F41.9 Anxiety disorder, unspecified; G89.29 Other chronic pain; M54.9 Dorsalgia, unspecified; K21.9 Gastro-esophageal reflux disease without esophagitis; E03.9 Hypothyroidism, unspecified; R33.9 Retention of urine, unspecified; I12.9 Hypertensive chronic kidney disease with stage 1 through stage 4 chronic kidney disease, or unspecified chronic kidney disease; N18.9 Chronic kidney disease, unspecified; G40.909 Epilepsy, unspecified, not intractable, without status epilepticus; E83.42 Hypomagnesemia; Z88.1 Allergy status to other antibiotic agents; Z91.041 Radiographic dye allergy status; Z88.0 Allergy status to penicillin; Z91.013 Allergy to seafood; Z88.2 Allergy status to sulfonamides; Z88.8 Allergy status to other drugs, medicaments and biological substances; Z91.018 Allergy to other foods; Z79.82 Long term (current) use of aspirin; Z79.899 Other long term (current) drug therapy; Z68.32 Body mass index [BMI] 32.0-32.9, adult
CPT/HCPCS: 36415; 74022; 76770; 80048; 80053; 81001; 82728; 83540; 83690; 83735; 83930; 83935; 84100; 84300; 85025; 85610; 86886; 86900; 86901; 87040; 87081; 87086; 94640; 96374; 96375; 99291; J0696; J1650; J1956; J2270; J2405; J2916; J3475; J7060; J7613; Q0092; Q9967

== ENCOUNTER 2023-04-23 23:08 | Inpatient (IN) | payer OTHER ==
[~2023-04-23] VITALS: Ht 162.6 cm; Wt 92.5 kg
[~2023-04-23 23:08] MED LIST changes: +LEVO-481 PO; -MERO1PIG IV; +MIRABULK PO; +SODI100076 PO
--- NOTE | 2023-04-23 23:09 | NUR ---
ANDREW MARTINEZS TO BED #9
[2023-04-23 23:10] VITALS: BP 136/72; PULSE 88; RESP 16; TEMP 97.4; O2SAT 95
--- NOTE | 2023-04-23 23:18 | NUR ---
Dr. Hernandez examining patient.
--- NOTE | 2023-04-23 23:30 | NUR ---
ANDREW FROM [facility] WITH C/O UTI SX. PT WAS NOTED TO HAVE RED COLORED URINE IN ALATORRE AT APPROX 1900.
--- NOTE | 2023-04-23 23:35 | NUR ---
LAB AT BEDSIDE
--- NOTE | 2023-04-23 23:45 | NUR ---
F/C CHANGED. 16FR INSERTED WITH NO RETURN OF URINE AT THIS TIME
--- NOTE | 2023-04-24 | NUR ---
PT IS HYPOTENSIVE. IV ESTABLISHED FLUIDS BEGUN. DR HERNANDEZ AWARE
[2023-04-24 00:25] LABS: ALBUMIN 2.3 g/dL (3.4-5.0); ANION GAP 12.4 (8-16); CARBON DIOXIDE 25.5 mmol/L (21-32); CREATININE 1.4 mg/dL (0.6-1.3); POTASSIUM 3.9 mmol/L (3.5-5.1); TOTAL BILIRUBIN 0.1 mg/dL (0.0-1.0)
[2023-04-24 00:31] LABS: APPEARANCE,URINE CLOUDY (CLEAR); BILIRUBIN,URINE NEGATIVE (NEGATIVE); BLOOD, URINE 3+ (NEGATIVE); COLOR,URINE RED (YELLOW); LEUKOCYTE ESTERASE ,URINE 2+ (NEGATIVE); NITRITE, URINE POSITIVE (NEGATIVE); PH,URINE 7.5 (5.0-9.0); UGLUCOSE 1+ (NEGATIVE)
[2023-04-24 00:43] LABS: RBC,URINE TOO NUMEROUS TO COUN /HPF (0-5)
[2023-04-24 00:51] LABS: BASOPHILS # (AUTO) 0.1 K/uL (0.00-0.22); BASOPHILS % (AUTO) 0.5 % (0.0-2.0); EOSINOPHILS # (AUTO) 0.4 K/uL (0-0.4); EOSINOPHILS % (AUTO) 2.3 % (0.0-4.0); HEMATOCRIT 28.1 % (36-48); HEMOGLOBIN 9.2 g/dL (12.0-16.0); LYMPHOCYTES # (AUTO) 2.3 K/uL (2.5-16.5); MEAN CORPUSCULAR HEMOGLOBIN 26 pg (27-31); MEAN CORPUSCULAR HGB CONC 33 g/dL (33-37); MEAN CORPUSCULAR VOLUME 79.5 fL (80-94); NEUTROPHILS # (AUTO) 12.7 K/uL (1.8-7.7); NEUTROPHILS % (AUTO) 77.2 % (42.2-75.2); PLATELET COUNT (AUTO) 461 K/uL (140-450); RED BLOOD CELL COUNT(AUTO) 3.53 MIL/uL (4.20-5.40); RED CELL DISTRIBUTION WIDTH 16.1 % (11.6-13.7); WHITE BLOOD COUNT (AUTO) 16.4 K/uL (4.8-10.8)
[2023-04-24] MEDS ORDERED: cefTRIAXone 1,000 MG VIAL ONE (01:10)
[2023-04-24] MEDS ORDERED: NACL 0.9% 2,000 ML IV ONE (01:10)
--- NOTE | 2023-04-24 02:50 | NUR ---
awake, water given
--- NOTE | 2023-04-24 02:53 | NUR ---
X-Ray at bedside.
--- NOTE | 2023-04-24 06:00 | NUR ---
RESTING IN BED WITH EYES CLOSED RESPIRATIONS REGULAR AND UNLABORED
[2023-04-24] MEDS ORDERED: ACETAMINOPHEN 325 MG TAB PO PRN (06:10)
[2023-04-24] MEDS ORDERED: MORPHINE SULFATE 4 MG/ML SYR IVP PRN (06:10)
[2023-04-24] MEDS ORDERED: LORazepam 1 MG TAB PO PRN (06:10)
[2023-04-24] MEDS ORDERED: NACL 0.9% 1,000 ML IV SCH (06:10)
[2023-04-24] MEDS ORDERED: LACTATED RINGERS 1,000 ML IV SCH (06:10)
[2023-04-24] MEDS ORDERED: NACL 0.9% 1,000 ML IV ONE (08:00)
--- NOTE | 2023-04-24 08:14 | NUR ---
PT TX TO BED 110B RPORT GIVEN TO ALVARO FERNANDEZ. PT STABLE ON TX.
[2023-04-24] MEDS ORDERED: DOCUSATE SODIUM 100 MG GELCAP PO SCH (09:00)
--- NOTE | 2023-04-24 09:22 | NUR ---
PATIENT HAS BEEN SCREENED AND CATEGORIZED LOW NUTRITION RISK. PATIENT WILL BE SEEN WITHIN 7 DAYS OF ADMISSION. 05/01/[address]
[2023-04-24] MEDS: DOCUSATE SODIUM 100 MG GELCAP PO SCH (09:42)
--- NOTE | 2023-04-24 11:00 | NUR ---
adimt the patinet from the mergency room bassem Garcia in rm 110B aox4 with admitting diagnosis of urinary tract infection , acute kidney injury . for antibiotics . will continue to monitor
[2023-04-24] MEDS: HYDROcodone/APAP 5/325 MG 1 TAB TAB PO PRN ×3 (11:02→23:19)
[2023-04-24] MEDS: LEVOFLOXACIN 750 MG/D5W PREMIX 150 ML IV SCH (12:41)
[2023-04-24] MEDS: NACL 0.9% 1,000 ML IV SCH (12:43)
--- NOTE | 2023-04-24 14:33 | NUR ---
gave an update to sister in law briseyda Jann [phone]
[2023-04-24 15:19] VITALS: PULSE 68; RESP 20; O2SAT 99
[2023-04-24 16:00] VITALS: BP 143/77; PULSE 85; RESP 19; TEMP 97.6; O2SAT 85
[2023-04-24 16:10] VITALS: PULSE 68; RESP 20; O2SAT 98
[2023-04-24] MEDS: ONDANSETRON 4 MG/2 ML VIAL IVP PRN (18:14)
[2023-04-24 18:48] VITALS: BP 145/86; PULSE 60; RESP 20; TEMP 98
--- NOTE | 2023-04-24 19:06 | NUR ---
will endorse to overnight caregiver rn for continuity of care
--- NOTE | 2023-04-24 19:15 | NUR ---
RECEIVED PATIENT FROM AM NURSE FOR CONTINUITY OF CARE. PT IS STABLE
[2023-04-24 20:00] VITALS: BP 147/84; PULSE 84; RESP 19; RESP 20; TEMP 97.2; O2SAT 95
[2023-04-24] MEDS: levETIRAcetam 500 MG TAB PO SCH (20:26)
[2023-04-24] MEDS: DORZOLAMIDE 2% OP 10 ML BTL OP SCH (20:34)
[2023-04-24] MEDS ORDERED: VANCOMYCIN PER PHARMACY MC PRN (21:25)
[2023-04-24] MEDS ORDERED: VANCOMYCIN 1GM/DEXT 5% PREMIX 200 ML IV SCH (22:00)
[2023-04-24] MEDS ORDERED: VANCOMYCIN 1,000 MG VIAL ONE (23:04)
[2023-04-25] MEDS: NACL 0.9% 1,000 ML IV SCH
[2023-04-25 04:00] VITALS: BP 131/87; PULSE 78; RESP 19; TEMP 97.4; O2SAT 96
[2023-04-25] MEDS: LEVOTHYROXINE 0.05 MG TAB PO SCH (05:57)
[2023-04-25 06:16] LABS: BASOPHILS # (AUTO) 0.1 K/uL (0.00-0.22); BASOPHILS % (AUTO) 0.5 % (0.0-2.0); EOSINOPHILS # (AUTO) 0.7 K/uL (0-0.4); EOSINOPHILS % (AUTO) 4.6 % (0.0-4.0); HEMATOCRIT 27.5 % (36-48); LYMPHOCYTES # (AUTO) 2.3 K/uL (2.5-16.5); LYMPHOCYTES % (AUTO) 15.6 % (20.5-51.1); MEAN CORPUSCULAR HEMOGLOBIN 26 pg (27-31); MEAN CORPUSCULAR HGB CONC 33 g/dL (33-37); MEAN CORPUSCULAR VOLUME 78.9 fL (80-94); MONOCYTES # (AUTO) 1.4 K/uL (0.8-1.0); MONOCYTES % (AUTO) 9.6 % (1.7-9.3); NEUTROPHILS % (AUTO) 69.7 % (42.2-75.2); PLATELET COUNT (AUTO) 472 K/uL (140-450); RED BLOOD CELL COUNT(AUTO) 3.49 MIL/uL (4.20-5.40); RED CELL DISTRIBUTION WIDTH 16.1 % (11.6-13.7); WHITE BLOOD COUNT (AUTO) 14.4 K/uL (4.8-10.8)
[2023-04-25 06:34] LABS: ANION GAP 11.2 (8-16); CARBON DIOXIDE 25.4 mmol/L (21-32); POTASSIUM 3.6 mmol/L (3.5-5.1)
--- NOTE | 2023-04-25 07:15 | NUR ---
RECEIVED REPORT FROM MORTGAGE LOAN UNDERWRITER NURSE FOR CONTINUITY OF CARE. PT IS STABLE AT THIS TIME.
[2023-04-25] MEDS ORDERED: NACL 0.9% 1,000 ML IV SCH (07:35)
[2023-04-25 08:00] VITALS: BP 113/74; PULSE 83; RESP 19; TEMP 98.3; O2SAT 97
[2023-04-25] MEDS: SODIUM CHLORIDE 1 GM TAB PO SCH ×2 (08:16→20:10)
[2023-04-25] MEDS: HYDROcodone/APAP 5/325 MG 1 TAB TAB PO PRN ×4 (08:16→20:57)
[2023-04-25] MEDS: PANTOPRAZOLE 40 MG TABEC PO SCH (08:16)
[2023-04-25] MEDS: ESCITALOPRAM 20 MG TAB PO SCH (08:18)
[2023-04-25] MEDS: HYDROXYZINE HYDROCHLORIDE 25 MG TAB PO SCH ×3 (08:19→16:45)
[2023-04-25] MEDS: DOCUSATE SODIUM 100 MG GELCAP PO SCH (08:19)
[2023-04-25] MEDS: ATORVASTATIN 20 MG TAB PO SCH (08:19)
[2023-04-25] MEDS: OXYBUTYNIN 5 MG TAB PO SCH ×3 (08:19→16:45)
[2023-04-25] MEDS: ASPIRIN 81 MG TAB.CHEW PO SCH (08:19)
[2023-04-25] MEDS: levETIRAcetam 500 MG TAB PO SCH ×2 (08:19→20:10)
[2023-04-25] MEDS: amLODIPine 5 MG TAB PO SCH (08:20)
[2023-04-25] MEDS: ONDANSETRON 4 MG/2 ML VIAL IVP PRN (08:20)
[2023-04-25] MEDS: ZIPRASIDONE 40 MG CAP PO SCH ×2 (08:20→16:44)
[2023-04-25] MEDS: DORZOLAMIDE 2% OP 10 ML BTL OP SCH ×2 (08:32→20:16)
[2023-04-25] MEDS: SODIUM FERRIC GLUCONATE 125 MG in NACL 0.9% 100 ML IV SCH (09:20)
--- NOTE | 2023-04-25 11:03 | NUR ---
PT. WITH LOW MARCELLO SCALE AT MODERATE TO HIGH RISK, CONTINUE TO FOLLOW PRESSURE INJURY PREVENTION INTERVENTIONS. -POSITIONING: TURN AND REPOSITION PATIENT Q 2H OR SOONER USE PILLOWS TO KEEP BONY PROMINENCES FROM DIRECT CONTACT WITH SURFACES USE REPOSITIONING WEDGES TO PROVIDE 30-DEGREE ANGLE FOR SIDE LYING POSITIONS OFFLOADING OR FOAM DRESSING TO ALL TUBING TO PREVENT MEDICAL DEVICES RELATED PRESSURE INJURY -RE-EVALUATING AND MANAGING INCONTINENCE MONITOR SKIN CONDITION DURING POSITION CHANGE DO NOT MASSAGE REDNESS, BONY PROMINENCES FREQUENT CARA-CARE AND PROVIDE BARRIER CREAMS PRN IF SOILING MOISTURE CONTROL BY OFFER BED MCNAIR/URINAL /ABSORBENT PAD TO WICK AND HOLD MOISTURE KEEP SKIN DRY AND PROTECT FROM FRICTION -MANAGE FRICTION/SHEAR/MOBILITY KEEP HOB AT THE LOWEST LEVEL OF ELEVATION NO MORE THAN 30 DEGREE UNLESS OTHERWISE CONTRAINDICATED USE LIFT SHEET OR TRANSFER DEVICE TO MOVE PATIENT AND PREVENT LATERAL SHEER. PROTECT HEELS, ELBOWS BONY PROMINENCES WITH SKIN BERRIES OR FOAM DRESSING IF EXPOSED TO FRICTION OFFLOAD BILATERAL HEELS BY PLACING PILLOWS UNDER CALVES AT ALL TIMES, UNLESS OTHERWISE CONTRAINDICATED -PRESSURE REDISTRIBUTION SURFACE THERAPY ANGEL ISOFLEX MATTRESS -NUTRITION: PLEASE FOLLOW RD RECOMMENDATIONS AND OFFER NUTRITION SUPPLEMENTS IF ORDERED. PLEASE CONTACT WOUND CARE NURSE FOR ANY QUESTION AND CHANGE OF WOUND CONDITION.
--- NOTE | 2023-04-25 12:08 | NUR ---
DC PLANNING 62 YRS OLD PATIENT WAS ADMITTED FROM [facility] WITH A DX OF UTI AND MARY. PATIENT HAS A HX OF COPD ,ASTHMA ANXIETY DISORDER DISORDER BIPOLAR DEPRESSION ,SZ, HTN, HLD, AND CKD. CXR SHOWED RIGHT MIDDLE LOBE INFILTRATE POSSIBLE PNEUMONIA. ADMINISTERED IVF AND IV ABX LEVAQUIN AND CONTINUED HOME MEDS. URINE CULTURE PENDING. CONSULTED WITH NEPHRO AND ID . DC PLAN TO RETURN TO [facility] WHEN STABLE. CM TO FOLLOW.
[2023-04-25] MEDS ORDERED: HYDRAGUARD CREAM TP ONE (12:59)
[2023-04-25] MEDS ORDERED: HYDRAGUARD CREAM TP SCH (13:45)
[2023-04-25 16:00] VITALS: BP 130/73; PULSE 80; RESP 18; TEMP 98; O2SAT 95
--- NOTE | 2023-04-25 19:45 | NUR ---
ENDORSED PT TO FRANCHISE MANAGER NURSE FOR CONTINUITY OF CARE. PT STABLE AT THIS TIME.
--- NOTE | 2023-04-25 19:48 | NUR ---
RECEIVED PT FROM AM NURSE FOR CONTINUITY OF CARE. PT IS STABLE
[2023-04-25 20:00] VITALS: PULSE 86; RESP 19; O2SAT 95
[2023-04-25] MEDS: VANCOMYCIN 1.25GM PREMIX 250 ML IV SCH (21:07)
[2023-04-26] MEDS: HYDROcodone/APAP 5/325 MG 1 TAB TAB PO PRN ×5 (01:04→18:48)
[2023-04-26 04:00] VITALS: BP 132/74; PULSE 84; RESP 18; TEMP 98.1; O2SAT 96
[2023-04-26] MEDS: LEVOTHYROXINE 0.05 MG TAB PO SCH (05:55)
[2023-04-26 07:00] LABS: CARBON DIOXIDE 25.1 mmol/L (21-32); CREATININE 0.9 mg/dL (0.6-1.3); POTASSIUM 3.1 mmol/L (3.5-5.1)
--- NOTE | 2023-04-26 07:15 | NUR ---
RECEIVED REPORT FROM DIRECTOR OF RADIOLOGY NURSE FOR CONTINUITY OF CARE. PT IS STABLE AT THIS TIME.
[2023-04-26 07:43] LABS: BASOPHILS # (AUTO) 0.1 K/uL (0.00-0.22); BASOPHILS % (AUTO) 0.8 % (0.0-2.0); EOSINOPHILS # (AUTO) 0.8 K/uL (0-0.4); EOSINOPHILS % (AUTO) 6.6 % (0.0-4.0); HEMATOCRIT 26.1 % (36-48); HEMOGLOBIN 8.5 g/dL (12.0-16.0); LYMPHOCYTES # (AUTO) 1.8 K/uL (2.5-16.5); LYMPHOCYTES % (AUTO) 15.2 % (20.5-51.1); MEAN CORPUSCULAR HEMOGLOBIN 26 pg (27-31); MEAN CORPUSCULAR HGB CONC 33 g/dL (33-37); MEAN CORPUSCULAR VOLUME 79.1 fL (80-94); MONOCYTES # (AUTO) 1.1 K/uL (0.8-1.0); MONOCYTES % (AUTO) 9.5 % (1.7-9.3); NEUTROPHILS # (AUTO) 8.1 K/uL (1.8-7.7); NEUTROPHILS % (AUTO) 67.9 % (42.2-75.2); PLATELET COUNT (AUTO) 446 K/uL (140-450); RED CELL DISTRIBUTION WIDTH 16.1 % (11.6-13.7)
[2023-04-26 08:00] VITALS: BP 114/61; PULSE 71; PULSE 79; RESP 18; TEMP 97.6; O2SAT 96; O2SAT 97
[2023-04-26] MEDS ORDERED: POTASSIUM CHLORIDE 40 MEQ, LIDOCAINE 1% 25 MG in NACL 0.9% 250 ML IV SCH (09:00)
[2023-04-26] MEDS: SODIUM FERRIC GLUCONATE 125 MG in NACL 0.9% 100 ML IV SCH (09:00)
--- NOTE | 2023-04-26 10:06 | NUR ---
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
[2023-04-26] MEDS: DORZOLAMIDE 2% OP 10 ML BTL OP SCH ×2 (10:08→20:34)
[2023-04-26] MEDS: amLODIPine 5 MG TAB PO SCH (10:09)
[2023-04-26] MEDS: HYDROXYZINE HYDROCHLORIDE 25 MG TAB PO SCH ×3 (10:09→17:25)
[2023-04-26] MEDS: levETIRAcetam 500 MG TAB PO SCH ×2 (10:09→20:34)
[2023-04-26] MEDS: DOCUSATE SODIUM 100 MG GELCAP PO SCH (10:09)
[2023-04-26] MEDS: ZIPRASIDONE 40 MG CAP PO SCH ×2 (10:09→17:25)
[2023-04-26] MEDS: ASPIRIN 81 MG TAB.CHEW PO SCH (10:10)
[2023-04-26] MEDS: PANTOPRAZOLE 40 MG TABEC PO SCH (10:10)
[2023-04-26] MEDS: OXYBUTYNIN 5 MG TAB PO SCH ×3 (10:10→17:25)
[2023-04-26] MEDS: ESCITALOPRAM 20 MG TAB PO SCH (10:10)
[2023-04-26] MEDS: SODIUM CHLORIDE 1 GM TAB PO SCH ×2 (10:14→20:34)
[2023-04-26] MEDS: ATORVASTATIN 20 MG TAB PO SCH (10:15)
[2023-04-26] MEDS: LEVOFLOXACIN 750 MG/D5W PREMIX 150 ML IV SCH (11:38)
[2023-04-26 13:47] VITALS: O2SAT 93
[2023-04-26 16:00] VITALS: BP 113/84; PULSE 79; RESP 18; TEMP 97.4; O2SAT 96
--- NOTE | 2023-04-26 18:49 | NUR ---
medicated as ordered for pain.[email or web address]
--- NOTE | 2023-04-26 19:44 | NUR ---
ENDORSED PT TO WATER TREATMENT OPERATOR NURSE FOR CONTINUITY OF CARE. PT STABLE AT THIS TIME.
--- NOTE | 2023-04-26 19:45 | NUR ---
RECEIVED PT FROM MORNING SHIFT NURSE. PT IS AOX4, BEDBOUND, ABLE TO VERBALIZE NEEDS AND ABLE TO FOLLOW COMMANDS. PT IS ON 2L NC AND ON CARDIAC DIET. PT HAS IV ON RIGHT HAND GAUGE 22 RUNNING WITH NS AT 40 ML/HR. PT SKIN IS INTACT BUT THERE'S EXCORATION ON BUTT AND ON PERINEAL AREA. NO COMPLAIN OF PAIN. NO S/S OF RESPIRATORY DISTRESS NOTED. ALL SAFETY MEASURES IMPLEMENTED. BED IN LOW POSITION, BED WHEELS ON LOCK AND CALL LIGHT WITHIN REACH.
[2023-04-26 20:00] VITALS: PULSE 85; RESP 18; O2SAT 100; O2SAT 85
[2023-04-26] MEDS: VANCOMYCIN 1.25GM PREMIX 250 ML IV SCH (20:33)
--- NOTE | 2023-04-26 20:34 | NUR ---
ALL SCHEDULED AND PRESCRIBED MEDICATION WAS GIVEN TO PT PER MD ORDER. ALL SAFETY MEASURES IMPLEMENTED. BED IN LOW POSITION, BED WHEELS ON LOCK AND CALL LIGHT WITHIN REACH.
--- NOTE | 2023-04-26 22:00 | NUR ---
PT WAS GIVEN ICE CHIPS PER PT REQUEST. NO COMPLAIN OF PAIN AT THIS TIME. NO S/S OF RESPIRATORY DISTRESS NOTED. ALL SAFETY MEASURES IMPLEMENTED. BED IN LOW POSITION, BED WHEELS ON LOCK AND CALL LIGHT WITHIN REACH.
--- NOTE | 2023-04-27 | NUR ---
PT IS ON SLEEP. CHEST RISE AND FALL SYMMETRICALLY NOTED, RESPIRATION IS EVEN AND UNLABORED. ALL SAFETY MEASURES IMPLEMENTED. BED IN LOW POSITION, BED WHEELS ON LOCK AND CALL LIGHT WITHIN REACH.
--- NOTE | 2023-04-27 02:00 | NUR ---
CHECKED THE PT STILL ON SLEEP. CHEST RISE AND FALL SYMMETRICALLY NOTED. RESPIRATION IS EVEN AND UNLABORED. ALL SAFETY MEASURES IMPLEMENTED. BED IN LOW POSITION, BED WHEELS ON LOCK AND CALL LIGHT WITHIN REACH.
[2023-04-27 04:00] VITALS: BP 125/64; PULSE 71; RESP 18; TEMP 97.5; O2SAT 100
[2023-04-27] MEDS: HYDROcodone/APAP 5/325 MG 1 TAB TAB PO PRN ×3 (04:03→20:55)
--- NOTE | 2023-04-27 04:03 | NUR ---
PT WAS GIVEN PRN PAIN MEDICATION DUE TO GENERALIZED PAIN WITH PAIN SCALE OF 6/10. ALL SAFETY MEASURES IMPLEMENTED. BED WHEELS ON LOCK, BED IN LOW POSITION AND CALL LIGHT WITHIN REACH.
[2023-04-27] MEDS: LEVOTHYROXINE 0.05 MG TAB PO SCH (05:34)
--- NOTE | 2023-04-27 05:34 | NUR ---
SCHDULED AND PRESCRIBED MEDICATION WAS GIVEN TO PT PER MD ORDER. ALL SAFETY MEASURES IMPLEMENTED. BED WHEELS ON LOCK, BED IN LOW POSITION AND CALL LIGHT WITHIN REACH.
[2023-04-27 06:35] LABS: BASOPHILS # (AUTO) 0.1 K/uL (0.00-0.22); BASOPHILS % (AUTO) 0.6 % (0.0-2.0); EOSINOPHILS # (AUTO) 0.8 K/uL (0-0.4); HEMATOCRIT 23.1 % (36-48); HEMOGLOBIN 7.5 g/dL (12.0-16.0); LYMPHOCYTES # (AUTO) 1.9 K/uL (2.5-16.5); LYMPHOCYTES % (AUTO) 17.1 % (20.5-51.1); MEAN CORPUSCULAR HEMOGLOBIN 26 pg (27-31); MEAN CORPUSCULAR HGB CONC 33 g/dL (33-37); MEAN CORPUSCULAR VOLUME 80.2 fL (80-94); MONOCYTES # (AUTO) 1.2 K/uL (0.8-1.0); MONOCYTES % (AUTO) 10.5 % (1.7-9.3); NEUTROPHILS # (AUTO) 7.2 K/uL (1.8-7.7); NEUTROPHILS % (AUTO) 64.8 % (42.2-75.2); PLATELET COUNT (AUTO) 370 K/uL (140-450); RED BLOOD CELL COUNT(AUTO) 2.88 MIL/uL (4.20-5.40); RED CELL DISTRIBUTION WIDTH 15.5 % (11.6-13.7); WHITE BLOOD COUNT (AUTO) 11.1 K/uL (4.8-10.8)
[2023-04-27 06:39] LABS: CARBON DIOXIDE 24.5 mmol/L (21-32); CREATININE 0.8 mg/dL (0.6-1.3); POTASSIUM 3.5 mmol/L (3.5-5.1)
--- NOTE | 2023-04-27 07:40 | NUR ---
PT IS STABLE. ENDORSED PT TO MORNING SHIFT FOR CONTINUITY OF CARE.
--- NOTE | 2023-04-27 07:41 | NUR ---
RECEIVED BEDSIDE REPORT FROM NIGHTSHIFT NURSE. PT IS RESTING IN BED, NO SIGNS OF DISTRESS, NO REPORTS OF PAIN OR DISCOMFORT WILL CONTINUE WITH PT CARE. CALL LIGHT PLACED WITHIN REACH.
[2023-04-27 08:00] VITALS: PULSE 73; RESP 18; O2SAT 98
[2023-04-27] MEDS: DORZOLAMIDE 2% OP 10 ML BTL OP SCH ×2 (09:00→21:00)
[2023-04-27] MEDS: DOCUSATE SODIUM 100 MG GELCAP PO SCH (09:21)
[2023-04-27] MEDS: OXYBUTYNIN 5 MG TAB PO SCH ×3 (09:21→18:06)
[2023-04-27] MEDS: ESCITALOPRAM 20 MG TAB PO SCH (09:21)
[2023-04-27] MEDS: ASPIRIN 81 MG TAB.CHEW PO SCH (09:22)
[2023-04-27] MEDS: SODIUM FERRIC GLUCONATE 125 MG in NACL 0.9% 100 ML IV SCH (09:22)
[2023-04-27] MEDS: MUPIROCIN CA NASAL 2% 1GM TUBE NS SCH (09:22)
[2023-04-27] MEDS: levETIRAcetam 500 MG TAB PO SCH ×2 (09:23→20:51)
[2023-04-27] MEDS: ATORVASTATIN 20 MG TAB PO SCH (09:23)
[2023-04-27] MEDS: HYDROXYZINE HYDROCHLORIDE 25 MG TAB PO SCH ×3 (09:23→18:05)
[2023-04-27] MEDS: amLODIPine 5 MG TAB PO SCH (09:23)
[2023-04-27] MEDS: SODIUM CHLORIDE 1 GM TAB PO SCH ×2 (09:23→20:51)
[2023-04-27] MEDS: PANTOPRAZOLE 40 MG TABEC PO SCH (09:24)
[2023-04-27] MEDS: ZIPRASIDONE 40 MG CAP PO SCH ×2 (09:26→18:05)
[2023-04-27] MEDS: CHLORHEXADINE GLUC 2% CLOTH TP SCH (09:30)
[2023-04-27 19:25] VITALS: O2SAT 94
--- NOTE | 2023-04-27 19:34 | NUR ---
ENDORSED PT TO NIGHTSHIFT NURSE FOR CONTINUITY OF CARE. PT RESTING IN BED, STABLE, NO SIGNS OF DISTRESS, CALL LIGHT WITHIN REACH.
--- NOTE | 2023-04-27 19:35 | NUR ---
RECEIVED PT FROM MORNING SHIFT NURSE. PT IS AOX4, BEDBOUND, ABLE TO VERBALIZE NEEDS AND ABLE TO FOLLOW COMMANDS. PT IS ON 2L NC AND ON CARDIAC DIET. PT HAS IV ON RIGHT HAND GAUGE 22 RUNNING WITH NS AT 40 ML/HR. PT SKIN IS INTACT BUT THERE'S EXCORIATION ON BUTT AND ON PERINEAL AREA. PT COMPLAIN OF GENERALIZED PAIN. NO S/S OF RESPIRATORY DISTRESS NOTED. ALL SAFETY MEASURES IMPLEMENTED. BED IN LOW POSITION, BED WHEELS ON LOCK AND CALL LIGHT WITHIN REACH.
[2023-04-27 20:00] VITALS: BP 121/59; PULSE 82; PULSE 96; RESP 18; TEMP 98; O2SAT 96; O2SAT 97
--- NOTE | 2023-04-27 20:41 | NUR ---
CALLED PHARMACY TO ASK IF IT SAFE TO GIVE THE VANCO TO PT WITH VANCO THROUGH OF 16.2 KAYLYNN/PHARMACIST ALLOWED TO HANG THE VANCO TO PT.
[2023-04-27] MEDS: VANCOMYCIN 1.25GM PREMIX 250 ML IV SCH (20:56)
--- NOTE | 2023-04-27 21:00 | NUR ---
ALL SCHEDULED AND PRESCRIBED MEDICATION WAS GIVEN TO PT PER MD ORDER. PRN MEDICATION WAS ALSO GIVEN DUE TO GENERALIZED PAIN WITH PAIN SCALE OF 6/10. ALL SAFETY MEASURES IMPLEMENTED. BED IN LOW POSITION, BED WHEELS ON LOCK AND CALL LIGHT WITHIN REACH.
--- NOTE | 2023-04-28 | NUR ---
PT IS ON SLEEP. CHEST RISE AND FALL SYMMETRICALLY NOTED. RESPIRATION IS EVEN AND UNLABORED. ALL SAFETY MEASURES IMPLEMENTED. BED WHEELS ON LOCK AND CALL LIGHT WITHIN REACH.
[2023-04-28] MEDS: HYDROcodone/APAP 5/325 MG 1 TAB TAB PO PRN ×2 (01:15→06:29)
--- NOTE | 2023-04-28 01:15 | NUR ---
PRN PAIN MEDICATION WAS GIVEN TO PT DUE TO GENERALIZED PAIN WITH PAIN SCALE OF 6/10. ALL SAFETY MEASURES IMPLEMENTED. BED WHEELS ON LOCK AND CALL LIGHT WITHIN REACH.
[2023-04-28 04:00] VITALS: BP 127/76; PULSE 60; RESP 18; TEMP 97.3; O2SAT 100
--- NOTE | 2023-04-28 04:00 | NUR ---
MORNING CARE WAS GIVEN TO PT. CHANGED LINENS, GOWN AND BLANKET. EMPTY PT'S ALATORRE CATHETER WITH OUTPUT OF 2100. ALL SAFETY MEASURES IMPLEMENTED. BED IN LOW POSITION, BED WHEELS ON LOCK AND CALL LIGHT WITHIN REACH.
[2023-04-28] MEDS: LEVOTHYROXINE 0.05 MG TAB PO SCH (05:33)
[2023-04-28 06:18] LABS: BASOPHILS # (AUTO) 0.1 K/uL (0.00-0.22); BASOPHILS % (AUTO) 0.8 % (0.0-2.0); EOSINOPHILS # (AUTO) 0.8 K/uL (0-0.4); EOSINOPHILS % (AUTO) 8.3 % (0.0-4.0); HEMOGLOBIN 7.7 g/dL (12.0-16.0); LYMPHOCYTES # (AUTO) 2.2 K/uL (2.5-16.5); LYMPHOCYTES % (AUTO) 21.4 % (20.5-51.1); MEAN CORPUSCULAR HEMOGLOBIN 27 pg (27-31); MEAN CORPUSCULAR HGB CONC 33 g/dL (33-37); MEAN CORPUSCULAR VOLUME 79.8 fL (80-94); MONOCYTES # (AUTO) 1.2 K/uL (0.8-1.0); MONOCYTES % (AUTO) 11.3 % (1.7-9.3); NEUTROPHILS % (AUTO) 58.2 % (42.2-75.2); PLATELET COUNT (AUTO) 403 K/uL (140-450); RED BLOOD CELL COUNT(AUTO) 2.89 MIL/uL (4.20-5.40); RED CELL DISTRIBUTION WIDTH 16.2 % (11.6-13.7); WHITE BLOOD COUNT (AUTO) 10.2 K/uL (4.8-10.8)
[2023-04-28 06:41] LABS: ANION GAP 9.7 (8-16); CARBON DIOXIDE 25.7 mmol/L (21-32); CREATININE 0.9 mg/dL (0.6-1.3); POTASSIUM 3.4 mmol/L (3.5-5.1)
--- NOTE | 2023-04-28 07:10 | NUR ---
RECEIVED PT ON 2L NASAL CANNULA. SATURATION 94%. NO DISTRESS NOTED. CALL LIGHT WITHIN REACH OF PT. WILL CONTINUE TO MONITOR.
[2023-04-28 07:18] VITALS: O2SAT 94
--- NOTE | 2023-04-28 07:19 | NUR ---
PT IS STABLE. ENDORSED PT TO MORNING SHIFT NURSE FOR CONTINUITY OF CARE.
--- NOTE | 2023-04-28 07:20 | NUR ---
RECEIVED BEDSIDE REPORT FROM NIGHTSHIFT NURSE. PT ASLEEP IN BED, WOKE TO NAME AND TOUCH, NO SIGNS OF DISTRESS, NO REPORTS OF PAIN OR DISCOMFORT. CALL LIGHT PLACED WITHIN REACH. NO FURTHER NEEDS ARE TO BE MET AT THIS TIME, WILL CONTINUE WITH PT CARE.
[2023-04-28] MEDS: DORZOLAMIDE 2% OP 10 ML BTL OP SCH (09:00)
[2023-04-28] MEDS: PANTOPRAZOLE 40 MG TABEC PO SCH (09:08)
[2023-04-28] MEDS: SODIUM FERRIC GLUCONATE 125 MG in NACL 0.9% 100 ML IV SCH (09:08)
[2023-04-28] MEDS: ESCITALOPRAM 20 MG TAB PO SCH (09:09)
[2023-04-28] MEDS: OXYBUTYNIN 5 MG TAB PO SCH (09:09)
[2023-04-28] MEDS: ATORVASTATIN 20 MG TAB PO SCH (09:09)
[2023-04-28] MEDS: HYDROXYZINE HYDROCHLORIDE 25 MG TAB PO SCH (09:09)
[2023-04-28] MEDS: levETIRAcetam 500 MG TAB PO SCH (09:10)
[2023-04-28] MEDS: amLODIPine 5 MG TAB PO SCH (09:10)
[2023-04-28] MEDS: DOCUSATE SODIUM 100 MG GELCAP PO SCH (09:10)
[2023-04-28] MEDS: ZIPRASIDONE 40 MG CAP PO SCH (09:12)
[2023-04-28] MEDS: SODIUM CHLORIDE 1 GM TAB PO SCH (09:12)
[2023-04-28] MEDS: MUPIROCIN CA NASAL 2% 1GM TUBE NS SCH (09:19)
[2023-04-28] MEDS: ASPIRIN 81 MG TAB.CHEW PO SCH (09:19)
[2023-04-28] MEDS: CHLORHEXADINE GLUC 2% CLOTH TP SCH (09:20)
[2023-04-28] MEDS ORDERED: POTASSIUM CHLORIDE 10 MEQ TABER PO ONE (09:25)
[2023-04-28] MEDS ORDERED: LEVO750T75 PO (10:10)
[2023-04-28] MEDS ORDERED: POTASSIUM CHLORIDE 10 MEQ TABER PO SCH (10:57)
--- NOTE | 2023-04-28 10:57 | NUR ---
CALLED ERNESTO FROM [id number] TO ARRANGE TRANSPORTATION. RESERVATION ID #[id number]. AWAITING CALLBACK FROM DISPATCHER FOR [facility]. DR. ABDALLA AND PRIMARY RN ASHLEY GARCIA.
--- NOTE | 2023-04-28 11:35 | NUR ---
RECEIVED CALL FROM [employer] [id number], ETA PICKUP IS 13:30 WITH [facility].
[2023-04-28 12:10] VITALS: BP 113/56; PULSE 69; RESP 19; TEMP 97.6
--- NOTE | 2023-04-28 14:00 | NUR ---
DISCHARGE EDUCATION PROVIDED. FAMILY INFORMED. MARIA ESTHER QUILES CONTACTED, REPORT GIVEN TO NURSE RIGOBERTO. PT WAS PICKED UP BY TRANSPORTATION, LEFT UNIT VIA GURNEY. STABLE UPON LEAVING. IV WAS REMOVED, ID BAND REMOVED.
== END 2023-04-28 14:55 | DRG 871 ==
LOC: MED 23:08 → MTU 04-24 06:13 → MED 04-24 06:17
PROVIDERS: ADMIT Hospitalist; ATTEND Hospitalist
DX: A41.9 Sepsis, unspecified organism (principal); E43 Unspecified severe protein-calorie malnutrition; J18.9 Pneumonia, unspecified organism; N39.0 Urinary tract infection, site not specified; N17.9 Acute kidney failure, unspecified; E87.1 Hypo-osmolality and hyponatremia; J96.11 Chronic respiratory failure with hypoxia; J44.0 Chronic obstructive pulmonary disease with (acute) lower respiratory infection; G40.909 Epilepsy, unspecified, not intractable, without status epilepticus; K21.9 Gastro-esophageal reflux disease without esophagitis; E78.00 Pure hypercholesterolemia, unspecified; F31.9 Bipolar disorder, unspecified; D64.9 Anemia, unspecified; E83.52 Hypercalcemia; Y95 Nosocomial condition; E03.9 Hypothyroidism, unspecified; I10 Essential (primary) hypertension; Z88.5 Allergy status to narcotic agent; Z88.0 Allergy status to penicillin; Z88.2 Allergy status to sulfonamides; Z88.8 Allergy status to other drugs, medicaments and biological substances; Z88.1 Allergy status to other antibiotic agents; Z91.041 Radiographic dye allergy status; Z79.899 Other long term (current) drug therapy; Z99.81 Dependence on supplemental oxygen; Z68.35 Body mass index [BMI] 35.0-35.9, adult
CPT/HCPCS: 36415; 71045; 80048; 80053; 80202; 81001; 82728; 83540; 83605; 83880; 85025; 87040; 87081; 87086; 96365; 99285; J0696; J1644; J1956; J2001; J2405; J2916; J3370; J3372; J3480; J7030; Q0092